=== PATIENT | male | born 1965 | race Caucasian/White ===

== ENCOUNTER 2021-04-12 19:35 | Inpatient (IN) | payer MEDICAID, SELFPAY ==
--- NOTE | 2021-04-12 19:47 | W.ED.MALEGU ---
Documented by User: Migel Paz MD 04/13/21 15:41 HPI - Male Genitourinary General: Chief complaint: ER Hold Stated complaint: FEVER Time Seen by Provider: 04/12/21 19:44 Source: family Limitations: language barrier History of Present Illness: HPI Narrative: Mr. Mittal is a 55-year-old gentleman with significant past medical history of MS who require suprapubic catheter who presents emergency department due to recurrent fevers. Symptom has been going on for a number of months after an exchange of his suprapubic catheter. It was subsequently rechanged today by urology however he continues to have fevers. No other specific focal signs of infection. No abdominal symptoms or tenderness. The fevers are variable however can recur and typically improve with Tylenol. Overall the intensity of symptoms has persisted. The course has been worsening somewhat overall. No other specific known exacerbating or alleviating factors. History is somewhat limited by baseline MS debility and language barrier despite use of humanities and languages professor line via telephone. Review of Systems General: Reports: 10 or more systems reviewed and unremarkable except in HPI and below Narrative: ROS limited by method of obtaining, history provided by . CONSTITUTIONAL: Recurrent fevers as noted in HPI, fatigue EYES - baseline visual disturbance EARS - denies ear issues. NOSE - denies congestion or rhinorrhea. THROAT - denies sore throat or difficulty swallowing. CARDIOVASCULAR - denies chest pain and palpitations RESPIRATORY - denies shortness of breath and cough GASTROINTESTINAL - denies abdominal pain, no nausea vomiting, no changes in bowel habits GENITOURINARY - suprapubic catheter as noted in HPI MUSCULOSKELETAL- denies deformity or pain SKIN - denies rashes or new changed skin lesions NEUROLOGIC - MS baseline debility HEMATOLOGIC/LYMPHATIC - denies easy bruising or lymphadenopathy. [facility] ED PFSH: Medical History (Updated 04/13/21 @ 13:11 by Erasto Glez MD) Chronic constipation Multiple sclerosis Neurogenic bladder Urinary retention Surgical History (Updated 04/13/21 @ 00:32 by Migel Paz MD) Chronic suprapubic catheter Status post cholecystectomy Family History Other Pancreatic cancer Social History Smoking and tobacco status: never smoked Alcohol intake: never Caregiver/support person: Yes Marital status: Physical Exam Narrative: EXAM NARRATIVE: GENERAL/CONSTITUTIONAL - ill-appearing, clammy skin. No acute distress. Eyes - disconjugate gaze, no conjunctival injection. ENMT - Atraumatic external nose and ears. Moist mucous membranes NECK - supple. trachea midline CARDIOVASCULAR - tachycardia. regular rate and rhythm. Peripheral pulses 2+ and equal RESPIRATORY -clear to auscultation bilaterally. No retractions or accessory muscle use. ABDOMEN/GI - Nontender/Nondistended. No tenderness to percussion or evidence of peritonitis. Suprapubic catheter ostomy site appears without evidence of cellulitis. MSK - Extremities without obvious deformity or tenderness to palpation SKIN - Warm, Dry NEURO - alert and appropriately oriented. Reportedly baseline debility PSYCH - Appropriate mood and affect Course ED course: - Patient was seen and evaluated by me at bedside - Patient placed on cardiac monitors, IV access obtained - Initial evaluation notable for somewhat ill appearance, no acute distress - Labs and imaging obtained and reviewed - Fluids and antibiotics given positive SIRS criteria with potential source of infection. - Labs notable for no leukocytosis. Metabolic panel with likely evidence of mild dehydration, patient has chronic MS which likely explains his low creatinine. Lactate normal. Urinalysis concerning for urinary tract infection. Patient Covid positive. - Imaging notable for normal chest x-ray. No significant acute inflammatory abnormality noted on CT abdomen pelvis. Given patient's baseline debility imaging was needed to rule out ascending infection. - Upon serial reexamination after treatment the patient was slightly improved though patient remained tachycardic - Based on patient history, evaluation, labs, and imaging as interpreted the most likely cause of the patient's condition is infectious. This case is significantly challenging as the patient has multiple sources of infection or possible infection for his symptoms. His procalcitonin is negative and he does not have leukocytosis though clinically he appears ill and is certainly at high risk for bacterial infection. - The case was discussed with Dr. Alvarez who will come and evaluate the patient - Patient care handed off to overnight ED physician Dr. Herr pending disposition after evaluation by hospitalist team. Vital Signs: Vital signs: Vital Signs Temperature 99.3 F 04/13/21 10:36 Pulse Rate 105 H 04/13/21 14:32 Respiratory Rate 20 H 04/13/21 11:15 Blood Pressure 96/67 04/13/21 14:32 Pulse Oximetry 97 04/13/21 14:32 MDM - Male Medical Records: Attestation: I reviewed the patient's medical records. Lab Data: Attestation: I reviewed the patient's lab results. Labs: Lab Results 04/12/21 04/12/21 04/12/21 Range/Units 20:20 20:20 20:20 WBC 7.2 (4.0-10.0) 10^3/ uL RBC 4.90 (4.1-5.3) 10^6/u L Hgb 13.8 (11.7-16.6) g/dL Hct 43.5 (42.0-52.0) % MCV 88.8 (80-94) fL MCH 28.2 (28.0-34.0) pg MCHC 31.7 (30.0-36.0) g/dL RDW 16.2 H (12.1-15.1) % Plt Count 303 (130-400) 10^3/c mm MPV 9.1 (7.4-10.4) fL Neut % (Auto) 59.7 % Lymph % (Auto) 30.4 % [place] % (Auto) 8.2 % Eos % (Auto) 0.0 % Baso % (Auto) 0.3 % Neut # (Auto) 4.27 (1.8-7.7) 10^3/u L Lymph # (Auto) 2.2 (0.8-4.8) 10^3/u L [place] # (Auto) 0.6 (0.2-0.9) 10^3/u L Eos # (Auto) 0.0 (0.0-0.8) 10^3/u L Baso # (Auto) 0.0 (0.0-0.1) 10^3/u L Nucleated RBC % (a uto) 0 % Nucleated RBCs # 0.0 /100WBC Sodium 131 L (136-145) mmol/L Potassium 4.5 (3.5-5.1) mmol/L Chloride 97 L (98-107) mmol/L Carbon Dioxide 25 (22-29) mmol/L Anion Gap 13.5 (5-19) BUN 11 (6-20) mg/dL Creatinine 0.3 L (0.7-1.2) mg/dL GFR Calculation 312.4 H (90-130) mL/min Glucose 119 H (65-115) mg/dL Calculated Osmolal ity 273 L (285-295) mOsm/k g Lactic Acid 0.9 (0.5-2.2) mmol/L Calcium 8.2 L (8.5-10.5) mg/dL Total Bilirubin 0.6 (0.15-1.2) mg/dL AST 21 (0-40) U/L ALT 17 (0-41) U/L Alkaline Phosphata se 88 (40-130) IU/L Total Protein 7.5 (6.6-8.7) g/dL Albumin 3.5 (3.5-5.2) g/dL Globulin 4.0 (1.3-4.6) g/dL Procalcitonin 0.24 (0-0.5) ng/mL Urine Color (Yellow) Urine Appearance (CLEAR) Urine pH (5-7) Ur Specific Gravit y (1.005-1.030) Urine Protein (Negative) Urine Glucose (UA) (Normal) Urine Ketones (Negative) Urine Blood (Negative) Urine Nitrate (Negative) Urine Bilirubin (Negative) Prot Sulfosalicyli c Acd (Negative) Urine Urobilinogen (Negative) mg/dL Ur Leukocyte Mirtha ase (Negative) Urine RBC (0-2) /hpf Urine WBC (0-5) /hpf Ur Squamous Epith Cells (0-5) /hpf Amorphous Sediment /hpf Urine Bacteria (NONE) /hpf Urine Mucus /hpf SARS-CoV-2 Ag (Rap id) (Negative) 04/12/21 04/12/21 Range/Units 21:55 22:00 WBC (4.0-10.0) 10^3/ uL RBC (4.1-5.3) 10^6/u L Hgb (11.7-16.6) g/dL Hct (42.0-52.0) % MCV (80-94) fL MCH (28.0-34.0) pg MCHC (30.0-36.0) g/dL RDW (12.1-15.1) % Plt Count (130-400) 10^3/c mm MPV (7.4-10.4) fL Neut % (Auto) % Lymph % (Auto) % [place] % (Auto) % Eos % (Auto) % Baso % (Auto) % Neut # (Auto) (1.8-7.7) 10^3/u L Lymph # (Auto) (0.8-4.8) 10^3/u L [place] # (Auto) (0.2-0.9) 10^3/u L Eos # (Auto) (0.0-0.8) 10^3/u L Baso # (Auto) (0.0-0.1) 10^3/u L Nucleated RBC % (a uto) % Nucleated RBCs # /100WBC Sodium (136-145) mmol/L Potassium (3.5-5.1) mmol/L Chloride (98-107) mmol/L Carbon Dioxide (22-29) mmol/L Anion Gap (5-19) BUN (6-20) mg/dL Creatinine (0.7-1.2) mg/dL GFR Calculation (90-130) mL/min Glucose (65-115) mg/dL Calculated Osmolal ity (285-295) mOsm/k g Lactic Acid (0.5-2.2) mmol/L Calcium (8.5-10.5) mg/dL Total Bilirubin (0.15-1.2) mg/dL AST (0-40) U/L ALT (0-41) U/L Alkaline Phosphata se (40-130) IU/L Total Protein (6.6-8.7) g/dL Albumin (3.5-5.2) g/dL Globulin (1.3-4.6) g/dL Procalcitonin (0-0.5) ng/mL Urine Color Yellow (Yellow) Urine Appearance Sl hazy (CLEAR) Urine pH 9 H (5-7) Ur Specific Gravit y 1.010 (1.005-1.030) Urine Protein 2+ H (Negative) Urine Glucose (UA) Norm (Normal) Urine Ketones 1+ H (Negative) Urine Blood 3+ H (Negative) Urine Nitrate Positive H (Negative) Urine Bilirubin Neg (Negative) Prot Sulfosalicyli c Acd Positive (Negative) Urine Urobilinogen Norm (Negative) mg/dL Ur Leukocyte Mirtha ase 2+ H (Negative) Urine RBC Too numerous to c nt H (0-2) /hpf Urine WBC Too numerous to c nt H (0-5) /hpf Ur Squamous Epith Cells 0-4 H (0-5) /hpf Amorphous Sediment 2+ /hpf Urine Bacteria 4+ H (NONE) /hpf Urine Mucus 4+ /hpf SARS-CoV-2 Ag (Rap id) Positive H (Negative) Imaging Data: CXR: Attestation: I personally reviewed and interpreted this imaging study as follows: My impression: No acute abnormality Critical Care Time Critical Care Time: Critical Care Time: Yes Total Critical Care Time: 35 Attestation: This case had a high probability of a clinically significant, sudden, or life threatening deterioration of this patient's condition which required my full and direct attention, intervention and personal management. Discharge Plan Discharge Admit Provider: Nicki Yu Clinical Impression: Acute UTI, Neurogenic bladder, Chronic suprapubic catheter, COVID-19 Condition: Stable Discharge Diet: Usual diet Discharge Activity: Resume usual activity Coding Level of Care Code ED Broke Handler for Chg Fwd Documented by User: Sarthak Herr MD 04/13/21 01:56 HPI - Male Genitourinary General: Chief complaint: ER Hold Stated complaint: FEVER Time Seen by Provider: 04/12/21 19:44 PFSH ED PFSH: Medical History (Updated 04/13/21 @ 13:11 by Erasto Glez MD) Chronic constipation Multiple sclerosis Neurogenic bladder Urinary retention Surgical History (Updated 04/13/21 @ 00:32 by Migel Paz MD) Chronic suprapubic catheter Status post cholecystectomy Family History Other Pancreatic cancer Social History Smoking and tobacco status: never smoked Alcohol intake: never Caregiver/support person: Yes Marital status: Course Vital Signs: Vital signs: Vital Signs Temperature 99.3 F 04/13/21 10:36 Pulse Rate 105 H 04/13/21 14:32 Respiratory Rate 20 H 04/13/21 11:15 Blood Pressure 96/67 04/13/21 14:32 Pulse Oximetry 97 04/13/21 14:32 MDM - Male MDM Narrative: Medical decision making narrative: Patient spiked another fever to 104. Patient was seen in the ER by hospitalist Dr. Byrd and he will admit. Patient has had IV antibiotics and IV fluids. Lab Data: Labs: Lab Results 04/12/21 04/12/21 04/12/21 Range/Units 20:20 20:20 20:20 WBC 7.2 (4.0-10.0) 10^3/ uL RBC 4.90 (4.1-5.3) 10^6/u L Hgb 13.8 (11.7-16.6) g/dL Hct 43.5 (42.0-52.0) % MCV 88.8 (80-94) fL MCH 28.2 (28.0-34.0) pg MCHC 31.7 (30.0-36.0) g/dL RDW 16.2 H (12.1-15.1) % Plt Count 303 (130-400) 10^3/c mm MPV 9.1 (7.4-10.4) fL Neut % (Auto) 59.7 % Lymph % (Auto) 30.4 % [place] % (Auto) 8.2 % Eos % (Auto) 0.0 % Baso % (Auto) 0.3 % Neut # (Auto) 4.27 (1.8-7.7) 10^3/u L Lymph # (Auto) 2.2 (0.8-4.8) 10^3/u L [place] # (Auto) 0.6 (0.2-0.9) 10^3/u L Eos # (Auto) 0.0 (0.0-0.8) 10^3/u L Baso # (Auto) 0.0 (0.0-0.1) 10^3/u L Nucleated RBC % (a uto) 0 % Nucleated RBCs # 0.0 /100WBC Sodium 131 L (136-145) mmol/L Potassium 4.5 (3.5-5.1) mmol/L Chloride 97 L (98-107) mmol/L Carbon Dioxide 25 (22-29) mmol/L Anion Gap 13.5 (5-19) BUN 11 (6-20) mg/dL Creatinine 0.3 L (0.7-1.2) mg/dL GFR Calculation 312.4 H (90-130) mL/min Glucose 119 H (65-115) mg/dL Calculated Osmolal ity 273 L (285-295) mOsm/k g Lactic Acid 0.9 (0.5-2.2) mmol/L Calcium 8.2 L (8.5-10.5) mg/dL Total Bilirubin 0.6 (0.15-1.2) mg/dL AST 21 (0-40) U/L ALT 17 (0-41) U/L Alkaline Phosphata se 88 (40-130) IU/L Total Protein 7.5 (6.6-8.7) g/dL Albumin 3.5 (3.5-5.2) g/dL Globulin 4.0 (1.3-4.6) g/dL Procalcitonin 0.24 (0-0.5) ng/mL Urine Color (Yellow) Urine Appearance (CLEAR) Urine pH (5-7) Ur Specific Gravit y (1.005-1.030) Urine Protein (Negative) Urine Glucose (UA) (Normal) Urine Ketones (Negative) Urine Blood (Negative) Urine Nitrate (Negative) Urine Bilirubin (Negative) Prot Sulfosalicyli c Acd (Negative) Urine Urobilinogen (Negative) mg/dL Ur Leukocyte Mirtha ase (Negative) Urine RBC (0-2) /hpf Urine WBC (0-5) /hpf Ur Squamous Epith Cells (0-5) /hpf Amorphous Sediment /hpf Urine Bacteria (NONE) /hpf Urine Mucus /hpf SARS-CoV-2 Ag (Rap id) (Negative) 04/12/21 04/12/21 Range/Units 21:55 22:00 WBC (4.0-10.0) 10^3/ uL RBC (4.1-5.3) 10^6/u L Hgb (11.7-16.6) g/dL Hct (42.0-52.0) % MCV (80-94) fL MCH (28.0-34.0) pg MCHC (30.0-36.0) g/dL RDW (12.1-15.1) % Plt Count (130-400) 10^3/c mm MPV (7.4-10.4) fL Neut % (Auto) % Lymph % (Auto) % [place] % (Auto) % Eos % (Auto) % Baso % (Auto) % Neut # (Auto) (1.8-7.7) 10^3/u L Lymph # (Auto) (0.8-4.8) 10^3/u L [place] # (Auto) (0.2-0.9) 10^3/u L Eos # (Auto) (0.0-0.8) 10^3/u L Baso # (Auto) (0.0-0.1) 10^3/u L Nucleated RBC % (a uto) % Nucleated RBCs # /100WBC Sodium (136-145) mmol/L Potassium (3.5-5.1) mmol/L Chloride (98-107) mmol/L Carbon Dioxide (22-29) mmol/L Anion Gap (5-19) BUN (6-20) mg/dL Creatinine (0.7-1.2) mg/dL GFR Calculation (90-130) mL/min Glucose (65-115) mg/dL Calculated Osmolal ity (285-295) mOsm/k g Lactic Acid (0.5-2.2) mmol/L Calcium (8.5-10.5) mg/dL Total Bilirubin (0.15-1.2) mg/dL AST (0-40) U/L ALT (0-41) U/L Alkaline Phosphata se (40-130) IU/L Total Protein (6.6-8.7) g/dL Albumin (3.5-5.2) g/dL Globulin (1.3-4.6) g/dL Procalcitonin (0-0.5) ng/mL Urine Color Yellow (Yellow) Urine Appearance Sl hazy (CLEAR) Urine pH 9 H (5-7) Ur Specific Gravit y 1.010 (1.005-1.030) Urine Protein 2+ H (Negative) Urine Glucose (UA) Norm (Normal) Urine Ketones 1+ H (Negative) Urine Blood 3+ H (Negative) Urine Nitrate Positive H (Negative) Urine Bilirubin Neg (Negative) Prot Sulfosalicyli c Acd Positive (Negative) Urine Urobilinogen Norm (Negative) mg/dL Ur Leukocyte Mirtha ase 2+ H (Negative) Urine RBC Too numerous to c nt H (0-2) /hpf Urine WBC Too numerous to c nt H (0-5) /hpf Ur Squamous Epith Cells 0-4 H (0-5) /hpf Amorphous Sediment 2+ /hpf Urine Bacteria 4+ H (NONE) /hpf Urine Mucus 4+ /hpf SARS-CoV-2 Ag (Rap id) Positive H (Negative) Discharge Plan Discharge Admit Provider: Nicki Yu Clinical Impression: Acute UTI, Neurogenic bladder, Chronic suprapubic catheter, COVID-19 Condition: Stable Discharge Diet: Usual diet Discharge Activity: Resume usual activity Coding Level of Care Code ED Broke Handler for Rona Machuca
[2021-04-12 19:51] VITALS: BP 122/87; PULSE 114; RESP 22; TEMP 37.3; O2SAT 96; BMI 25.1
--- NOTE | 2021-04-12 19:58 | XRR_ITS ---
PROCEDURE INFORMATION: Exam: XR Chest Exam date and time: 04/12/2021 7:58 PM Age: 55 years old Clinical indication: Cough; Additional info: Cough, sepsis TECHNIQUE: Imaging protocol: XR of the chest. Views: 1 view. COMPARISON: CR Chest 1 [place] [id number] 12/20/2015 5:58 PM FINDINGS: Lungs: Unremarkable. No consolidation. Pleural spaces: Unremarkable. No pleural effusion. No pneumothorax. Heart/Mediastinum: Unremarkable. No cardiomegaly. Bones/joints: Unremarkable. XR/XR chest 1V portable [id number] IMPRESSION: No focal consolidation.
[2021-04-12 20:42] LABS: Basophils % 0.3 %; Hematocrit 43.5 % (42.0-52.0); Hemoglobin 13.8 g/dL (11.7-16.6); Lymphocytes # 2.2 10^3/uL (0.8-4.8); Lymphocytes % 30.4 %; Mean Corpuscular HGB Conc 31.7 g/dL (30.0-36.0); Mean Corpuscular Hemoglobin 28.2 pg (28.0-34.0); Mean Corpuscular Volume 88.8 fL (80-94); Mean Platelet Volume 9.1 fL (7.4-10.4); Monocytes # 0.6 10^3/uL (0.2-0.9); Monocytes % 8.2 %; Neutrophils # 4.27 10^3/uL (1.8-7.7); Neutrophils % 59.7 %; Nucleated Red Blood Cells % 0 %; Platelet Count 303 10^3/cmm (130-400); Red Cell Distribution Width 16.2 % (12.1-15.1); White Blood Count 7.2 10^3/uL (4.0-10.0)
[2021-04-12 21:04] LABS: Lactic Sepsis W/Reflex 0.9 mmol/L (0.5-2.2)
[2021-04-12 21:06] LABS: Alanine Aminotransferase 17 U/L (0-41); Albumin Level 3.5 g/dL (3.5-5.2); Alkaline Phosphatase 88 IU/L (40-130); Anion Gap 13.5 (5-19); Aspartate Amino Transferase 21 U/L (0-40); Blood Urea Nitrogen 11 mg/dL (6-20); Calcium 8.2 mg/dL (8.5-10.5); Carbon Dioxide 25 mmol/L (22-29); Chloride 97 mmol/L (98-107); Glomerular Filtration Rate 312.4 mL/min (90-130); Glucose 119 mg/dL (65-115); Osmolality Calculated 273 mOsm/kg (285-295); Potassium 4.5 mmol/L (3.5-5.1); Sodium 131 mmol/L (136-145); Total Bilirubin 0.6 mg/dL (0.15-1.2); Total Protein 7.5 g/dL (6.6-8.7)
[2021-04-12 21:13] LABS: Procalcitonin 0.24 ng/mL (0-0.5)
[2021-04-12] MEDS: LACTATED RINGERS 2313.33 ML IV (21:30)
--- NOTE | 2021-04-12 22:37 | CTR_ITS ---
PROCEDURE INFORMATION: Exam: CT Abdomen And Pelvis With Contrast Exam date and time: 04/12/2021 10:37 PM Age: 55 years old Clinical indication: Other: Sepsis; Additional info: Fuo, sepsis, suprapubic cath TECHNIQUE: Imaging protocol: Computed tomography of the abdomen and pelvis with contrast. Radiation optimization: All CT scans at this facility use at least one of these dose optimization techniques: automated exposure control; mA and/or kV adjustment per patient size (includes targeted exams where dose is matched to clinical indication); or iterative reconstruction. Contrast material: OMNI 300; Contrast volume: 95 ml; Contrast route: INTRAVENOUS (IV); COMPARISON: CR Abdomen Series Acute [id number] 11/18/2015 8:36 AM RADIATION DOSE METRICS: Total DLP (mGy-cm): 1611.4 FINDINGS: Tubes, catheters and devices: Percutaneous suprapubic bladder catheter. Liver: Normal. No mass. Gallbladder and bile ducts: Normal. No calcified stones. No ductal dilation. Pancreas: Normal. No ductal dilation. Spleen: Normal. No splenomegaly. Adrenal glands: Normal. No mass. Kidneys and ureters: Bilateral renal pelvis stones. Stomach and bowel: Unremarkable. No obstruction. No mucosal thickening. Appendix: No evidence of appendicitis. Intraperitoneal space: Unremarkable. No free air. No significant fluid collection. Vasculature: Unremarkable. No abdominal aortic aneurysm. Lymph nodes: Unremarkable. No enlarged lymph nodes. Urinary bladder: Unremarkable as visualized. Reproductive: Unremarkable as visualized. Bones/joints: Unremarkable. No acute fracture. Soft tissues: Unremarkable. CT/CT abdomen pelvis w con* [id number] IMPRESSION: 1. Percutaneous suprapubic bladder catheter. 2. Bilateral renal pelvis stones. Radiation Dose CTDIVOL = (mGy): DLP = 1611.4 (mGy-cm)
[2021-04-12 22:42] LABS: SARS Covid-2 Antigen Positive (Negative)
[2021-04-12] MEDS: iohexol 300 mg/mL 100 mL Btl IV (22:51)
[2021-04-12 23:05] LABS: Bilirubin Urine Neg (Negative); Blood Urine 3+ (Negative); Glucose Urine UA Norm (Normal); Ketones Urine 1+ (Negative); Leukocyte Esterase Urine 2+ (Negative); Nitrate Urine Positive (Negative); Protein Urine 2+ (Negative); Sulfosalicylic Acid Urine Positive (Negative); Urine Appearance SL Hazy (CLEAR); Urine Color Yellow (Yellow); Urobilinogen Urine Norm (Negative); pH Urine 9 (5-7)
[2021-04-12 23:08] LABS: Add Urine Culture? Yes; Amorphous Sediment Urine 2+ /hpf; Bacteria Urine 4+ /hpf; Mucus Urine 4+ /hpf; RBC Urine TOO NUMEROUS TO CNT /hpf (0-2); Squamous Epithelial Cell Urine 0-4 /hpf (0-5); WBC Urine TOO NUMEROUS TO CNT /hpf (0-5)
[2021-04-13] VITALS (18 sets, daily range): BP systolic 87–127; BP diastolic 52–83; PULSE 99–141; RESP 18–32; TEMP 37.1–40; O2SAT 92–98
--- NOTE | 2021-04-13 01:08 | PM.HP ---
Providers/Chief Complaint Admitting Physician: Nicki Yu MD Primary Care Provider: Gaby Martines MD Chief Complaint: FEVER History of Present Illness 55-year-old male with past medical history significant forSevere debility due to multiple sclerosis, leading to neurogenic bladder and chronic suprapubic catheter who presented to the hospital with fevers.Upon arrival to emergency room patients laboratory workup showed a WBC of 7.2, hemoglobin of 13.8, hematocrit of 43.5 and a platelet count of 303.Sodium 131, potassium 4.5, chloride 97, bicarb 25, BUN 11 and creatinine of 0.3. Lactic acid is 0.9. procalcitonin of 0.24.Patient was found to have COVID-19 positive.Imaging studies included chest x-ray which did not show any focal consolidation.CT abdomen pelvis showed bilateral renal pelvis stones and percutaneous suprapubic bladder catheter.While in emergency room patient was noted to have a fever of 104.0. Addition was noted to have sinus tachycardia with heart rated 141 and tachypnea. Patient was started on vancomycin 2g IV x 1 and Zosyn 4.5 g x 1. He was also given multiple doses of IVF. Of note patient was recently seen by Dr. Reece during which time parker catheter was changed. Review of Systems General: Reports: ROS unobtainable due to medical condition Medications/Allergies Home Medications Medication Instructions Recorded Confirmed Last Taken Type bisacodyl 5 mg tablet 5 mg PO DAILY 09/14/19 04/12/21 Unknown History hydrocortisone acetate 1 % rectal See Rx Instructions .ROUTE 09/14/19 04/12/21 04/12/21 History cream .COMPLEX PRN omega-3 fatty acids 1,000 mg 1,000 mg PO DAILY cap 09/14/19 04/12/21 Unknown History capsule triamcinolone acetonide 0.025 % 1 applic TOPICAL BID 09/14/19 04/12/21 Unknown History topical cream Allergies Allergy/AdvReac Type Severity Reaction Status Date / Time latex Allergy UNKNOWN Verified 04/12/21 09:15 PFSH Acute PFSH: Medical History (Updated 04/13/21 @ 05:20 by Elicia Alvarez MD) Chronic constipation Multiple sclerosis Neurogenic bladder Urinary retention Surgical History (Updated 04/13/21 @ 00:32 by Migel Paz MD) Chronic suprapubic catheter Status post cholecystectomy Family History Other Pancreatic cancer Social History Smoking and tobacco status: never smoked Alcohol intake: never Caregiver/support person: Yes Marital status: Vitals/I&O/Wt Last Vital Signs Temp 104.0 F H 04/13/21 01:15 Pulse 141 H 04/13/21 01:15 Resp 32 H 04/13/21 01:15 BP 127/73 04/13/21 01:15 Pulse Ox 93 04/13/21 01:15 Weight last 48 hrs Weight 77.111 kg Physical Exam Narrative: EXAM NARRATIVE: Chronically ill-appearing HEENT -grossly unremarkable Chest-nonlabored respiration CVS/sinus tachycardia abdomen-suprapubic cath Extremities-no edema Data : 04/12/21 20:20 04/12/21 20:20 Micro: Microbiology 04/12/21 20:35 Blood Culture - Preliminary Blood SPECIMEN COLLECTED 04/12/21 20:20 Blood Culture - Preliminary Blood SPECIMEN COLLECTED A&P Assessment and plan (1) Sepsis due to urinary tract infection: Status: Acute Sepsis due to UTI with chronic suprapubic catheter with superimposed COVID19 UA 2+ leuk esterase, nitrates Continued Zosyn, Vancomycin pharmacy to dose Follow up on blood culture x 2 Follow up on urine culture Cautious IVF Droplet precautions Acute encephalopathy Infectious Continue iV abx NPO Speech eval Aspiration pneumonia Attestations Medical Necessity Statement*: Will require over 2 midnight stay in hospital for treatment evaluation of sepsis requiring IV antibiotics. Time Spent in Patient Care: Greater than 35 minutes Coding Level of Care Code Acute Process Improvement Analyst for g Fwd Diagnoses Sepsis due to urinary tract infection A41.9; N39.0
[2021-04-13] MEDS: acetaminophen 500 mg Tablet 1000 MG PO (02:10)
[2021-04-13] MEDS: piperacillin-tazobactam 4.5 GM in sodium chloride 0.9% (plus) 50 ML IV (03:10)
--- NOTE | 2021-04-13 05:31 | PC.PHAR ---
Vancomycin is dosed at 1500mg IVPB every 12 hours to produce a predicted trough level of 10.58(population based pharmacokinetic analysis). A trough level has been ordered from the lab to be obtained before the fourth dose to confirm and adjust if needed. The Zosyn is dosed at 3.375gm IVPB every 8 hours on the basis of the creatinine clearance of 130.
[2021-04-13] MEDS: heparin 5,000 unit/mL INJ 1 mL 5000 UNIT SUBCUT ×3 (07:53→22:33)
[2021-04-13] MEDS: pantoprazole 40 mg SDV IVP (07:53)
[2021-04-13] MEDS: acetaminophen 325 mg Tablet 650 MG PO (08:10)
--- NOTE | 2021-04-13 08:14 | PC.NURSE ---
suprapubic catherter in place,
--- NOTE | 2021-04-13 09:55 | PC.NURSE ---
PT'S UNSURE WHEN SUPRAPUBIC CATHETER WAS PLACED.
[2021-04-13] MEDS: piperacillin-tazobactam 3.375 GM in sodium chloride 0.9% (plus) 50 ML IV ×2 (10:26→18:04)
[2021-04-13] MEDS: lactated ringers 500 ML 999 ML IV ×2 (11:04→13:45)
--- NOTE | 2021-04-13 13:03 | PM.PN ---
Subjective Subjective: Interval history: Patient was examined this morning, he is in the emergency room, waiting a bed, he is nonverbal,, his mother is at bedside, [place] armored truck driver was used mother tells me that at baseline he requires help with all activities of daily living, including feeding, dressing, she tells me that he can barely move the finger, she can understand him, he can communicate with her at times, but when he is ill he stopped communicating like now, she tells me that recently he started developing fevers, he saw urology yesterday and his suprapubic catheter was changed, and he was told he had a bladder infection, no cough, no shortness of breath, no known exposure to COVID-19, has not received the Covid vaccine. Currently in the emergency room, patient is nonverbal, appears ill, heart rates in the 120s, sinus, respiratory rate 15-20, he had a T-max of 104, 2 L, blood pressure 97/59 Vitals/I&O/Wt Last Vital Signs Temp 99.3 F 04/13/21 10:36 Pulse 116 H 04/13/21 11:15 Resp 20 H 04/13/21 11:15 BP 93/59 04/13/21 11:15 Pulse Ox 97 04/13/21 11:15 Weight last 48 hrs Weight 77.111 kg Physical Exam Const: COMMON NORMALS: no acute distress and alert EXAM LIMITATIONS: altered mental status GENERAL APPEARANCE: ill appearing ORIENTATION/CONSCIOUSNESS: Yes awake and Yes confused; not oriented to person, not oriented to place and not oriented to time Resp: COMMON NORMALS: normal respiratory effort, No retractions, No use of accessory muscles and clear to auscultation bilaterally AUSCULTATION: clear to auscultation bilaterally Cardio: COMMON NORMALS: regular rhythm, S1 normal heart sound present and S2 normal heart sound present RATE: tachycardic RHYTHM: regular rhythm HEART SOUNDS: S1 normal heart sound present and S2 normal heart sound present GI: COMMON NORMALS: Normal to inspection, nondistended, normoactive bowel sounds present and Soft to palpation AUSCULTATION: Yes normoactive bowel sounds PALPATION: Yes Soft to palpation : COMMON NORMALS: Yes no CVA tenderness BLADDER/KIDNEY EXAM: Yes no CVA tenderness Back/Pelvis: COMMON NORMALS: no CVA tenderness Neuro: SENSORIUM/ORIENTATION: Yes alert, No oriented to person, No oriented to place and No oriented to time Urinary Catheter Management^: Suprapubic: Cath Placed During This Visit: yes Urinary Catheter Date of Insertion: 04/07/21 Sepsis: Is patient septic: Yes Focused sepsis exam performed: Yes Date exam was performed: 04/13/21 Time exam was performed: 09:00 Data : 04/12/21 20:20 04/12/21 20:20 Micro: Microbiology 04/12/21 20:35 Blood Culture - Preliminary Blood SPECIMEN COLLECTED 04/12/21 20:20 Blood Culture - Preliminary Blood SPECIMEN COLLECTED A&P Assessment and plan (1) Sepsis due to urinary tract infection: -Secondary to urinary tract infection, and COVID-19 infection -With hypotension despite sepsis bolus, tachycardia, tachypnea, fevers, requiring 2 L -Has a history of suprapubic catheter -Catheter was recently changed -Status post sepsis bolus, broad-spectrum antibiotic therapy, still looks pale, diaphoretic, blood pressure 90s over 50s, tachycardic, tachypneic, temperature 99.4 on 2 L -CT scan of abdomen pelvis does show bilateral nephrolithiasis, no obstructive uropathy, no significant hydronephrosis Plan: -Requires ICU admission due to septic shock -LR boluses to maintain MAP greater than 65, NICOM monitoring -If required Levophed, maintain MAP greater than 65 -Continue broad-spectrum antibiotic therapy vancomycin, Zosyn -Monitor respiratory status, monitor blood pressure, monitor urine output -Repeat blood work, CBC, CMP, D-dimer, lactic acid, pro-[place], CRP -Follow blood cultures, urine cultures, sputum cultures -For COVID-19 infection, is requiring 2 L, is tachypneic, pale, diaphoretic, however I think that the majority of his sepsis is from the urinary tract infection -Currently I feel that starting him on Decadron and remdesivir will increase the risk of his immunosuppression and increase the risk of severe urinary tract infection, so for now will hold off on remdesivir and Decadron for his COVID-19 infection. However if he has evidence of pneumonia radiographically or has worsening hypoxia or evidence of respiratory distress, will start Decadron remdesivir -Vitamin C, zinc, vitamin D, albuterol, budesonide -Heparin for DVT prophylaxis -Full code, I readdressed this with mother using a armored truck driver, she wants all measures done for her son Status: Acute (2) Acute UTI: Status: Acute (3) COVID-19: Status: Acute (4) Septic shock: Status: Acute (5) Chronic suprapubic catheter: Status: Acute (6) Hypoxia: Status: Acute Attestations Medical Necessity Statement*: Patient requires hospitalization and due to sepsis, septic shock, secondary to urinary tract infection, COVID-19 infection, ICU, requiring pressors, Coding Level of Care Code Acute Tool And Die Maker/Designer for [facility] Fwd Diagnoses Sepsis due to urinary tract infection A41.9; N39.0 Acute UTI N39.0 COVID-19 U07.1 Septic shock A41.9; R65.21 Chronic suprapubic catheter Z93.59 Hypoxia R09.02 Sepsis Event Note Evaluation Current stage of sepsis: severe sepsis Initial hypotension due to sepsis/infection: SBP < 90 mmHg Persistent hypotension due to sepsis/infection: SBP < 90 mmHg Possible source: pulmonary and genitourinary Focused Exam Vital Signs Temp Pulse Resp BP Pulse Ox 04/13/21 11:15 116 H 20 H 93/59 97 04/13/21 10:36 99.3 F 119 H 18 97/56 95 04/13/21 08:11 101 F H 135 H 20 H 100/63 92 04/13/21 01:15 104.0 F H 141 H 32 H 127/73 93 Cardiovascular exam: Present tachycardia Capillary refill: > 3 Seconds Peripheral pulse strength: 2+ Slightly Diminished Peripheral pulse location: Pedal Skin exam: flushed Date exam was performed: 04/13/21 Time exam was performed: 13:09 Problem List (1) Sepsis due to urinary tract infection: Status: Acute (2) Acute UTI: Status: Acute (3) COVID-19: Status: Acute (4) Septic shock: Status: Acute (5) Chronic suprapubic catheter: Status: Acute (6) Hypoxia: Status: Acute
[2021-04-13 13:43] LABS: ABG PCO2 36.6 mmHg (35-45); ABG PH Result 7.47 (7.35-7.45); Arterial Blood Gas Hematocrit 36.7 % (42-52); Base Excess ABG 3.1 mmol/L (-2.0-2.0); Blood Gas Allen Test Pos; Blood Gas Operator Identificat MONRO; Blood Gas Sample Site Radial, right; Blood Gas Sample Type Arterial; HCO3 ABG 26.7 mmol/L (22-26); Oxygen Device NC
[2021-04-13] MEDS: vancomycin 1,500 MG/300 ML PIGGYBACK 150 MG IV (14:11)
[2021-04-13] MEDS: ascorbic acid 500 mg Tablet PO (18:04)
[2021-04-13 19:23] LABS: Basophils % 0.2 %; Hematocrit 36.8 % (42.0-52.0); Hemoglobin 11.6 g/dL (11.7-16.6); Lymphocytes # 0.9 10^3/uL (0.8-4.8); Lymphocytes % 5.5 %; Mean Corpuscular HGB Conc 31.5 g/dL (30.0-36.0); Mean Corpuscular Hemoglobin 28.1 pg (28.0-34.0); Mean Corpuscular Volume 89.1 fL (80-94); Mean Platelet Volume 9.5 fL (7.4-10.4); Monocytes # 0.4 10^3/uL (0.2-0.9); Monocytes % 2.2 %; Neutrophils # 14.49 10^3/uL (1.8-7.7); Neutrophils % 91.3 %; Nucleated Red Blood Cells % 0 %; Platelet Count 148 10^3/cmm (130-400); Red Blood Count 4.13 10^6/uL (4.1-5.3); Red Cell Distribution Width 14.1 % (12.1-15.1); White Blood Count 15.9 10^3/uL (4.0-10.0)
[2021-04-13 19:36] LABS: D Dimer 2.24 ug/mIFEU (0-0.59)
[2021-04-13 19:39] LABS: Lactate (Lactic Acid level) 0.9 mmol/L (0.5-2.2)
[2021-04-13 19:57] LABS: Alanine Aminotransferase 17 U/L (0-41); Albumin Level 2.7 g/dL (3.5-5.2); Alkaline Phosphatase 73 IU/L (40-130); Anion Gap 15.8 (5-19); Aspartate Amino Transferase 28 U/L (0-40); Blood Urea Nitrogen 13 mg/dL (6-20); C Reactive Protein 191.7 mg/L (0.0-4.9); Calcium 7.2 mg/dL (8.5-10.5); Carbon Dioxide 23 mmol/L (22-29); Chloride 105 mmol/L (98-107); Creatinine Clr Calc Pharmacy 125.0147; Globulin 3.3 g/dL (1.3-4.6); Glomerular Filtration Rate 117.5 mL/min (90-130); Glucose 113 mg/dL (65-115); Osmolality Calculated 291 mOsm/kg (285-295); Potassium 3.8 mmol/L (3.5-5.1); Sodium 140 mmol/L (136-145); Total Bilirubin 0.8 mg/dL (0.15-1.2)
[2021-04-13] MEDS: budesonide 0.5 mg/2 mL Neb 0.25 MG INHALATION (21:12)
[2021-04-14] VITALS (7 sets, daily range): BP systolic 84–109; BP diastolic 47–62; PULSE 76–112; RESP 16–22; TEMP 37.1–38.4; O2SAT 91–97
[2021-04-14] MEDS: vancomycin 1,500 MG/300 ML PIGGYBACK 150 MG IV ×2 (01:10→11:45)
[2021-04-14] MEDS: piperacillin-tazobactam 3.375 GM in sodium chloride 0.9% (plus) 50 ML IV (04:28)
[2021-04-14] MEDS: heparin 5,000 unit/mL INJ 1 mL 5000 UNIT SUBCUT ×3 (06:11→21:37)
[2021-04-14] MEDS: pantoprazole 40 mg SDV IVP (06:12)
[2021-04-14] MEDS: budesonide 0.5 mg/2 mL Neb 0.25 MG INHALATION ×2 (11:14→22:12)
[2021-04-14] MEDS: ascorbic acid 500 mg Tablet PO ×2 (11:35→19:51)
[2021-04-14] MEDS: midodrine 5 mg TABLET 10 MG PO ×3 (11:35→21:36)
[2021-04-14] MEDS: acetaminophen 325 mg Tablet 650 MG PO (11:35)
[2021-04-14] MEDS: lactated ringers 1,000 ML 999 ML IV (11:36)
[2021-04-14] MEDS: cholecalciferol (vitamin D3) 1,000 unit Tablet 1000 UNIT PO (11:36)
[2021-04-14] MEDS: zinc gluconate 50 mg Tablet PO (11:36)
--- NOTE | 2021-04-14 11:38 | P.PN_ITS ---
Subjective Subjective: Interval history: This morning patient was examined, he is a bit more verbal, but does not follow commands, blood pressures are soft, receiving fluids, remains febrile, tachycardic, he is on room air, his is at bedside Using a [employer] psychological operations, I discussed my concerns with about his sepsis secondary to UTI, he is getting better, there is no evidence of pyelonephritis or obstructive uropathy, but he continues to have fever so we will continue broad-spectrum antibiotic therapy, continue to clinically monitor him. Currently as he is not requiring any oxygen, and he does not look like he is in respiratory distress I will hold off on treating the COVID-19 infection, and steroids and remdesivir can increase the risk of immunosuppression and increase the risk the risk of worsening sepsis. Patient is is in the room, I advised nursing staff before she was transferred up to her room that his was not allowed to be with him. She is not vaccinated against COVID-19, I advised that for now I will not allow her to be in the room, as she has increased risk of dewayne COVID-19 pneumonia, and morbidity mortality associated, and she is not vaccinated.. Patient tells me that she is only person that can understand him, and she is only person that can feed him, and she really wanted to be in the room with him. I advised her that he is likely to be here for the next few days, and that the duration of exposure to COVID-19 is quite high for her, and I am worried about her health. For now what I can do for her is allow her to come back to see him for an hour or so wearing appropriate PPE to see him. I advised her that she does have an risk of dewayne COVID-19, and morbidity mortality associated, although we will have her wear PPE, there is still risk associated. After discussing the risks and benefits, she voiced her son, all questions answered, agreed to leave, and come back to see him. Vitals/I&O/Wt Last Vital Signs Temp 101.2 F H 04/14/21 08:00 Pulse 109 H 04/14/21 08:00 Resp 16 04/14/21 08:00 BP 90/50 04/14/21 08:00 Pulse Ox 92 04/14/21 08:00 04/13/21 04/14/21 04/14/21 22:59 06:59 14:59 Intake Total 300 / 1350 350 / 1700 50 / 50 Balance 300 / 1350 350 / 1700 50 / 50 Weight last 48 hrs Weight 77.111 kg Physical Exam Const: EXAM LIMITATIONS: altered mental status GENERAL APPEARANCE: cooperative and ill appearing ORIENTATION/CONSCIOUSNESS: Yes awake; not oriented to person, not oriented to place and not oriented to time Neck/C-Spine: COMMON NORMALS: no JVD Resp: COMMON NORMALS: normal respiratory effort, No retractions, No use of accessory muscles and clear to auscultation bilaterally AUSCULTATION: clear to auscultation bilaterally Cardio: COMMON NORMALS: no JVD, regular rhythm, S1 normal heart sound present and S2 normal heart sound present RATE: tachycardic RHYTHM: regular rhythm HEART SOUNDS: S1 normal heart sound present and S2 normal heart sound present GI: COMMON NORMALS: Normal to inspection, nondistended, normoactive bowel sounds present, Soft to palpation and non-tender PALPATION: Yes Soft to palpation Extremity: COMMON NORMALS: no pedal edema Neuro: SENSORIUM/ORIENTATION: No oriented to person, No oriented to place and No oriented to time Urinary Catheter Management^: Suprapubic: Cath Placed During This Visit: yes Reason for Continuing Indwelling Catheter: Other Urinary Catheter Date of Insertion: 04/07/21 Data : 04/13/21 19:18 04/13/21 19:18 Micro: Microbiology 04/13/21 14:20 Urine Culture - Preliminary Urine Suprapubic 04/12/21 21:55 Urine Culture - Preliminary Urine,Clean Catch Gram Negative Rods Gram Negative Rods#2 04/12/21 20:20 Blood Culture - Preliminary Blood NEGATIVE TO DATE 04/12/21 20:35 Blood Culture - Preliminary Blood NEGATIVE TO DATE 04/13/21 14:20 Bacterial Antigens - Final Urine,Clean Catch A&P Assessment and plan (1) Sepsis due to urinary tract infection: -Secondary to urinary tract infection, and COVID-19 infection -With hypotension despite sepsis bolus, tachycardia, tachypnea, fevers, requiring 2 L -Has a history of suprapubic catheter -Catheter was recently changed -CT scan of abdomen pelvis does show bilateral nephrolithiasis, no obstructive uropathy, no significant hydronephrosis -Procalcitonin 44, CRP 191 -Febrile overnight, tachycardic, soft blood pressures Plan: -Currently in Covid unit -LR boluses to maintain MAP greater than 65, NICOM monitoring -Start midodrine 10 mg 3 times daily -If required Levophed, maintain MAP greater than 65 -Continue broad-spectrum antibiotic therapy vancomycin, Zosyn -Monitor respiratory status, monitor blood pressure, monitor urine output -Follow blood cultures, urine cultures, sputum cultures -For COVID-19 infection, is on room air, is not tachypneic, however I think that the majority of his sepsis is from the urinary tract infection -Currently I feel that starting him on Decadron and remdesivir will increase the risk of his immunosuppression and increase the risk of severe urinary tract infection, so for now will hold off on remdesivir and Decadron for his COVID-19 infection. However if he has evidence of pneumonia radiographically or has worsening hypoxia or evidence of respiratory distress, will start Decadron remdesivir -Vitamin C, zinc, vitamin D, albuterol, budesonide -Heparin for DVT prophylaxis -Full code, I readdressed this with mother using a psychological operations, she wants all measures done for her son Status: Acute (2) Acute UTI: Status: Acute (3) COVID-19: Status: Acute (4) Septic shock: Status: Acute (5) Chronic suprapubic catheter: Status: Acute (6) Hypoxia: Status: Acute Attestations Medical Necessity Statement*: Patient requires hospitalization due to sepsis secondary to UTI, COVID-19 him infection Coding Level of Care Code Acute Recordak Operator for [facility] Diagnoses Sepsis due to urinary tract infection A41.9; N39.0 Acute UTI N39.0 COVID-19 U07.1 Septic shock A41.9; R65.21 Chronic suprapubic catheter Z93.59 Hypoxia R09.02
[2021-04-14] MEDS: sodium chloride 0.9% 500 ML 999 ML IV (16:03)
[2021-04-14] MEDS: ipratropium-albuterol 3 mL Neb INHALATION (22:14)
[2021-04-14 22:15] LABS: Basophils % 0.2 %; Eosinophils % 0.1 %; Hematocrit 32.9 % (42.0-52.0); Hemoglobin 10.4 g/dL (11.7-16.6); Lymphocytes # 1.7 10^3/uL (0.8-4.8); Mean Corpuscular HGB Conc 31.6 g/dL (30.0-36.0); Mean Corpuscular Hemoglobin 28.2 pg (28.0-34.0); Mean Corpuscular Volume 89.2 fL (80-94); Mean Platelet Volume 10.7 fL (7.4-10.4); Monocytes # 0.4 10^3/uL (0.2-0.9); Monocytes % 4.3 %; Neutrophils # 6.76 10^3/uL (1.8-7.7); Nucleated Red Blood Cells % 0 %; Platelet Count 121 10^3/cmm (130-400); Red Blood Count 3.69 10^6/uL (4.1-5.3); Red Cell Distribution Width 14.3 % (12.1-15.1); White Blood Count 8.9 10^3/uL (4.0-10.0)
[2021-04-14 22:28] LABS: D Dimer 0.76 ug/mIFEU (0-0.59); Lactate (Lactic Acid level) 1.2 mmol/L (0.5-2.2)
[2021-04-14 22:50] LABS: NT Pro B Type Natriuretic Pept 1312 pg/mL (0-125); Vancomycin Trough 34.7 ug/mL (10-15)
[2021-04-14 22:51] LABS: Alanine Aminotransferase 13 U/L (0-41); Albumin Level 2.3 g/dL (3.5-5.2); Alkaline Phosphatase 55 IU/L (40-130); Anion Gap 12.6 (5-19); Aspartate Amino Transferase 23 U/L (0-40); Blood Urea Nitrogen 11 mg/dL (6-20); C Reactive Protein 179.4 mg/L (0.0-4.9); Carbon Dioxide 21 mmol/L (22-29); Chloride 104 mmol/L (98-107); Globulin 2.8 g/dL (1.3-4.6); Glomerular Filtration Rate 140.4 mL/min (90-130); Glucose 112 mg/dL (65-115); Magnesium 1.9 mg/dL (1.7-2.3); Osmolality Calculated 278 mOsm/kg (285-295); Phosphorus 1.7 mg/dL (2.5-4.5); Potassium 3.6 mmol/L (3.5-5.1); Sodium 134 mmol/L (136-145); Total Bilirubin 0.4 mg/dL (0.15-1.2); Total Protein 5.1 g/dL (6.6-8.7)
[2021-04-14 23:01] LABS: Ferritin 689 ng/mL (30-400)
--- NOTE | 2021-04-14 23:30 | PC.PHAR ---
Vancomycin trough before fourth dose of 1500mg IVPB every 12 hours is 34.7. Hold Vancomycin for 24 hours and reduce dosage to 1gm IVPB every 24 hours with another trough to be obtained before the fourth 1gm dose.
[2021-04-15] VITALS (8 sets, daily range): BP systolic 93–110; BP diastolic 51–68; PULSE 67–86; RESP 16–22; TEMP 36.8–38.3; O2SAT 89–95
[2021-04-15 03:07] LABS: Quest SARS-CoV-2 RNA DETECTED (NOT DETECTED)
[2021-04-15] MEDS: heparin 5,000 unit/mL INJ 1 mL 5000 UNIT SUBCUT ×3 (05:17→20:19)
[2021-04-15] MEDS: pantoprazole 40 mg SDV IVP (05:27)
[2021-04-15 06:31] LABS: Lactate (Lactic Acid level) 0.8 mmol/L (0.5-2.2)
[2021-04-15 06:39] LABS: Ferritin 649 ng/mL (30-400); NT Pro B Type Natriuretic Pept 2483 pg/mL (0-125)
[2021-04-15 06:45] LABS: C Reactive Protein 149.6 mg/L (0.0-4.9); Magnesium 1.8 mg/dL (1.7-2.3); Phosphorus 1.7 mg/dL (2.5-4.5)
[2021-04-15 07:22] LABS: D Dimer 0.82 ug/mIFEU (0-0.59)
[2021-04-15] MEDS: budesonide 0.5 mg/2 mL Neb 0.25 MG INHALATION ×2 (09:15→22:21)
[2021-04-15] MEDS: ipratropium-albuterol 3 mL Neb INHALATION ×2 (09:15→22:21)
--- NOTE | 2021-04-15 09:52 | PC.CHAP ---
Pastoral Care Encounter/Spiritual Assessment Type of Contact [] Declined committee member visit [] Patient/Family/Request visit [] Outpatient visit [] Follow-up visit [] Physician referral [] Code/Alert [x] Routine visit [] Staff referral [] Actively dying [] Patient sleeping [] Family support [] [] Out of room [] Palliative care [] [] Receiving care in room [] Pre-surgical visit [] Trauma [] Long length of stay [] ICU visit [x] Other: covid Relational/Emotional Strength [] Patient feels connected with others/family/visitors/staff [] Distress [] Loneliness/isolation [] Abandonment Spirituality of Patient [] Person of Jia [] Attends Mandaen of their Jia [] Believes in Prayer [] Reads Bible or Restoration materials [] There are Spiritual issues to be addressed Docket Clerk Interventions [x] Prayer [] Active listening [] Non-anxious presence [] Spiritual/emotional support [] Crisis/trauma care [] Spiritual counseling [] Bereavement support [] Provided bereavement packet [] Provided Bible/devotional materials [] Provided toy/stuffed animal, coloring book to patient or family member [] Provided Communion [] Anointing/Ronda [] Salvation [x] Completed spiritual assessment [] Other: Impact on Illness or Injury [] Angry [] Fearful [] Anxious [] Often cries [] Exhaustion [] Unable to work [] Unable to attend latter day [] Unable to walk/stand [] Unable to read [] Unable to drive [] Unable to eat/drink [] Unable to sleep [] Unable to be with family [] Patient intubated [] Other: Summary Time spent with patient
[2021-04-15] MEDS: ascorbic acid 500 mg Tablet PO ×2 (10:18→18:17)
[2021-04-15] MEDS: cholecalciferol (vitamin D3) 1,000 unit Tablet 1000 UNIT PO (10:18)
[2021-04-15] MEDS: midodrine 5 mg TABLET 10 MG PO ×3 (10:18→20:19)
[2021-04-15] MEDS: zinc gluconate 50 mg Tablet PO (10:18)
--- NOTE | 2021-04-15 11:04 | CTR_ITS ---
PROCEDURE INFORMATION: Exam: CTA Chest With Contrast Exam date and time: 04/15/2021 11:04 AM Age: 55 years old Clinical indication: Fever; Patient HX: Covid, unable to obtain history; Additional info: Covidpositive, hypoxia TECHNIQUE: Imaging protocol: Computed tomographic angiography of the chest with contrast. 3D rendering (Not supervised by radiologist): MIP and/or 3D reconstructed images were created by the technologist. Radiation optimization: All CT scans at this facility use at least one of these dose optimization techniques: automated exposure control; mA and/or kV adjustment per patient size (includes targeted exams where dose is matched to clinical indication); or iterative reconstruction. Contrast material: OMNI 350; Contrast volume: 89 ml; Contrast route: INTRAVENOUS (IV); COMPARISON: CR (CHEST, ) 04/12/2021 8:07 PM Written report CTA head/neck 12/21/2015. RADIATION DOSE METRICS: Total DLP (mGy-cm): 590.34 FINDINGS: Pulmonary arteries: No pulmonary artery embolism identified. Aorta: No aortic aneurysm. No aortic dissection. Thyroid: Left thyroid 7.4 x 5.7 x 5.5 cm mass (previously 5.1 x 5.1 x 3.1 cm per prior written report). Lungs: Dense consolidation left pulmonary apex and posterior segment left upper lobe. Left posterior pulmonary partial passive atelectasis. Pleural spaces: Small left pleural effusion. Minimal right pleural effusion. No pneumothorax. Heart: Normal. No pericardial effusion. Lymph nodes: No enlarged lymph nodes. Bones/joints: Diffuse osteopenia. Nonspecific 9.5 mm right T9 vertebral body sclerotic focus. Soft tissues: Unremarkable. CT/CT angio chest PE protcl [id number] IMPRESSION: 1. No pulmonary artery embolism identified. 2. Dense consolidation left pulmonary apex and posterior segment left upper lobe. Pneumonitis is difficult to exclude. Clinical correlation is recommended. 3. No features specifically suggestive of viral pneumonitis. 4. Nonspecific T9 vertebral body sclerotic focus. Comparison with prior studies recommended, if available. Otherwise followup may be helpful. 5. Small left pleural effusion. 6. Minimal right pleural effusion. 7. Left thyroid mass, interval enlargement for concerning for neoplasia. COMMENTS: Consistent with the [employer]'s Incidental Findings Committee white paper (J Am Leticia Radiol 2015): In patients aged 35 years and older with an incidental thyroid nodule equal to or greater than 1.[address], MRI or extrathyroidal US, further evaluation with dedicated thyroid US is recommended for patients with normal life expectancy and without comorbidities. For smaller nodules without suspicious features, no further evaluation or follow up is recommended. Radiation Dose CTDIVOL = (mGy): DLP = 590.34 (mGy-cm)
--- NOTE | 2021-04-15 13:00 | PM.PN ---
Subjective Subjective: Interval history: This morning patient was examined, his is at bedside, he is more vocal, but does not follow commands, using a Filipino groundwater monitoring technician was able to speak to his , patient is was allowed to stay with her , this was approved to the powerhouse laborer, I advised the that she does have an increased risk of dewayne COVID-19, and must accept the morbidity and mortality and the risk of dewayne COVID-19 while in the room, she was advised the risk benefits, she voiced understanding, all questions answered, however she wants to remain in the room with her Currently patient has gram-negative rods growing in his urine, remains febrile, currently on antibiotic therapy, Patient is on 3 L, I am a bit hesitant to start him on COVID-19 treatment, given the risk of immunosuppression given the severity of his UTI, will do a CT of the chest, to see if there is any radiographic evidence of COVID-19, Patient's blood pressures are soft, however lactic acids are within normal limits, thus given his decreased size, I think he runs low blood pressures chronically Vitals/I&O/Wt Last Vital Signs Temp 100.1 F H 04/15/21 12:00 Pulse 75 04/15/21 12:00 Resp 20 H 04/15/21 12:00 BP 106/60 04/15/21 12:00 Pulse Ox 92 04/15/21 12:00 04/14/21 04/15/21 04/15/21 22:59 06:59 14:59 Intake Total 720 / 2170 100 / 2270 220 / 220 Output Total 1100 / 1100 Balance -380 / 1070 100 / 1170 220 / 220 Physical Exam Const: COMMON NORMALS: no acute distress ORIENTATION/CONSCIOUSNESS: Yes awake; not oriented to person, not oriented to place and not oriented to time Resp: COMMON NORMALS: normal respiratory effort, No retractions, No use of accessory muscles and clear to auscultation bilaterally AUSCULTATION: clear to auscultation bilaterally Cardio: COMMON NORMALS: regular rate, regular rhythm, S1 normal heart sound present and S2 normal heart sound present RATE: regular rate RHYTHM: regular rhythm HEART SOUNDS: S1 normal heart sound present and S2 normal heart sound present GI: COMMON NORMALS: Normal to inspection, nondistended, normoactive bowel sounds present, Soft to palpation and non-tender AUSCULTATION: Yes normoactive bowel sounds PALPATION: Yes Soft to palpation : COMMON NORMALS: Yes no CVA tenderness BLADDER/KIDNEY EXAM: Yes no CVA tenderness Back/Pelvis: COMMON NORMALS: no CVA tenderness Extremity: COMMON NORMALS: no pedal edema Neuro: SENSORIUM/ORIENTATION: No oriented to person, No oriented to place and No oriented to time Urinary Catheter Management^: Suprapubic: Cath Placed During This Visit: yes Reason for Continuing Indwelling Catheter: Chronic Indwelling Urinary Catheter on Admission Urinary Catheter Date of Insertion: 04/07/21 Data : 04/14/21 22:00 04/14/21 22:00 Micro: Microbiology 04/13/21 14:20 Urine Culture - Final Urine Suprapubic 04/12/21 21:55 Urine Culture - Preliminary Urine,Clean Catch Gram Negative Rods Gram Negative Rods#2 A&P Assessment and plan (1) Sepsis due to urinary tract infection: -Secondary to urinary tract infection, and COVID-19 infection -Has a history of suprapubic catheter -Catheter was recently changed -CT scan of abdomen pelvis does show bilateral nephrolithiasis, no obstructive uropathy, no significant hydronephrosis -Procalcitonin 18.4, CRP 149 -BNP 243 -Febrile overnight, tachycardic has resolved, soft blood pressures, good urine output Plan: -Currently in Covid unit -His blood pressures tend to run soft, lactic acid is within normal limits -Currently on midodrine 10 mg 3 times daily -Continue Primaxin, vancomycin has been stopped, Vanco trough high at 34 -Urine culture showing 2 different species of gram-negative rods follow-up identification -Follow blood cultures, urine cultures, sputum cultures -For COVID-19 infection, is on 3 L, is not tachypneic, some of it I suspect is fluid overload, however I think that the majority of his sepsis is from the urinary tract infection -Currently I feel that starting him on Decadron and remdesivir will increase the risk of his immunosuppression and increase the risk of severe urinary tract infection, so for now will hold off on remdesivir and Decadron for his COVID-19 infection. However if he has evidence of pneumonia radiographically or has worsening hypoxia or evidence of respiratory distress, will start Decadron remdesivir -We will do a CT angiogram of the chest -1 dose of Lasix with albumin -Vitamin C, zinc, vitamin D, albuterol, budesonide -Heparin for DVT prophylaxis -Currently on a dysphagia diet -Full code, I readdressed this with mother using a groundwater monitoring technician, she wants all measures done for her son Status: Acute (2) Acute UTI: Status: Acute (3) COVID-19: Status: Acute (4) Septic shock: Status: Acute (5) Chronic suprapubic catheter: Status: Acute (6) Hypoxia: Status: Acute Attestations Medical Necessity Statement*: Patient requires hospitalization for sepsis secondary to UTI, COVID-19 infection Coding Level of Care Code Acute Iron Worker Apprentice for [facility] Fwd Diagnoses Sepsis due to urinary tract infection A41.9; N39.0 Acute UTI N39.0 COVID-19 U07.1 Septic shock A41.9; R65.21 Chronic suprapubic catheter Z93.59 Hypoxia R09.02
[2021-04-15] MEDS: FUROsemide 10 mg/mL SDV 4mL 40 MG IVP (14:34)
--- NOTE | 2021-04-15 17:44 | PC.RESP ---
RT Shift Note Frequent safety and respiratory rounds continue. Orders completed as indicated. Patient monitored pre and post treatments throughout shift. Patient tolerated treatments appropriately. Condition did not change. Patient and/or patient representative educated on respiratory treatment and medications. Patient and/or patient representative verbalized understanding. Will continue to monitor patient progress.
[2021-04-16] VITALS (8 sets, daily range): BP systolic 95–103; BP diastolic 48–61; PULSE 51–70; RESP 16–22; TEMP 36.3–37; O2SAT 90–96
[2021-04-16] MEDS: heparin 5,000 unit/mL INJ 1 mL 5000 UNIT SUBCUT ×3 (05:03→21:21)
[2021-04-16] MEDS: pantoprazole 40 mg SDV IVP (05:16)
[2021-04-16 07:15] LABS: Basophils % 0.2 %; Eosinophils % 0.2 %; Hematocrit 33.3 % (42.0-52.0); Hemoglobin 10.4 g/dL (11.7-16.6); Lymphocytes # 1.4 10^3/uL (0.8-4.8); Mean Corpuscular HGB Conc 31.2 g/dL (30.0-36.0); Mean Corpuscular Hemoglobin 28.2 pg (28.0-34.0); Mean Corpuscular Volume 90.2 fL (80-94); Mean Platelet Volume 11.6 fL (7.4-10.4); Monocytes # 0.5 10^3/uL (0.2-0.9); Monocytes % 9.5 %; Neutrophils # 3.51 10^3/uL (1.8-7.7); Neutrophils % 64.4 %; Nucleated Red Blood Cells % 0 %; Platelet Count 117 10^3/cmm (130-400); Red Blood Count 3.69 10^6/uL (4.1-5.3); Red Cell Distribution Width 14.5 % (12.1-15.1); White Blood Count 5.5 10^3/uL (4.0-10.0)
[2021-04-16 07:31] LABS: Lactate (Lactic Acid level) 0.8 mmol/L (0.5-2.2)
[2021-04-16 07:57] LABS: Alanine Aminotransferase 10 U/L (0-41); Alkaline Phosphatase 47 IU/L (40-130); Aspartate Amino Transferase 15 U/L (0-40); Blood Urea Nitrogen 13 mg/dL (6-20); C Reactive Protein 105.9 mg/L (0.0-4.9); Carbon Dioxide 24 mmol/L (22-29); Chloride 106 mmol/L (98-107); Globulin 2.5 g/dL (1.3-4.6); Glomerular Filtration Rate 173.3 mL/min (90-130); Glucose 125 mg/dL (65-115); Magnesium 2.1 mg/dL (1.7-2.3); NT Pro B Type Natriuretic Pept 5718 pg/mL (0-125); Osmolality Calculated 290 mOsm/kg (285-295); Phosphorus 2.5 mg/dL (2.5-4.5); Sodium 139 mmol/L (136-145); Total Bilirubin 0.6 mg/dL (0.15-1.2); Total Protein 5.5 g/dL (6.6-8.7)
[2021-04-16 07:58] LABS: NT Pro B Type Natriuretic Pept 5492 pg/mL (0-125); Procalcitonin 7.42 ng/mL (0-0.5)
[2021-04-16 08:09] LABS: Ferritin 624 ng/mL (30-400)
[2021-04-16 08:13] LABS: Slide Review Slide Review Perform
[2021-04-16] MEDS: zinc gluconate 50 mg Tablet PO (09:02)
[2021-04-16] MEDS: ascorbic acid 500 mg Tablet PO ×2 (09:02→18:07)
[2021-04-16] MEDS: cholecalciferol (vitamin D3) 1,000 unit Tablet 1000 UNIT PO (09:02)
[2021-04-16] MEDS: midodrine 5 mg TABLET 10 MG PO ×3 (09:02→21:20)
[2021-04-16] MEDS: ipratropium-albuterol 3 mL Neb INHALATION (09:45)
[2021-04-16] MEDS: budesonide 0.5 mg/2 mL Neb 0.25 MG INHALATION ×2 (09:45→22:27)
--- NOTE | 2021-04-16 16:35 | P.PN_ITS ---
Subjective Subjective: Interval history: Stable overnight. Medications: Reviewed: Yes Vitals/I&O/Wt Last Vital Signs Temp 98.1 F 04/16/21 16:00 Pulse 53 L 04/16/21 16:00 Resp 17 04/16/21 16:00 BP 99/57 04/16/21 16:00 Pulse Ox 94 04/16/21 16:00 04/16/21 04/16/21 04/16/21 06:59 14:59 22:59 Intake Total 200 / 1409.0909 460 / 460 Output Total 600 / 900 Balance -400 / 509.0909 460 / 460 Physical Exam Narrative: EXAM NARRATIVE: Chronically ill-appearing HEENT -grossly unremarkable Chest-nonlabored respiration CVS/sinus tachycardia abdomen-suprapubic cath Extremities-no edema Urinary Catheter Management^: Suprapubic: Cath Placed During This Visit: yes Reason for Continuing Indwelling Catheter: Other Urinary Catheter Date of Insertion: 04/07/21 Data : 04/16/21 06:10 04/16/21 06:10 Micro: Microbiology 04/12/21 20:20 Blood Culture - Preliminary Blood 04/12/21 21:55 Urine Culture - Final Urine,Clean Catch Escherichia coli Proteus mirabilis A&P Assessment and plan (1) Sepsis due to urinary tract infection: -Secondary to urinary tract infection, and COVID-19 infection -Has a history of suprapubic catheter -Catheter was recently changed -CT scan of abdomen pelvis does show bilateral nephrolithiasis, no obstructive uropathy, no significant hydronephrosis -Procalcitonin 18.4, CRP 149 -BNP 243 -Febrile overnight, tachycardic has resolved, soft blood pressures, good urine output -CTA chest -04/15/2021 No evidence of pulmonary embolism however noted to have dense consolidation of left pulmonary apex and posterior segment left upper lobe. Incidentally was also noted to have a left thyroid mass which appeared to have interval enlargement. Plan: -Currently in Covid unit -His blood pressures tend to run soft, lactic acid is within normal limits -Currently on midodrine 10 mg 3 times daily -Continue Primaxin, vancomycin has been stopped, Vanco trough high at 34 -Urine culture showing 2 different species of gram-negative rods follow-up identification -Follow blood cultures, urine cultures, sputum cultures -For COVID-19 infection, is on 3 L, is not tachypneic, some of it I suspect is fluid overload, however I think that the majority of his sepsis is from the urin licha tract infection Status: Acute (2) Acute UTI: Status: Acute (3) COVID-19: Status: Acute (4) Septic shock: Status: Acute (5) Chronic suprapubic catheter: Status: Acute (6) Hypoxia: Status: Acute Attestations Medical Necessity Statement*: will require further hospitalization for management of sepsis, UTI and COVID-19 pneumonia Time Spent in Patient Care: Greater than 35 minutes (>than 50% of time spen t in counselling and/or direct pt care on unit) . Coding Level of Care Code Acute Underwriting Service Representative for [facility] Fwd Diagnoses Sepsis due to urinary tract infection A41.9; N39.0 Acute UTI N39.0 COVID-19 U07.1 Septic shock A41.9; R65.21 Chronic suprapubic catheter Z93.59 Hypoxia R09.02
--- NOTE | 2021-04-16 18:34 | PC.NURSE ---
Shift Note still at bedside doing complete care for patient. Frequent safety and comfort rounds continue. Orders and/or nursing care completed as indicated. Patient monitored for response to intervention and treatment(s). Education provided includes calling if need anything. Patient and/or market survey representative thanked caregiver. Will continue to monitor.
[2021-04-17] VITALS (7 sets, daily range): BP systolic 94–118; BP diastolic 51–58; PULSE 51–82; RESP 18–24; TEMP 36.7–36.8; O2SAT 90–97
--- NOTE | 2021-04-17 04:39 | PC.NURSE ---
Shift Note Frequent safety and comfort rounds continue. Orders and/or nursing care completed as indicated. Patient monitored for response to intervention and treatments. Patient's stayed all night with patient and was very attentive to patient. Patient slept most of the night, pt was bradycardic during the night with pulse ranging from 55-60 bpm, BP were soft 90's/50's and 100s/50s, pt was afebrile, adequate urine output for the shift >500 mls. Urine was light colin in color. Patient's requested to give patient his medication, nurse prepared meds and observed administer them. Education provided on frequent position changes, current medications, and keeping HOB elevated to prevent aspiration. Nurse also educated Pt's about thickened liquids and nurse removed thin liquids from the bedside only to find them replaced later. Pt's said he doesnt like the thickened liquids. Haitian is not their first language, an political researcher may be helpful to better explain the risk of aspiration with thin liquids. Will continue to monitor.
[2021-04-17] MEDS: heparin 5,000 unit/mL INJ 1 mL 5000 UNIT SUBCUT (05:46)
[2021-04-17] MEDS: pantoprazole 40 mg SDV IVP (05:58)
[2021-04-17] MEDS: midodrine 5 mg TABLET 10 MG PO ×2 (08:39→15:26)
[2021-04-17] MEDS: cholecalciferol (vitamin D3) 1,000 unit Tablet 1000 UNIT PO (08:39)
[2021-04-17] MEDS: zinc gluconate 50 mg Tablet PO (08:39)
[2021-04-17] MEDS: ascorbic acid 500 mg Tablet PO (08:39)
[2021-04-17] MEDS: budesonide 0.5 mg/2 mL Neb 0.25 MG INHALATION (10:17)
[2021-04-17] MEDS: ipratropium-albuterol 3 mL Neb INHALATION (10:17)
--- NOTE | 2021-04-17 11:10 | PC.CHAP ---
Pastoral Care Encounter/Spiritual Assessment Type of Contact [] Declined furnace operator and tender visit [] Patient/Family/Request visit [] Outpatient visit [] Follow-up visit [] Physician referral [] Code/Alert [x] Routine visit [] Staff referral [] Actively dying [] Patient sleeping [x] Family support [] [] Out of room [] Palliative care [] [x] Receiving care in room [] Pre-surgical visit [] Trauma [] Long length of stay [] ICU visit [x] Other: 2A... present/[place] Relational/Emotional Strength [] Patient feels connected with others/family/visitors/staff [] Distress [] Loneliness/isolation [] Abandonment Spirituality of Patient [] Person of Jia [] Attends Amish of their Jia [] Believes in Prayer [] Reads Bible or Gnosticist materials [] There are Spiritual issues to be addressed Advisor To Command In Combat Interventions [x] Prayer [] Active listening [] Non-anxious presence [] Spiritual/emotional support [] Crisis/trauma care [] Spiritual counseling [] Bereavement support [] Provided bereavement packet [] Provided Bible/devotional materials [] Provided toy/stuffed animal, coloring book to patient or family member [] Provided Communion [] Anointing/Empire [] Salvation [x] Completed spiritual assessment [] Other: Impact on Illness or Injury [] Angry [] Fearful [] Anxious [] Often cries [] Exhaustion [] Unable to work [] Unable to attend jewish [] Unable to walk/stand [] Unable to read [] Unable to drive [] Unable to eat/drink [] Unable to sleep [] Unable to be with family [] Patient intubated [] Other: Summary Time spent with patient
--- NOTE | 2021-04-17 16:26 | PC.NURSE ---
Discharge Note Patient discharged to HOME via [facility] transport, accompanied by his and transport staff. Discharge instructions reviewed with patient and/or assistance representative. Mobile pharmacy medications and/or prescriptions provided. Belongings/home medications returned. Both IV's removed from patients wrists and insisted on getting him dressed.
--- NOTE | 2021-04-17 20:50 | P.DS_ITS ---
Discharge Providers Date of Admission: 04/13/21 06:03 Date of Discharge: April 17, 2021 Attending Provider at Admission: Nicki Yu MD Attending Provider at Discharge: Elicia Alvarez Primary Care Provider: Gaby Martines MD Diagnoses at Discharge Discharge Diagnosis (1) Sepsis due to urinary tract infection: Status: Acute (2) Acute UTI: Status: Acute (3) COVID-19: Status: Acute (4) Septic shock: Status: Resolved (5) Chronic suprapubic catheter: Status: Acute (6) Hypoxia: Status: Resolved Reason for Visit Reason for Visit: FEVER Hospital Course Hospital Course 55-year-old male with past medical history significant forSevere debility due to multiple sclerosis, leading to neurogenic bladder and chronic suprapubic catheter who presented to the hospital with fevers.Upon arrival to emergency room patients laboratory workup showed a WBC of 7.2, hemoglobin of 13.8, hematocrit of 43.5 and a platelet count of 303.Sodium 131, potassium 4.5, chloride 97, bicarb 25, BUN 11 and creatinine of 0.3. Lactic acid is 0.9. procalcitonin of 0.24.Patient was found to have COVID-19 positive.Imaging studies included chest x-ray which did not show any focal consolidation.CT abdomen pelvis showed bilateral renal pelvis stones and percutaneous suprapubic bladder catheter.While in emergency room patient was noted to have a fever of 104.0. Addition was noted to have sinus tachycardia with heart rated 141 and tachypnea. Patient was started on vancomycin 2g IV x 1 and Zosyn 4.5 g x 1. He was also given multiple doses of IVF. Of note patient was recently seen by Dr. Reece during which time parker catheter was changed. Upon admission to the hospital patient was continued on broad-spectrum antibiotics. Noted to have intermittent episodes of fever. As well as needed have soft blood pressures. Was started on midodrine 10 mg oral t.i.d.. Urine cultures had yielded multiple organisms. Patient was suspected to have a component of aspiration pneumonia. He was seen by speech therapy. Started on mechanical soft with thickened liquid diet. Family was counseled on dysphagia diet. Antibiotics were transitioned to oral Augmentin and patient was discharged in stable condition.Patient was high risk for readmission however. Advised to return if any recurrence of fever episodes. Physical Exam Narrative: EXAM NARRATIVE: Chronically ill-appearing HEENT -grossly unremarkable Chest-nonlabored respiration CVS/sinus tachycardia abdomen-suprapubic cath Extremities-no edema Urinary Catheter Management^: Suprapubic: Cath Placed During This Visit: yes Reason for Continuing Indwelling Catheter: Other Urinary Catheter Date of Insertion: 04/07/21 Discharge Data Data Completed and Pending: Completed Studies During Hospitalization Category Date Time Status CT abdomen pelvis w con* [id number] Urge nt Cat Scan 04/12/21 22:[address] angio chest PE protcl [id number] Rout ine Cat Scan 04/15/21 11:04 Completed XR chest 1V curtis ble [id number] Stat Exams 04/12/21 19:58 Completed Vitals: Last Vital Signs Temp 98.1 F 04/17/21 16:25 Pulse 82 04/17/21 16:25 Resp 18 04/17/21 16:25 BP 111/55 04/17/21 16:25 Pulse Ox 90 04/17/21 16:25 Discharge Plan Discharge Patient Disposition: Home Condition: Stable Prescriptions: New zinc gluconate 50 mg Tablet 50 mg PO DAILY Qty: 30 RF: 0 Augmentin 875-125 mg tablet 1 tab PO BID Qty: 7 RF: 0 midodrine 5 mg Tablet 10 mg PO TID Qty: 90 RF: 0 Continued omega-3 fatty acids 1,000 mg capsule 1,000 mg PO DAILY RF: 0 Laxative (bisacodyl) 5 mg tablet 5 mg PO DAILY RF: 0 hydrocortisone acetate 1 % cream See Rx Instructions .ROUTE .COMPLEX PRN (Reason: UNKNOWN) RF: 0 triamcinolone acetonide 0.025 % cream 1 applic TOPICAL BID RF: 0 Discharge Orders: Discharge Order (Routine); Ordered 04/17/21 Ordered By: Elicia Alvarez Referrals: Gaby Martines MD [Primary Care Provider] - (Call if need anything or a check up. ) Discharge Diet: As Directed Discharge Activity: Resume usual activity Patient Instructions: Cefdinir (By mouth), Dysphagia, Urinary Tract Infection in Men (ED), How to Care for Your Suprapubic Catheter (ED), Aspiration Pneumonia (DC), Opioid Safety Activity Restrictions/Additional Instructions: Thank you for visiting the emergency department. You were seen and evaluated for fever and tachycardia. The exact cause of your symptoms is somewhat complicated. You were positive for COVID-19. This is a virus that can cause significant illness. Please ensure isolation as best as possible and continue to follow-up with your primary care provider. Additionally you were noted to have a urinary tract infection. You will be given a prescription for antibiotics. Please follow-up with your primary care provider. Please return to the emergency department if you experience worsening of your current symptoms, confusion, increased weakness, or anything else that you are concerned about and feel needs emergency department evaluation. Discharge Attestations Time Spent in Discharge Care*: greater than 30 min Specific Discharge Activities: educating patient, educating and/or supporting family/caregiver, discussing with pcp/other providers, discussing with case francisca gerlamin/social workers/dc planners, documenting/other paperwork and evaluating patient/reviewing data Status at Discharge: Cognitive status at discharge: moderately impaired cognition , Behavioral status at discharge: cooperative , Functional status at discharge: bed bound Overall status at discharge: patient is progressing back to baseline Quality Metrics Clinical Quality Measures During this hospital stay, did patient experience: None Coding Level of Care Code Acute [facility] note Diagnoses Sepsis due to urinary tract infection A41.9; N39.0 Acute UTI N39.0 COVID-19 U07.1 Septic shock A41.9; R65.21 Chronic suprapubic catheter Z93.59 Hypoxia R09.02
== END 2021-04-17 17:11 | disposition home or self-care (01) | DRG 871 ==
LOC: ER 04-13 02:06 → ER IP 04-13 07:40 → MS 2A 04-13 19:34
PROVIDERS: Family Medicine; Admitting Provider Internal Medicine; Emergency Provider Emergency Medicine; PCP Family Medicine; Visit Provider Hospitalist
DX: A41.89 Other specified sepsis (principal); U07.1 COVID-19; R65.21 Severe sepsis with septic shock; N39.0 Urinary tract infection, site not specified; G93.40 Encephalopathy, unspecified; G35 Multiple sclerosis; R00.0 Tachycardia, unspecified; R09.02 Hypoxemia; Z90.49 Acquired absence of other specified parts of digestive tract; Z93.59 Other cystostomy status; Z80.0 Family history of malignant neoplasm of digestive organs
CPT/HCPCS: 36415; 36600; 51702; 71045; 71275; 74177; 80053; 80202; 81001; 82728; 82803; 83605; 83735; 83880; 84100; 84145; 85025; 85378; 86140; 86403; 87040; 87077; 87086; 87186; 87205; 87426; 87635; 92523; 92610; 94640; 94664; 96365; 96366; 96367; 96372; 99285; C9113; J0743; J1644; J1940; J2543; J3370; J7040; J7626; P9047; Q9967

== ENCOUNTER 2021-05-25 11:10 | Inpatient (IN) | payer MEDICAID, SELFPAY ==
[2021-05-25] VITALS (44 sets, daily range): BP systolic 72–150; BP diastolic 46–94; PULSE 103–149; RESP 18–28; TEMP 36.3–40.4; O2SAT 95–100; BMI 23.6; BMI 22.7
--- NOTE | 2021-05-25 11:13 | W.ED.MALEGU ---
Documented by User: Migel Paz MD 05/26/21 06:28 HPI - Male Genitourinary General: Chief complaint: Urogenital-Male Stated complaint: NO URINARY OUTPUT X24 HOURS; DISTENDED ABD Time Seen by Provider: 05/25/21 11:12 History of Present Illness: HPI Narrative: Mr Mittal is a 55-year-old gentleman with complex past medical history including MS with marked debility who presents emerged department due to concern over urinary retention. He has a suprapubic catheter which was last changed approximately 3 weeks ago. Starting last night he had decreased urine output and his was unable to flush the catheter as typical which she normally does twice daily. Since that time he has had basically no urine output and has increased abdominal discomfort and distention. No associated fevers reported. No other significant changes in health reported. The intensity, quality, and associated symptoms are not obtained due to patient's nonverbal status. History is limited by language barrier and patient's baseline debility. Review of Systems General: Reports: ROS unobtainable due to medical condition PFS ED PFSH: Medical History (Updated 05/25/21 @ 20:45 by Sarthak Herr MD) Chronic constipation Multiple sclerosis History of Neurogenic bladder Urinary retention Surgical History Chronic suprapubic catheter Status post cholecystectomy Family History Other Pancreatic cancer Social History Smoking and tobacco status: never smoked Alcohol intake: never Caregiver/support person: Yes Marital status: Physical Exam Narrative: EXAM NARRATIVE: GENERAL/CONSTITUTIONAL -chronically ill-appearing. No acute distress. Nontoxic Eyes - PERRL, no conjunctival injection ENMT - Atraumatic external nose and ears. Moist mucous membranes NECK - supple. trachea midline CARDIOVASCULAR - regular rate and rhythm. Peripheral pulses 2+ and equal RESPIRATORY -clear to auscultation bilaterally. No retractions or accessory muscle use. ABDOMEN/GI - moderately tender. Appears mildly distended. No tenderness to percussion or evidence of peritonitis MSK - Extremities without obvious deformity or tenderness to palpation. Stage III ulceration with dressing on the left gluteal region SKIN - Warm, Dry NEURO - alert and at baseline Course ED course: - Patient was seen and evaluated by me at bedside - Patient placed on cardiac monitors, IV access obtained - Initial evaluation notable for findings as above, challenging exam due to baseline debility however patient appears similar to prior encounter with this patient. He is nontoxic and not in acute distress. - Although the patient typically gets his catheter changed by Dr. Cedeno unfortunately no urologist is interventional cardiologist at this time. 3 cc of fluid was aspirated from the catheter balloon catheter was removed, this was atraumatic. A new catheter was subsequently inserted without any difficulty and balloon inflated. There was initially urine output associated with this however after approximately 25 mL it stopped for unclear reason. Initial clinical suspicion was that the patient had urinary retention given abdominal findings. Bedside ultrasound did reveal visualization of the loop of lower bladder. As such CT was ordered. - Imaging notable for catheter in satisfactory position with decompressed bladder. - Shortly after CT results patient developed hypertension, tachycardia and was ill-appearing. Considerations at that time was for possible allergic reaction and this treatment was ordered however it was not given as we checked a temperature prior to giving these and he was febrile. As such infection felt to be a significantly more likely etiology. - Fluids and antibiotics given. There was some improvement with heart rate and fever. - Based on patient history, evaluation, labs, and imaging as interpreted the most likely cause of the patient's condition is sepsis from either urinary or wound source - The results of ED evaluation were discussed with the patient including plan for admission due to requirement for level of care not available if discharged to prevent significant worsening/deterioration. - Hospitalist service contacted and agreed to admit the patient. - Patient care handed off to Dr. Herr pending admission to the hospital Vital Signs: Vital signs: Vital Signs Temperature 100.7 F H 05/26/21 04:05 Pulse Rate 112 H 05/26/21 05:30 Respiratory Rate 18 05/25/21 21:58 Blood Pressure 91/47 05/26/21 05:30 Pulse Oximetry 96 05/26/21 05:30 MDM - Male Medical Records: Attestation: I reviewed the patient's medical records. Lab Data: Attestation: I reviewed the patient's lab results. Labs: Lab Results 05/25/21 05/25/21 05/25/21 Range/Units 11:30 11:30 11:30 WBC 12.0 H (4.0-10.0) 10^3/ uL RBC 4.22 (4.1-5.3) 10^6/u L Hgb 12.0 (11.7-16.6) g/dL Hct 38.5 L (42.0-52.0) % MCV 91.2 (80-94) fl MCH 28.4 (28.0-34.0) pg MCHC 31.2 (30.0-36.0) g/dL RDW 15.2 H (12.1-15.1) % Plt Count 225 (130-400) 10^3/c mm MPV 9.2 (7.4-10.4) fL Neut % (Auto) 79.4 % Lymph % (Auto) 11.9 % Gove % (Auto) 7.9 % Eos % (Auto) 0.1 % Baso % (Auto) 0.3 % Neut # (Auto) 9.51 H (1.8-7.7) 10^3/u L Lymph # (Auto) 1.4 (0.8-4.8) 10^3/u L Gove # (Auto) 0.9 (0.2-0.9) 10^3/u L Eos # (Auto) 0.0 (0.0-0.8) 10^3/u L Baso # (Auto) 0.0 (0.0-0.1) 10^3/u L Nucleated RBC % (a uto) 0 % Nucleated RBCs # 0.0 /100WBC Sodium 136 (136-145) mmol/L Potassium 4.1 (3.5-5.1) mmol/L Chloride 103 (98-107) mmol/L Carbon Dioxide 24 (22-29) mmol/L Anion Gap 13.1 (5-19) BUN 13 (6-20) mg/dL Creatinine 0.5 L (0.7-1.2) mg/dL GFR Calculation 173.3 H (90-130) mL/min Glucose 127 H (65-115) mg/dL Calculated Osmolal ity 284 L (285-295) mOsm/k g Lactate (0.5-2.2) mmol/L Calcium 8.3 L (8.5-10.5) mg/dL Troponin T Baselin e (0-15) ng/L Troponin T 120 [place] (0-15) ng/L Delta Troponin T (0-10) ABS# TSH 0.91 (0.27-4.20) uIU/ mL Urine Color (Yellow) Urine Appearance (CLEAR) Urine pH (5-7) Ur Specific Gravit y (1.005-1.030) Urine Protein (Negative) Urine Glucose (UA) (Normal) Urine Ketones (Negative) Urine Blood (Negative) Urine Nitrate (Negative) Urine Bilirubin (Negative) Prot Sulfosalicyli c Acd (Negative) Urine Urobilinogen (Negative) mg/dL Ur Leukocyte Mirtha ase (Negative) Urine RBC (0-2) /hpf Urine WBC (0-5) /hpf Ur Squamous Epith Cells (0-5) /hpf Triple Phos [place] /hpf Amorphous Sediment Urine Bacteria (NONE) /hpf 05/25/21 05/25/21 05/25/21 Range/Units 15:17 16:40 17:30 WBC (4.0-10.0) 10^3/ uL RBC (4.1-5.3) 10^6/u L Hgb (11.7-16.6) g/dL Hct (42.0-52.0) % MCV (80-94) fl MCH (28.0-34.0) pg MCHC (30.0-36.0) g/dL RDW (12.1-15.1) % Plt Count (130-400) 10^3/c mm MPV (7.4-10.4) fL Neut % (Auto) % Lymph % (Auto) % Gove % (Auto) % Eos % (Auto) % Baso % (Auto) % Neut # (Auto) (1.8-7.7) 10^3/u L Lymph # (Auto) (0.8-4.8) 10^3/u L Gove # (Auto) (0.2-0.9) 10^3/u L Eos # (Auto) (0.0-0.8) 10^3/u L Baso # (Auto) (0.0-0.1) 10^3/u L Nucleated RBC % (a uto) % Nucleated RBCs # /100WBC Sodium (136-145) mmol/L Potassium (3.5-5.1) mmol/L Chloride (98-107) mmol/L Carbon Dioxide (22-29) mmol/L Anion Gap (5-19) BUN (6-20) mg/dL Creatinine (0.7-1.2) mg/dL GFR Calculation (90-130) mL/min Glucose (65-115) mg/dL Calculated Osmolal ity (285-295) mOsm/k g Lactate (0.5-2.2) mmol/L Calcium (8.5-10.5) mg/dL Troponin T Baselin e 16 H (0-15) ng/L Troponin T 120 [place] 38.14 H (0-15) ng/L Delta Troponin T 22.14 H* (0-10) ABS# TSH (0.27-4.20) uIU/ mL Urine Color Yellow (Yellow) Urine Appearance Hazy A (CLEAR) Urine pH 9 H (5-7) Ur Specific Gravit y 1.010 (1.005-1.030) Urine Protein Trace (Negative) Urine Glucose (UA) Norm (Normal) Urine Ketones 1+ H (Negative) Urine Blood 3+ H (Negative) Urine Nitrate Positive H (Negative) Urine Bilirubin Neg (Negative) Prot Sulfosalicyli c Acd Positive (Negative) Urine Urobilinogen Norm (Negative) mg/dL Ur Leukocyte Mirtha ase 2+ H (Negative) Urine RBC >100 H (0-2) /hpf Urine WBC >100 H (0-5) /hpf Ur Squamous Epith Cells None (0-5) /hpf Triple Phos [place] 0-4 H /hpf Amorphous Sediment Not Reportable Urine Bacteria 2+ H (NONE) /hpf 05/25/21 Range/Units 17:50 WBC (4.0-10.0) 10^3/ uL RBC (4.1-5.3) 10^6/u L Hgb (11.7-16.6) g/dL Hct (42.0-52.0) % MCV (80-94) fl MCH (28.0-34.0) pg MCHC (30.0-36.0) g/dL RDW (12.1-15.1) % Plt Count (130-400) 10^3/c mm MPV (7.4-10.4) fL Neut % (Auto) % Lymph % (Auto) % [place]ove % (Auto) % Eos % (Auto) % Baso % (Auto) % Neut # (Auto) (1.8-7.7) 10^3/u L Lymph # (Auto) (0.8-4.8) 10^3/u L Gove # (Auto) (0.2-0.9) 10^3/u L Eos # (Auto) (0.0-0.8) 10^3/u L Baso # (Auto) (0.0-0.1) 10^3/u L Nucleated RBC % (a uto) % Nucleated RBCs # /100WBC Sodium (136-145) mmol/L Potassium (3.5-5.1) mmol/L Chloride (98-107) mmol/L Carbon Dioxide (22-29) mmol/L Anion Gap (5-19) BUN (6-20) mg/dL Creatinine (0.7-1.2) mg/dL GFR Calculation (90-130) mL/min Glucose (65-115) mg/dL Calculated Osmolal ity (285-295) mOsm/k g Lactate 2.2 (0.5-2.2) mmol/L Calcium (8.5-10.5) mg/dL Troponin T Baselin e (0-15) ng/L Troponin T 120 [place] (0-15) ng/L Delta Troponin T (0-10) ABS# TSH (0.27-4.20) uIU/ mL Urine Color (Yellow) Urine Appearance (CLEAR) Urine pH (5-7) Ur Specific Gravit y (1.005-1.030) Urine Protein (Negative) Urine Glucose (UA) (Normal) Urine Ketones (Negative) Urine Blood (Negative) Urine Nitrate (Negative) Urine Bilirubin (Negative) Prot Sulfosalicyli c Acd (Negative) Urine Urobilinogen (Negative) mg/dL Ur Leukocyte Mirtha ase (Negative) Urine RBC (0-2) /hpf Urine WBC (0-5) /hpf Ur Squamous Epith Cells (0-5) /hpf Triple Phos [place] /hpf Amorphous Sediment Urine Bacteria (NONE) /hpf EKG Data: EKG 1: Attestation: I personally reviewed and interpreted this EKG as follows: EKG Data: 05/25/21 EKG interpretation time: 16:07 Interpretation: Twelve-lead EKG shows a regular sinus rhythm at a rate of 143. WA interval 145, QRS duration 82, QTc 410. Normal axis. Interpretation: Sinus tachycardia. Discharge Plan Discharge Patient Disposition: Admitted As Inpatient Admit Provider: Alejo Cheng Clinical Impression: Septic shock Condition: Stable Coding Level of Care Code ED Lining Cutter for Chg Fwd Documented by User: Sarthak Herr MD 05/25/21 21:31 HPI - Male Genitourinary General: Chief complaint: Urogenital-Male Stated complaint: NO URINARY OUTPUT X24 HOURS; DISTENDED ABD Time Seen by Provider: 05/25/21 11:12 PFSH ED PFSH: Medical History (Updated 05/25/21 @ 20:45 by Sarthak Herr MD) Chronic constipation Multiple sclerosis History of Neurogenic bladder Urinary retention Surgical History Chronic suprapubic catheter Status post cholecystectomy Family History Other Pancreatic cancer Social History Smoking and tobacco status: never smoked Alcohol intake: never Caregiver/support person: Yes Marital status: Procedures Central Line Placement Right IJ: Time Out Performed: Yes Patient Placed on Monitor/Pulse Ox: Yes MD Prep: mask, gown and gloves Central Line Prep: Chlorhexidine scrub Local Anesthetic: lidocaine 1% Amount of anesthesia used (mL): 3 Ultrasound Used for Placement: Yes Post Procedure: sutured in place, good blood return, all ports aspirated, flushed, capped and sterile dressing applied Post Procedure X-Ray: tip of catheter in good position and no pneumothorax seen Patient Tolerated Procedure: well Complications: catheter malposition Additional Comments: I did reposition the catheter and its in good placement now. Course Vital Signs: Vital signs: Vital Signs Temperature 100.7 F H 05/26/21 04:05 Pulse Rate 112 H 05/26/21 05:30 Respiratory Rate 18 05/25/21 21:58 Blood Pressure 91/47 05/26/21 05:30 Pulse Oximetry 96 05/26/21 05:30 MDM - Male MDM Narrative: Medical decision making narrative: Patient presents here with septic shock likely from urinary tract infection. Patient's blood pressure trended down I took patient over from Dr. Paz his blood pressures in the 80s. I did give him a liter bolus with no response I placed a central line start him on Levophed. We will admit him to the ICU. Lab Data: Labs: Lab Results 05/25/21 05/25/21 05/25/21 Range/Units 11:30 11:30 11:30 WBC 12.0 H (4.0-10.0) 10^3/ uL RBC 4.22 (4.1-5.3) 10^6/u L Hgb 12.0 (11.7-16.6) g/dL Hct 38.5 L (42.0-52.0) % MCV 91.2 (80-94) fl MCH 28.4 (28.0-34.0) pg MCHC 31.2 (30.0-36.0) g/dL RDW 15.2 H (12.1-15.1) % Plt Count 225 (130-400) 10^3/c mm MPV 9.2 (7.4-10.4) fL Neut % (Auto) 79.4 % Lymph % (Auto) 11.9 % Gove % (Auto) 7.9 % Eos % (Auto) 0.1 % Baso % (Auto) 0.3 % Neut # (Auto) 9.51 H (1.8-7.7) 10^3/u L Lymph # (Auto) 1.4 (0.8-4.8) 10^3/u L Gove # (Auto) 0.9 (0.2-0.9) 10^3/u L Eos # (Auto) 0.0 (0.0-0.8) 10^3/u L Baso # (Auto) 0.0 (0.0-0.1) 10^3/u L Nucleated RBC % (a uto) 0 % Nucleated RBCs # 0.0 /100WBC Sodium 136 (136-145) mmol/L Potassium 4.1 (3.5-5.1) mmol/L Chloride 103 (98-107) mmol/L Carbon Dioxide 24 (22-29) mmol/L Anion Gap 13.1 (5-19) BUN 13 (6-20) mg/dL Creatinine 0.5 L (0.7-1.2) mg/dL GFR Calculation 173.3 H (90-130) mL/min Glucose 127 H (65-115) mg/dL Calculated Osmolal ity 284 L (285-295) mOsm/k g Lactate (0.5-2.2) mmol/L Calcium 8.3 L (8.5-10.5) mg/dL Troponin T Baselin e (0-15) ng/L Troponin T 120 [place] (0-15) ng/L Delta Troponin T (0-10) ABS# TSH 0.91 (0.27-4.20) uIU/ mL Urine Color (Yellow) Urine Appearance (CLEAR) Urine pH (5-7) Ur Specific Gravit y (1.005-1.030) Urine Protein (Negative) Urine Glucose (UA) (Normal) Urine Ketones (Negative) Urine Blood (Negative) Urine Nitrate (Negative) Urine Bilirubin (Negative) Prot Sulfosalicyli c Acd (Negative) Urine Urobilinogen (Negative) mg/dL Ur Leukocyte Mirtha ase (Negative) Urine RBC (0-2) /hpf Urine WBC (0-5) /hpf Ur Squamous Epith Cells (0-5) /hpf Triple Phos [place] /hpf Amorphous Sediment Urine Bacteria (NONE) /hpf 05/25/21 05/25/21 05/25/21 Range/Units 15:17 16:40 17:30 WBC (4.0-10.0) 10^3/ uL RBC (4.1-5.3) 10^6/u L Hgb (11.7-16.6) g/dL Hct (42.0-52.0) % MCV (80-94) fl MCH (28.0-34.0) pg MCHC (30.0-36.0) g/dL RDW (12.1-15.1) % Plt Count (130-400) 10^3/c mm MPV (7.4-10.4) fL Neut % (Auto) % Lymph % (Auto) % [place] % (Auto) % Eos % (Auto) % Baso % (Auto) % Neut # (Auto) (1.8-7.7) 10^3/u L Lymph # (Auto) (0.8-4.8) 10^3/u L [place]ove # (Auto) (0.2-0.9) 10^3/u L Eos # (Auto) (0.0-0.8) 10^3/u L Baso # (Auto) (0.0-0.1) 10^3/u L Nucleated RBC % (a uto) % Nucleated RBCs # /100WBC Sodium (136-145) mmol/L Potassium (3.5-5.1) mmol/L Chloride (98-107) mmol/L Carbon Dioxide (22-29) mmol/L Anion Gap (5-19) BUN (6-20) mg/dL Creatinine (0.7-1.2) mg/dL GFR Calculation (90-130) mL/min Glucose (65-115) mg/dL Calculated Osmolal ity (285-295) mOsm/k g Lactate (0.5-2.2) mmol/L Calcium (8.5-10.5) mg/dL Troponin T Baselin e 16 H (0-15) ng/L Troponin T 120 [place] 38.14 H (0-15) ng/L Delta Troponin T 22.14 H* (0-10) ABS# TSH (0.27-4.20) uIU/ mL Urine Color Yellow (Yellow) Urine Appearance Hazy A (CLEAR) Urine pH 9 H (5-7) Ur Specific Gravit y 1.010 (1.005-1.030) Urine Protein Trace (Negative) Urine Glucose (UA) Norm (Normal) Urine Ketones 1+ H (Negative) Urine Blood 3+ H (Negative) Urine Nitrate Positive H (Negative) Urine Bilirubin Neg (Negative) Prot Sulfosalicyli c Acd Positive (Negative) Urine Urobilinogen Norm (Negative) mg/dL Ur Leukocyte Mirtha ase 2+ H (Negative) Urine RBC >100 H (0-2) /hpf Urine WBC >100 H (0-5) /hpf Ur Squamous Epith Cells None (0-5) /hpf Triple Phos [place] 0-4 H /hpf Amorphous Sediment Not Reportable Urine Bacteria 2+ H (NONE) /hpf 05/25/21 Range/Units 17:50 WBC (4.0-10.0) 10^3/ uL RBC (4.1-5.3) 10^6/u L Hgb (11.7-16.6) g/dL Hct (42.0-52.0) % MCV (80-94) fl MCH (28.0-34.0) pg MCHC (30.0-36.0) g/dL RDW (12.1-15.1) % Plt Count (130-400) 10^3/c mm MPV (7.4-10.4) fL Neut % (Auto) % Lymph % (Auto) % [place] % (Auto) % Eos % (Auto) % Baso % (Auto) % Neut # (Auto) (1.8-7.7) 10^3/u L Lymph # (Auto) (0.8-4.8) 10^3/u L [place] # (Auto) (0.2-0.9) 10^3/u L Eos # (Auto) (0.0-0.8) 10^3/u L Baso # (Auto) (0.0-0.1) 10^3/u L Nucleated RBC % (a uto) % Nucleated RBCs # /100WBC Sodium (136-145) mmol/L Potassium (3.5-5.1) mmol/L Chloride (98-107) mmol/L Carbon Dioxide (22-29) mmol/L Anion Gap (5-19) BUN (6-20) mg/dL Creatinine (0.7-1.2) mg/dL GFR Calculation (90-130) mL/min Glucose (65-115) mg/dL Calculated Osmolal ity (285-295) mOsm/k g Lactate 2.2 (0.5-2.2) mmol/L Calcium (8.5-10.5) mg/dL Troponin T Baselin e (0-15) ng/L Troponin T 120 [place] (0-15) ng/L Delta Troponin T (0-10) ABS# TSH (0.27-4.20) uIU/ mL Urine Color (Yellow) Urine Appearance (CLEAR) Urine pH (5-7) Ur Specific Gravit y (1.005-1.030) Urine Protein (Negative) Urine Glucose (UA) (Normal) Urine Ketones (Negative) Urine Blood (Negative) Urine Nitrate (Negative) Urine Bilirubin (Negative) Prot Sulfosalicyli c Acd (Negative) Urine Urobilinogen (Negative) mg/dL Ur Leukocyte Mirtha ase (Negative) Urine RBC (0-2) /hpf Urine WBC (0-5) /hpf Ur Squamous Epith Cells (0-5) /hpf Triple Phos [place] /hpf Amorphous Sediment Urine Bacteria (NONE) /hpf Critical Care Time Critical Care Time: Critical Care Time: Yes Total Critical Care Time: 35 Attestation: This case had a high probability of a clinically significant, sudden, or life threatening deterioration of this patient's condition which required my full and direct attention, intervention and personal management. Discharge Plan Discharge Patient Disposition: Admitted As Inpatient Admit Provider: Alejo Cheng Clinical Impression: Septic shock Condition: Stable Coding Level of Care Code ED Lining Cutter for Rona Machuca
[2021-05-25 11:47] LABS: Basophils % 0.3 %; Eosinophils % 0.1 %; Hematocrit 38.5 % (42.0-52.0); Lymphocytes # 1.4 10^3/uL (0.8-4.8); Lymphocytes % 11.9 %; Mean Corpuscular HGB Conc 31.2 g/dL (30.0-36.0); Mean Corpuscular Hemoglobin 28.4 pg (28.0-34.0); Mean Corpuscular Volume 91.2 fl (80-94); Mean Platelet Volume 9.2 fL (7.4-10.4); Monocytes # 0.9 10^3/uL (0.2-0.9); Monocytes % 7.9 %; Neutrophils # 9.51 10^3/uL (1.8-7.7); Neutrophils % 79.4 %; Nucleated Red Blood Cells % 0 %; Platelet Count 225 10^3/cmm (130-400); Positive C 1; Red Blood Count 4.22 10^6/uL (4.1-5.3); Red Cell Distribution Width 15.2 % (12.1-15.1)
[2021-05-25 12:05] LABS: Anion Gap 13.1 (5-19); Blood Urea Nitrogen 13 mg/dL (6-20); Calcium 8.3 mg/dL (8.5-10.5); Carbon Dioxide 24 mmol/L (22-29); Chloride 103 mmol/L (98-107); Glomerular Filtration Rate 173.3 mL/min (90-130); Glucose 127 mg/dL (65-115); Osmolality Calculated 284 mOsm/kg (285-295); Potassium 4.1 mmol/L (3.5-5.1); Sodium 136 mmol/L (136-145)
--- NOTE | 2021-05-25 13:29 | CTR_ITS ---
PROCEDURE INFORMATION: Exam: CT Abdomen And Pelvis With Contrast Exam date and time: 05/25/2021 1:29 PM Age: 55 years old Clinical indication: Abdominal tenderness and bloating; Prior surgery; Surgery date: 6+ months; Surgery type: Gb, suprapubic cath; Patient HX: Abd distention w no urine output; Additional info: Suprapubic cath malfuction, abdominal distension, no uop TECHNIQUE: Imaging protocol: Computed tomography of the abdomen and pelvis with contrast. Radiation optimization: All CT scans at this facility use at least one of these dose optimization techniques: automated exposure control; mA and/or kV adjustment per patient size (includes targeted exams where dose is matched to clinical indication); or iterative reconstruction. Contrast material: OMNI 300; Contrast volume: 95 ml; Contrast route: INTRAVENOUS (IV); COMPARISON: CT abdomen pelvis w con* [id number] 04/12/2021 10:48 PM RADIATION DOSE METRICS: Total DLP (mGy-cm): 424.35 FINDINGS: Liver: 1 cm low-attenuation lesion left hepatic lobe, likely a cyst or hemangioma, unchanged. Gallbladder and bile ducts: Cholecystectomy. No ductal dilation. Pancreas: Normal. No ductal dilation. Spleen: Normal. No splenomegaly. Adrenal glands: Normal. No mass. Kidneys and ureters: Bilateral renal pelvis stones again noted. No significant interval change of a 7 mm linear stone in the right renal pelvis. The other stone in the right renal pelvis appears less conspicuous than on prior study measuring up to 5 mm in size, previously 7 mm. The largest stone in the left renal pelvis measures 9 mm, appears less bulky than on previous examination. No significant interval change of the additional 7 mm stone in the left renal pelvis. There is mild urothelial thickening at the left renal pelvis. Mild asymmetric left perinephric stranding is noted. Stomach and bowel: Unremarkable. No obstruction. No mucosal thickening. Appendix: No evidence of appendicitis. Intraperitoneal space: Unremarkable. No free air. No significant fluid collection. Vasculature: Unremarkable. No abdominal aortic aneurysm. Lymph nodes: Unremarkable. No enlarged lymph nodes. Urinary bladder: A suprapubic catheter is in place within a decompressed bladder. Reproductive: Unremarkable as visualized. Bones/joints: Unremarkable. No acute fracture. Soft tissues: Unremarkable. CT/CT abdomen pelvis w con* [id number] IMPRESSION: 1. Suprapubic catheter noted within the bladder which is decompressed. 2. Some interval decrease in the size of the bilateral renal pelvic stone burden. Radiation Dose CTDIVOL = (mGy): DLP = 424.35 (mGy-cm)
--- NOTE | 2021-05-25 13:32 | PC.NURSE ---
Dr Paz changed out parker cath, flushed and still not urine return.
[2021-05-25] MEDS: iohexol 300 mg/mL 100 mL Btl IV (14:46)
--- NOTE | 2021-05-25 15:07 | ECG_ITS ---
[facility] Test Date: 2021-05-25 Pat Name: Delvin Mittal Department: Room: Gender: Male Director Motion Picture: : 1965 Requested By: Migel Paz Order Number: [id number] Nicolas MD: Juliann Miles M.D. Measurements Intervals [place] Rate: 143 P: 80 OR: 145 QRS: 66 QRSD: 82 T: 63 QT: 327 QTc: 506 Interpretive Statements SINUS TACHYCARDIA, POSSIBLE ATRIAL FLUTTER POSSIBLE INFERIOR MYOCARDIAL INFARCTION , PROBABLY OLD [30 ms Q WAVE IN II/aVF] ABNORMAL RHYTHM ECG No previous ECG available for comparison Electronically Signed On 05-26-2021 17:41:47 CDT by Juliann Miles M.D. [id number]
--- NOTE | 2021-05-25 15:13 | XRR_ITS ---
PROCEDURE INFORMATION: Exam: XR Chest Exam date and time: 05/25/2021 3:13 PM Age: 55 years old Clinical indication: Dyspnea; Additional info: Tachycardia TECHNIQUE: Imaging protocol: XR of the chest. Views: 1 view. COMPARISON: CR (CHEST, ) 04/12/2021 8:07 PM FINDINGS: Lungs: Unremarkable. No consolidation. Pleural spaces: Unremarkable. No pleural effusion. No pneumothorax. Heart/Mediastinum: Unremarkable. No cardiomegaly. Bones/joints: Unremarkable. XR/XR chest 1V portable [id number] IMPRESSION: Stable exam, no acute findings.
[2021-05-25] MEDS: morphine 4 mg/mL SDV 1 mL IVP (15:15)
[2021-05-25] MEDS: lactated ringers 1,000 ML 999 ML IV (15:17)
[2021-05-25 15:34] LABS: Thyroid Stimulating Hormone 0.91 uIU/mL (0.27-4.20)
[2021-05-25 15:56] LABS: Troponin(5th) Baseline 16 ng/L (0-15)
[2021-05-25] MEDS: piperacillin-tazobactam 4.5 GM in sodium chloride 0.9% (plus) 50 ML IV (16:26)
[2021-05-25 16:50] LABS: Add Urine Microscopic? YES; Bilirubin Urine Neg (Negative); Blood Urine 3+ (Negative); Glucose Urine UA Norm (Normal); Ketones Urine 1+ (Negative); Leukocyte Esterase Urine 2+ (Negative); Nitrate Urine Positive (Negative); Protein Urine Trace (Negative); Urine Appearance Hazy (CLEAR); Urine Color Yellow (Yellow); Urobilinogen Urine Norm (Negative); pH Urine 9 (5-7)
[2021-05-25] MEDS: acetaminophen 1,000 MG/100 ML PIGGYBACK 400 MG IV (16:52)
[2021-05-25 16:54] LABS: Sulfosalicylic Acid Urine Positive (Negative)
[2021-05-25 16:55] LABS: WBC Urine >100 /hpf (0-5)
[2021-05-25 16:56] LABS: Bacteria Urine 2+ /hpf; Triple Phosphate Crystal Urine 0-4 /hpf
[2021-05-25 16:57] LABS: Add Urine Culture? Yes; RBC Urine >100 /hpf (0-2)
[2021-05-25 17:58] LABS: Troponin 5 2HR 38.14 ng/L (0-15)
[2021-05-25 18:15] LABS: Troponin 5 2HR Delta 22.14 ABS# (0-10)
--- NOTE | 2021-05-25 18:37 | PC.NURSE ---
Cleaned and place new dressing on left hip
[2021-05-25 18:41] LABS: Lactate (Lactic Acid level) 2.2 mmol/L (0.5-2.2)
--- NOTE | 2021-05-25 18:51 | PM.HP ---
Providers/Chief Complaint Admitting Physician: Alejo Cheng MD Primary Care Provider: Gaby Martines MD Chief Complaint: NO URINARY OUTPUT X24 HOURS; DISTENDED ABD History of Present Illness Delvin Mittal is a 55 year old male Severe debility due to multiple sclerosis, leading to neurogenic bladder and chronic suprapubic catheter who presented to ER due to Concern for urinary retention. Patient started experiencing decreased urine output since last night. Patient was also having abdominal discomfort and distention, was not able to flush the catheter as she normally does twice daily, Upon arrival in the he was worked up for above mention complain. Suprapubic catheter was changed by the ER physician. Unfortunately patient started spiking temperatures in the ER. Noted maximum T-max was:104.7. Sepsis bundle was initiated. Imaging studies: CT abdomen pelvis w con: No acute pathology noted. XR chest : No infiltrates, no pleural effusion, no pneumothorax. EKG: Sinus tachycardia Pertinent labs: WBC: 12 T , H&H:12/38, platelet count: 225 . Serum sodium 136 and potassium 4.1, BUN / serum creatinine : 13/ 0.5 , serum lactate: 2.2 , TSH: 0.91 urinalysis dirty Troponin: Baseline : 16 2-hour troponin 38 , 2-hour delta:22.14 Review of Systems Narrative: Complete ROS cannot be obtained due to existing medical condition (nonverbal at baseline ) Medications/Allergies Home Medications Medication Instructions Recorded Confirmed Last Taken Type bisacodyl 5 mg tablet 5 mg PO DAILY 09/14/19 05/25/21 05/25/21 History hydrocortisone acetate 1 % rectal See Rx Instructions .ROUTE 09/14/19 05/25/21 04/12/21 History cream .COMPLEX PRN omega-3 fatty acids 1,000 mg 1,000 mg PO DAILY cap 09/14/19 05/25/21 05/24/21 History capsule triamcinolone acetonide 0.025 % 1 applic TOPICAL BID 09/14/19 05/25/21 Unknown History topical cream zinc gluconate 50 mg PO DAILY #30 tab 04/17/21 05/25/21 05/25/21 Rx Allergies Allergy/AdvReac Type Severity Reaction Status Date / Time latex Allergy UNKNOWN Verified 05/07/21 08:57 PFSH Acute PFSH: Medical History (Updated 05/25/21 @ 19:24 by Alejo Cheng MD) Chronic constipation Multiple sclerosis History of Neurogenic bladder Urinary retention Surgical History Chronic suprapubic catheter Status post cholecystectomy Family History Other Pancreatic cancer Social History Smoking and tobacco status: never smoked Alcohol intake: never Caregiver/support person: Yes Marital status: Vitals/I&O/Wt Last Vital Signs Temp 103.7 F H 05/25/21 18:35 Pulse 125 H 05/25/21 18:35 Resp 22 H 05/25/21 18:35 BP 105/73 05/25/21 18:35 Pulse Ox 96 05/25/21 18:35 05/25/21 05/25/21 05/25/21 06:59 14:59 22:59 Intake Total 2350 / 2350 Balance 2350 / 2350 Weight last 48 hrs Weight 72.575 kg Physical Exam Narrative: EXAM NARRATIVE: Patient is nonverbal at baseline HENMT: COMMON NORMALS: normocephalic and atraumatic HEAD & SCALP: normocephalic and atraumatic Resp: COMMON NORMALS: clear to auscultation bilaterally EFFORT & INSPECTION: Yes symmetric chest movement AUSCULTATION: clear to auscultation bilaterally Cardio: COMMON NORMALS: S1 normal heart sound present, S2 normal heart sound present, No gallops present (Cardio), No murmurs present (Cardio) and No rub (Cardio) RHYTHM: regular rhythm HEART SOUNDS: S1 normal heart sound present and S2 normal heart sound present PERIPHERAL PULSES: Peripheral pulses 2+ throughout GI: COMMON NORMALS: Normal to inspection, nondistended, normoactive bowel sounds present, Soft to palpation, non-tender, No hepatosplenomegaly present and no masses AUSCULTATION: Yes normoactive bowel sounds PALPATION: Yes Soft to palpation and Yes No hepatosplenomegaly present RECTAL EXAM: Yes deferred : BLADDER/KIDNEY EXAM: Yes catheter in place and Yes bladder normal to palpation OTHER: Suprapubic catheter site clean. Extremity: COMMON NORMALS: no clubbing, cyanosis or edema and no pedal edema Neuro: COMMON NORMALS: patient oriented x3 Data : 05/25/21 11:30 05/25/21 11:30 Micro: Microbiology 05/25/21 17:30 Blood Culture - Preliminary Blood SPECIMEN COLLECTED 05/25/21 17:24 Blood Culture - Preliminary Blood SPECIMEN COLLECTED A&P Assessment and plan (1) Sepsis: Patient meet sepsis criteria ( leukocytosis , tachycardia, fever) suspected source. Blood culture Urine culture Lactic acid Procalcitonin MRSA PCR Vancomycin Primaxin Status: Acute (2) Elevated troponin: Likely type II RI from sepsis. Monitor 6-hour troponin Telemetry Status: Acute (3) Neurogenic bladder: Has existing suprapubic catheter. Which was changed today in the ER. Status: Acute (4) Multiple sclerosis: Status: Acute Attestations Medical Necessity Statement*: Patient needs to be in hospital for management of sepsis.Anticipated length of stay greater than 2 midnights Coding Level of Care Code Acute Channel Development Director for Chg Fwd Diagnoses Sepsis A41.9 Elevated troponin R77.8 Neurogenic bladder N31.9 Multiple sclerosis G35
--- NOTE | 2021-05-25 19:26 | PC.PHAR ---
Vancomycin is dosed at 1gm IVPB every 8 hours to produce a predicted trough level of 14.29 (population based phrmacokinetic analysis). A trough level has been ordered from the lab to be obtained before the fourth dose to confirm and adjust if needed.
--- NOTE | 2021-05-25 19:36 | PC.NURSE ---
report called to Gill SMITH
[2021-05-25] MEDS: sodium chloride 0.9% 1,000 ML 999 ML IV (19:45)
--- NOTE | 2021-05-25 20:43 | XRR_ITS ---
PROCEDURE INFORMATION: Exam: XR Chest Exam date and time: 05/25/2021 8:43 PM Age: 55 years old Clinical indication: Other vascular access device placement or adjustment; Patient HX: Post central line placement TECHNIQUE: Imaging protocol: XR of the chest. Views: 1 view. COMPARISON: CR (CHEST, ) 05/25/2021 3:34 PM FINDINGS: Tubes, catheters and devices: Right central line appears to enter in terminate within the left innominate vein. Lungs: No consolidation. Pleural spaces: Unremarkable. No pleural effusion. No pneumothorax. Heart/Mediastinum: Unremarkable. No cardiomegaly. Bones/joints: Unremarkable. XR/XR chest 1V portable [id number] IMPRESSION: Right central line appears to enter and terminate within the left innominate vein. Would recommend retraction of at least 7 cm and confirmation of venous placement.
--- NOTE | 2021-05-25 20:53 | PC.NURSE ---
pt having persistent hypotension. dr parikh spoke with dr nicole decision made to admit pt to icu report called to sabrina at this time
--- NOTE | 2021-05-25 21:04 | ECG_ITS ---
[facility] Test Date: 2021-05-25 Pat Name: Delvin Mittal Department: Room: ICU03 Gender: Male Box Cutter: : 1965 Requested By: Migel Paz Order Number: [id number] Reading MD: Juliann Miles M.D. Measurements Intervals [place] Rate: 125 P: 73 WV: 157 QRS: 29 QRSD: 78 T: 21 QT: 317 QTc: 458 Interpretive Statements SINUS TACHYCARDIA WITH OCCASIONAL SUPRAVENTRICULAR PREMATURE COMPLEXES POSSIBLE ANTERIOR MYOCARDIAL INFARCTION , PROBABLY OLD [30 ms Q WAVE IN V3/V4, OR R < 0.2 mV IN V4] ABNORMAL RHYTHM ECG Compared to ECG 05/25/2021 16:05:14 No significant changes Electronically Signed On 05-26-2021 18:15:17 CDT by Juliann Miles M.D. [email or web address]
--- NOTE | 2021-05-25 21:22 | XRR_ITS ---
PROCEDURE INFORMATION: Exam: XR Chest Exam date and time: 05/25/2021 9:22 PM Age: 55 years old Clinical indication: Other vascular access device placement or adjustment; Central line, non-tunnelled; Patient HX: Central line placement TECHNIQUE: Imaging protocol: XR of the chest. Views: 1 view. COMPARISON: CR (CHEST, ) 05/25/2021 8:45 PM FINDINGS: Tubes, catheters and devices: Right central line now appears to project at the cavoatrial junction. Lungs: No consolidation. Pleural spaces: Unremarkable. No pleural effusion. No pneumothorax. Heart/Mediastinum: Unremarkable. No cardiomegaly. Bones/joints: Unremarkable. XR/XR chest 1V portable [id number] IMPRESSION: Right central line now appears in proper positioning at the cavoatrial junction.
[2021-05-25] MEDS: sodium chloride 0.9% 1,000 ML 100 ML IV (21:31)
[2021-05-25 21:48] LABS: Troponin 5 6HR 45.89 ng/L (0-15)
--- NOTE | 2021-05-25 21:50 | PC.NURSE ---
Transfer Note Patient transferred to ICU from ER via stretcher. Handoff received from SARAH Robles. Patient oriented to environment and equipment. Covering service notified. Orders reviewed and will continue to monitor. Family notified.
[2021-05-25 21:55] LABS: NT Pro B Type Natriuretic Pept 1536 pg/mL (0-125)
[2021-05-25 22:10] LABS: Troponin 5 6HR Delta 29.89 ng/L (0-12)
--- NOTE | 2021-05-25 22:30 | PC.NURSE ---
Family Stay with Patient Spoke with patient son and daughter on the phone regarding their mother staying with their father in the hospital. They informed nurse that it was crucial for their mother to stay in the hospital with their father for his well being. Daughter also reports that her mother is the only one who can interpret the patient and communicate his needs to the hospital staff, nobody else can understand him. This nurse called customs house broker regarding the patients being able to stay overnight in the ICU, customs house broker approved but said overnight associate doctor also needed to approve the decision. caustic cresylate shift superintendent approved of family member staying with the patient overnight.
[2021-05-26] VITALS (143 sets, daily range): BP systolic 76–127; BP diastolic 43–73; PULSE 93–128; TEMP 37.1–38.8; O2SAT 93–99
--- NOTE | 2021-05-26 01:04 | ECG_ITS ---
[facility] Test Date: 2021-05-26 Pat Name: Delvin Mittal Department: Room: ICU03 Gender: Male Orchard Sprayer: : 1965 Requested By: Migel Paz Order Number: [id number] Reading MD: Juliann Miles M.D. Measurements Intervals [place] Rate: 119 P: 48 MO: 159 QRS: 26 QRSD: 81 T: 24 QT: 317 QTc: 447 Interpretive Statements SINUS TACHYCARDIA POSSIBLE ANTERIOR MYOCARDIAL INFARCTION , PROBABLY OLD [30 ms Q WAVE IN V3/V4, OR R < 0.2 mV IN V4] PROBABLE INFERIOR MYOCARDIAL INFARCTION , PROBABLY OLD [35 ms Q WAVE IN II/aVF] Compared to ECG 05/25/2021 22:27:10 No significant changes Electronically Signed On 05-26-2021 18:15:26 CDT by Juliann Miles M.D. [id number]
[2021-05-26 04:09] LABS: Basophils % 0.2 %; Hematocrit 31.5 % (42.0-52.0); Hemoglobin 9.9 g/dL (11.7-16.6); Lymphocytes # 0.5 10^3/uL (0.8-4.8); Lymphocytes % 2.9 %; Mean Corpuscular HGB Conc 31.4 g/dL (30.0-36.0); Mean Corpuscular Hemoglobin 28.4 pg (28.0-34.0); Mean Corpuscular Volume 90.3 fl (80-94); Mean Platelet Volume 9.7 fL (7.4-10.4); Monocytes # 0.4 10^3/uL (0.2-0.9); Monocytes % 2.6 %; Neutrophils # 15.08 10^3/uL (1.8-7.7); Neutrophils % 92.4 %; Nucleated Red Blood Cells % 0 %; Platelet Count 176 10^3/cmm (130-400); Red Blood Count 3.49 10^6/uL (4.1-5.3); Red Cell Distribution Width 15.5 % (12.1-15.1); White Blood Count 16.3 10^3/uL (4.0-10.0)
[2021-05-26 04:58] LABS: Procalcitonin 60.35 ng/mL (0-0.5)
[2021-05-26 05:09] LABS: Alanine Aminotransferase 12 U/L (0-41); Albumin Level 2.3 g/dL (3.5-5.2); Alkaline Phosphatase 83 IU/L (40-130); Aspartate Amino Transferase 16 U/L (0-40); Blood Urea Nitrogen 10 mg/dL (6-20); Calcium 7.3 mg/dL (8.5-10.5); Carbon Dioxide 19 mmol/L (22-29); Chloride 104 mmol/L (98-107); Globulin 2.7 g/dL (1.3-4.6); Glomerular Filtration Rate 173.3 mL/min (90-130); Glucose 165 mg/dL (65-115); Osmolality Calculated 283 mOsm/kg (285-295); Sodium 135 mmol/L (136-145); Total Bilirubin 1.3 mg/dL (0.15-1.2)
--- NOTE | 2021-05-26 05:30 | PC.NURSE ---
Patient Refused Turn and Reposition Patient lying on left side throughout evening. Frequently tried to turn and reposition patient throughout the night, patient refused turn and reposition. Attempted to explain to patient that lying on left side where left hip wound is located will not allow the wound to heal and could cause skin breakdown to other areas. still denied turn and reposition. Heels protectors were applied to patient.
[2021-05-26 05:43] LABS: Slide Review Slide Review Perform
--- NOTE | 2021-05-26 07:20 | PC.NURSE ---
Shift Note Frequent safety and comfort rounds continue. Orders and/or nursing care completed as indicated. Patient monitored for response to intervention and treatment(s). Education provided includes turn and reposition. Patient cannot verbalize understanding of teaching, patient verbalizes understanding. Patient remains on room air. Left hip wound is redressed, it is dry and intact. See wound assessment for further detail. Patient has a right IJ central line Levophed is infusing at 12 mcg/min. Left hand IV is saline locked. Platt catheter drained 1000 mls of bright yellow urine overnight. Will continue to monitor.
[2021-05-26] MEDS: lidocaine 1% 5 ML in potassium chloride premix 100 ML 25 ML IV (08:57)
[2021-05-26] MEDS: bisacodyl 10 mg Supp 5 MG PR (08:58)
[2021-05-26] MEDS: vancomycin 1,000 MG in sodium chloride 0.9% 250 ML 250 MG IV ×2 (09:00→17:10)
--- NOTE | 2021-05-26 12:46 | PM.PN ---
Subjective Subjective: Interval history: Patient was seen and examined this morning, overnight patient went into septic shock, he was to be started on Levophed, has also been spiking temperature.Current plan is titarte levophed to maintain MAP > 65. Family has been updated. Medications: Reviewed: Yes Vitals/I&O/Wt Last Vital Signs Temp 98.7 F 05/26/21 12:00 Pulse 100 05/26/21 12:15 Resp 18 05/25/21 21:58 BP 82/52 05/26/21 12:15 Pulse Ox 98 05/26/21 12:15 05/25/21 05/26/21 05/26/21 22:59 06:59 14:59 Intake Total 4035.163 / 4035.163 317.17 / 4352.333 604.000 / 604.000 Output Total 1000 / 1000 Balance 4035.163 / 4035.163 -682.83 / 3352.333 604.000 / 604.000 Weight last 48 hrs Weight 69.938 kg Weight 72.575 kg Physical Exam Narrative: EXAM NARRATIVE: Patient is nonverbal at baseline Const: COMMON NORMALS: patient oriented x3 HENMT: COMMON NORMALS: normocephalic and atraumatic HEAD & SCALP: normocephalic and atraumatic Resp: COMMON NORMALS: clear to auscultation bilaterally EFFORT & INSPECTION: Yes symmetric chest movement AUSCULTATION: clear to auscultation bilaterally Cardio: COMMON NORMALS: S1 normal heart sound present, S2 normal heart sound present, No gallops present (Cardio), No murmurs present (Cardio) and No rub (Cardio) HEART SOUNDS: S1 normal heart sound present and S2 normal heart sound present GI: COMMON NORMALS: Normal to inspection, nondistended, normoactive bowel sounds present, Soft to palpation, non-tender, No hepatosplenomegaly present and no masses AUSCULTATION: Yes normoactive bowel sounds PALPATION: Yes Soft to palpation and Yes No hepatosplenomegaly present RECTAL EXAM: Yes deferred : BLADDER/KIDNEY EXAM: Yes catheter in place and Yes bladder normal to palpation OTHER: Suprapubic catheter site clean. Extremity: COMMON NORMALS: no clubbing, cyanosis or edema and no pedal edema Neuro: COMMON NORMALS: patient oriented x3 Skin: NARRATIVE SKIN EXAM: Stage 4 clean ulcer on lt lateral thigh. Data : 05/26/21 03:22 05/26/21 03:22 Micro: Microbiology 05/25/21 16:40 Urine Culture - Preliminary Urine,Clean Catch Gram Negative Rods 05/25/21 17:30 Blood Culture - Preliminary Blood SPECIMEN COLLECTED 05/25/21 17:24 Blood Culture - Preliminary Blood SPECIMEN COLLECTED A&P Assessment and plan (1) Septic shock: Patient meet sepsis criteria ( leukocytosis , tachycardia, fever) suspected source. Blood culture: Urine culture:GNR Lactic acid: 2.2 Procalcitonin: 60.35 MRSA PCR Vancomycin Primaxin On Levophed Status: Acute (2) Elevated troponin: Elevated Troponin with Significant delta : Likely type II WV from sepsis. Follow 2D Echo Telemetry Status: Acute (3) Neurogenic bladder: Has existing suprapubic catheter. Which was changed today in the ER. Status: Acute (4) Multiple sclerosis: Status: Acute Attestations Medical Necessity Statement*: Patient needs to be in hospital for the management of septic shock Coding Level of Care Code Acute Process Architect for [facility] Diagnoses Septic shock A41.9; R65.21 Elevated troponin R77.8 Neurogenic bladder N31.9 Multiple sclerosis G35
--- NOTE | 2021-05-26 13:59 | PC.NUTR ---
Nutrition Note: When medically appropriate and Pt's diet can be advanced from NPO, recommend consideration of Dysphagia Level 1 Pureed with pudding consistency.Through a nurse (Allison) who also speaks [place]an, Pt's reported blending everything to the consistency that she can put it on a spoon and can eat without swallowing/chewing problems.
--- NOTE | 2021-05-26 18:08 | PC.NURSE ---
Shift Note Frequent safety and comfort rounds continue. Orders and nursing care completed as indicated. Wound care completed this am with assistance of Dr. Cheng. Pt remains on Levophed drip at 4mcg/min, see Vital Signs. Pt advanced diet to Dysphasia level 1 with nectar thicken liquids. at bedside to assist with patient care and translation. Pt turned Q2 hours with help of . Patient noted to have had a bowel movement this am and 550ml out in urine output this shift. Pt had a temperature today, last temperature taken at 1700 was 100 degrees axillary, see vital signs. Patient monitored for response to intervention and treatments. Education provided to included: frequent position changes, blood pressure medications, and antibiotics given throughout day, verbalized understanding. Will continue to monitor.
[2021-05-26] MEDS: acetaminophen 325 mg Tablet 650 MG PO (20:37)
[2021-05-27] VITALS (58 sets, daily range): BP systolic 94–125; BP diastolic 51–81; PULSE 82–106; RESP 16–20; TEMP 36.6–38.1; O2SAT 95–98; BMI 22.2
[2021-05-27] MEDS: vancomycin 1,000 MG in sodium chloride 0.9% 250 ML 250 MG IV ×2 (03:23→09:59)
[2021-05-27 05:01] LABS: Basophils # 0.1 10^3/uL (0.0-0.1); Basophils % 0.3 %; Eosinophils # 0.1 10^3/uL (0.0-0.8); Eosinophils % 0.7 %; Hematocrit 30.3 % (42.0-52.0); Hemoglobin 9.1 g/dL (11.7-16.6); Lymphocytes # 1.6 10^3/uL (0.8-4.8); Lymphocytes % 10.1 %; Mean Corpuscular Hemoglobin 27.3 pg (28.0-34.0); Mean Platelet Volume 10.3 fL (7.4-10.4); Monocytes # 0.7 10^3/uL (0.2-0.9); Monocytes % 4.4 %; Neutrophils # 12.59 10^3/uL (1.8-7.7); Neutrophils % 79.9 %; Nucleated Red Blood Cells % 0 %; Platelet Count 124 10^3/cmm (130-400); Red Blood Count 3.33 10^6/uL (4.1-5.3); Red Cell Distribution Width 15.6 % (12.1-15.1); White Blood Count 15.8 10^3/uL (4.0-10.0)
[2021-05-27 05:50] LABS: NT Pro B Type Natriuretic Pept 2189 pg/mL (0-125); Procalcitonin 22.28 ng/mL (0-0.5); Slide Review Slide Review Perform
[2021-05-27 06:01] LABS: Alanine Aminotransferase 9 U/L (0-41); Albumin Level 2.1 g/dL (3.5-5.2); Alkaline Phosphatase 89 IU/L (40-130); Anion Gap 10.8 (5-19); Aspartate Amino Transferase 11 U/L (0-40); Blood Urea Nitrogen 8 mg/dL (6-20); C Reactive Protein 276.3 mg/L (0.0-4.9); Calcium 7.5 mg/dL (8.5-10.5); Carbon Dioxide 22 mmol/L (22-29); Chloride 109 mmol/L (98-107); Globulin 2.5 g/dL (1.3-4.6); Glomerular Filtration Rate 312.4 mL/min (90-130); Glucose 116 mg/dL (65-115); Magnesium 1.6 mg/dL (1.7-2.3); Osmolality Calculated 287 mOsm/kg (285-295); Phosphorus 1.4 mg/dL (2.5-4.5); Sodium 139 mmol/L (136-145); Total Bilirubin 0.5 mg/dL (0.15-1.2); Total Protein 4.6 g/dL (6.6-8.7)
[2021-05-27 06:04] LABS: Potassium 2.8 mmol/L (3.5-5.1)
--- NOTE | 2021-05-27 07:02 | PC.NURSE ---
Shift Note Frequent safety and comfort rounds continue. Orders and/or nursing care completed as indicated. Patient monitored for response to intervention and treatment(s). Education provided includes wound care. Patient phone representative verbalizes understanding of teaching. Left hand IV remains saline locked. Right IJ central line infusing Levophed at 2 mcg/min. Left hip pressure ulcer dressing intact and changed. No other wounds or skin issues noted at this time. Patient remains on room air. Platt catheter drained 400 mls of bright yellow urine overnight. Will continue to monitor.
[2021-05-27] MEDS: magnesium sulfate premix 2 GM/50 ML PIGGYBACK IV (07:11)
--- NOTE | 2021-05-27 08:39 | P.PN_ITS ---
Subjective Subjective: Interval history: Patient was seen this morning, I spoke to patient with a Romanian gun repair clerk, she is telling me that he is doing well, he is much more responsive, he can follow some commands, afebrile overnight, she understands that he has a bladder infection, she knows that he is doing well, afebrile overnight, still on 2 Levophed, on room air, normotensive Vitals/I&O/Wt Last Vital Signs Temp 98.0 F 05/27/21 08:15 Pulse 103 H 05/27/21 08:15 Resp 18 05/25/21 21:58 BP 116/70 05/27/21 08:15 Pulse Ox 95 05/27/21 08:15 05/26/21 05/27/21 05/27/21 22:59 06:59 14:59 Intake Total 712.159 / 1524.461 540.246 / 2064.707 270 / 270 Output Total 550 / 550 400 / 950 Balance 162.159 / 974.461 140.246 / 1114.707 270 / 270 Weight last 48 hrs Weight 68.266 kg Weight 69.938 kg Weight 72.575 kg Physical Exam Const: COMMON NORMALS: no acute distress ORIENTATION/CONSCIOUSNESS: Yes awake Resp: COMMON NORMALS: normal respiratory effort, No retractions, No use of accessory muscles and clear to auscultation bilaterally AUSCULTATION: clear to auscultation bilaterally Cardio: COMMON NORMALS: regular rate, regular rhythm, S1 normal heart sound present and S2 normal heart sound present RATE: regular rate RHYTHM: regular rhythm HEART SOUNDS: S1 normal heart sound present and S2 normal heart sound present GI: COMMON NORMALS: Normal to inspection, nondistended, normoactive bowel sounds present, Soft to palpation and non-tender PALPATION: Yes Soft to palpation Extremity: NARRATIVE EXTREMITY EXAM: 1+ pitting edema Flexion contractures of upper extremities Prefers to lean to the right Neuro: OTHER: Alert, can follow some commands, can say a few words Data : 05/27/21 04:27 05/27/21 04:27 Micro: Microbiology 05/25/21 17:30 Blood Culture - Preliminary Blood 05/27/21 04:27 Blood Culture - Preliminary Blood SPECIMEN COLLECTED 05/27/21 04:27 Blood Culture - Preliminary Blood SPECIMEN COLLECTED 05/25/21 17:24 Blood Culture - Preliminary Blood Gram Negative Rods 05/25/21 16:40 Urine Culture - Preliminary Urine,Clean Catch Gram Negative Rods A&P Assessment and plan (1) Septic shock: Secondary to UTI, left pyelonephritis, gram-negative bacteremia Has a suprapubic catheter in place, replaced by the ER WBC 15.8, lactic 2.2, pro-Chester 22.8, CRP 276 CT of the abdomen and pelvis shows: ilateral renal pelvis stones again noted. No significant interval change of a 7 mm linear stone in the right renal pelvis. The other stone in the right renal pelvis appears less conspicuous than on prior study measuring up to 5 mm in size, previously 7 mm. The largest stone in the left renal pelvis measures 9 mm, appears less bulky than on previous examination. No significant interval change of the additional 7 mm stone in the left renal pelvis. There is mild urothelial thickening at the left renal pelvis. Mild asymmetric left perinephric stranding is noted. Will discuss above findings with Dr. Cedeno Follow identification of blood cultures, urine cultures Currently on vancomycin and Primaxin Start midodrine 10 3 times daily Wean off Levophed Plan on moving out of ICU Status: Acute (2) Elevated troponin: Elevated Troponin with Significant delta : Likely type II [place] from sepsis. Continue aspirin, statin Cardiac echocardiogram pending Telemetry Status: Acute (3) Neurogenic bladder: Has existing suprapubic catheter. Was exchanged by ER Status: Acute (4) Multiple sclerosis: Status: Acute (5) UTI (urinary tract infection): Status: Acute (6) Gram-negative bacteremia: Status: Acute (7) Deep tissue injury: -Patient has deep tissue injury, left hip, measuring 1 x 2 cm, round, deep by 1 cm -I cannot see any necrotic tissue, has good granulation tissue -Currently receiving wet-to-dry dressing -Continue wet-to-dry dressing, wound care, continue to monitor -Continue to redistribute pressure -No evidence of tunneling -nutrition consult Status: Acute (8) Pyelonephritis of left kidney: Status: Acute (9) Acute on chronic anemia: -Hemoglobin down to 9.1, acute on chronic anemia -Likely component related to sepsis -However we will do iron studies, B12, folate Hemoccult stool -Protonix 40 twice daily Status: Acute Additional A&P Information Hypokalemia, hypomagnesemia, hypophosphatemia, will replace today Attestations Medical Necessity Statement*: Patient requires hospitalization for sepsis secondary to UTI, pyelonephritis, gram-negative bacteremia, sepsis, Coding Level of Care Code Acute Strap Stitcher for Chg Fwd Diagnoses Septic shock A41.9; R65.21 Elevated troponin R77.8 Neurogenic bladder N31.9 Multiple sclerosis G35 UTI (urinary tract infection) N39.0 Gram-negative bacteremia R78.81 Deep tissue injury T14.8XXA Pyelonephritis of left kidney N12 Acute on chronic anemia D64.9
--- NOTE | 2021-05-27 09:24 | PC.CHAP ---
Pastoral Care Encounter/Spiritual Assessment Type of Contact [] Declined manager news visit [] Patient/Family/Request visit [] Outpatient visit [] Follow-up visit [] Physician referral [] Code/Alert [x] Routine visit [] Staff referral [] Actively dying [x] Patient sleeping [] Family support [] [] Out of room [] Palliative care [] [] Receiving care in room [] Pre-surgical visit [] Trauma [] Long length of stay [x] ICU visit [] Other: Relational/Emotional Strength [] Patient feels connected with others/family/visitors/staff [] Distress [] Loneliness/isolation [] Abandonment Spirituality of Patient [] Person of Jia [] Attends Holiness of their Jia [] Believes in Prayer [] Reads Bible or Baptist materials [] There are Spiritual issues to be addressed Web Methods Developer Interventions [x] Prayer [] Active listening [] Non-anxious presence [] Spiritual/emotional support [] Crisis/trauma care [] Spiritual counseling [] Bereavement support [] Provided bereavement packet [] Provided Bible/devotional materials [] Provided toy/stuffed animal, coloring book to patient or family member [] Provided Communion [] Anointing/[place] [] Salvation [x] Completed spiritual assessment [] Other: Impact on Illness or Injury [] Angry [] Fearful [] Anxious [] Often cries [] Exhaustion [] Unable to work [] Unable to attend druze [] Unable to walk/stand [] Unable to read [] Unable to drive [] Unable to eat/drink [] Unable to sleep [] Unable to be with family [] Patient intubated [] Other: Summary Time spent with patient
[2021-05-27] MEDS: aspirin 81 mg EC Tablet PO (09:51)
[2021-05-27] MEDS: midodrine 5 mg TABLET 10 MG PO ×3 (09:51→21:55)
[2021-05-27] MEDS: pantoprazole DR 40 mg Tablet PO ×2 (09:51→18:04)
[2021-05-27] MEDS: bisacodyl 10 mg Supp 5 MG PR (09:59)
[2021-05-27 10:09] LABS: Ferritin 485 ng/mL (30-400); Iron 9 ug/dL (59-158); Percent Saturation 10.9 % (20-50); Total Iron Binding Capacity 82 mcg/dl; Unsaturated Iron Binding 73 ug/dL (112-347); Vitamin B12 233 pg/mL (232-1245)
[2021-05-27 10:20] LABS: Folate Level 7.1 ng/mL (4.5-32.2)
--- NOTE | 2021-05-27 11:43 | USCV_ITS ---
Delvin Mittal Age: 55 Gender: M : 1965 Exam Date: 05/27/2021 07:44 Ordering Phys: Alejo Cheng MD Technologist: [place] [facility] [place] SOB BP: 121 / 73 HR: 99 Rhythm: Sinus Technical Quality: Adequate MEASUREMENTS (Male / Female) Normal Values 2D ECHO LV Diastolic Diameter PLAX 4.4 cm 4.2 - 5.9 / 3.9 - 5.3 cm LV Systolic Diameter PLAX 2.1 cm IVS Diastolic Thickness 0.9 cm 0.6 - 1.0 / 0.6 - 0.9 cm IVS Systolic Thickness 1.4 cm LVPW Diastolic Thickness 1.1 cm 0.6 - 1.0 / 0.6 - 0.9 cm LVPW Systolic Thickness 1.2 cm LVOT Diameter 2.0 cm LV Ejection Fraction 2D Teich 83.1 % LV Ejection Fraction MOD 2C 60.6 % LV Ejection Fraction 2C AL 61.3 % LA Diameter 3.3 cm Aorta at Sinotubular Diameter 2.4 cm M-MODE LV Diastolic Diameter MM 4.6 cm 4.2 - 5.9 / 3.9 - 5.3 cm LV Systolic Diameter MM 2.9 cm LV Ejection Fraction MM Teich 68.7 % IVS Diastolic Thickness MM 0.9 cm 0.6 - 1.0 / 0.6 - 0.9 cm IVS Systolic Thickness MM 1.9 cm LVPW Diastolic Thickness MM 1.2 cm 0.6 - 1.0 / 0.6 - 0.9 cm LVPW Systolic Thickness MM 1.6 cm RV Diastolic Diameter MM 1.2 cm Aortic Annulus Diameter 2.7 cm LA Ao Ratio MM 1.4 MV E Point Septal Separation 0.8 cm DOPPLER AV Peak Velocity 139.0 cm/s LVOT Peak Velocity 124.0 cm/s AV Area Cont Eq vti 2.6 cm squared AV Area Cont Eq pk 2.9 cm squared MV Area PHT 5.0 cm squared Mitral E to A Ratio 1.3 MV E' Velocity 60.0 cm/s Mitral E to MV E' Ratio 10.2 Mitral E to LV E' Lateral Ratio 9.9 Mitral E to LV E' Septal Ratio 10.5 TR Peak Velocity 215.7 cm/s TR Peak Gradient 18.6 mmHg TV Peak E Velocity 93.0 cm/s Right Atrial Pressure 3.0 mmHg Pulmonary Artery Systolic Pressu 21.6 mmHg FINDINGS Left Ventricle Normal left ventricular cavity size. Normal left ventricular systolic function. No regional wall motion abnormalities. Left ventricular ejection fraction is estimated at 60 %. Normal diastolic function. Right Ventricle The right ventricle is normal in size and function. Right Atrium The right atrium is normal in size. Left Atrium The left atrium is normal in size. Mitral Valve Structurally normal mitral valve without significant stenosis or prolapse. There is no mitral regurgitation. Aortic Valve Structurally normal aortic valve without significant sclerosis or stenosis. There is no aortic regurgitation. Tricuspid Valve Structurally normal tricuspid valve without significant stenosis or regurgitation. Pulmonary artery systolic pressure is normal. Pulmonic Valve Structurally normal pulmonic valve without significant stenosis. There is no pulmonic regurgitation. Pericardium Normal pericardium without effusion. Aorta Normal ascending aorta dimension. CONCLUSIONS 1-Normal left ventricular cavity size. Normal left ventricular systolic function. No regional wall motion abnormalities. Left ventricular ejection fraction is estimated at 60 %. Normal diastolic function. 2-There is no pericardial effusion. 3-Pulmonary artery systolic pressure is within normal limits. 4-No significant valve abnormalities. 5-Right atrial pressure is around 5 mm of mercury. 6-There are no prior echocardiogram studies to compare. Nicki Bergeron MD (Electronically Signed) Final Date: 27 May 2021 19:17 S
--- NOTE | 2021-05-27 13:58 | PC.NURSE ---
Report called to SARAH Victor on [facility]. Pt transferred to [facility] room 255-2 by bed with at side. Belongings placed at bedside. Kayleigh noted to be at bedside at time of transfer.
--- NOTE | 2021-05-27 21:51 | PC.NURSE ---
IV IV to left hand/wrist leaking with flush and some pain also with flush. IV discontinued. Has IJ CVL in place right neck for use.
[2021-05-27] MEDS: atorvastatin 40 mg Tablet PO (21:55)
[2021-05-28] VITALS (7 sets, daily range): BP systolic 99–121; BP diastolic 62–77; PULSE 88–98; RESP 18–20; TEMP 36.9–37.7; O2SAT 95–97
[2021-05-28] MEDS: vancomycin 1,000 MG in sodium chloride 0.9% 250 ML 250 MG IV ×2 (04:15→17:06)
[2021-05-28 05:46] LABS: Basophils % 0.3 %; Eosinophils # 0.1 10^3/uL (0.0-0.8); Hematocrit 29.7 % (42.0-52.0); Hemoglobin 9.1 g/dL (11.7-16.6); Lymphocytes # 2.1 10^3/uL (0.8-4.8); Lymphocytes % 16.1 %; Mean Corpuscular HGB Conc 30.6 g/dL (30.0-36.0); Mean Corpuscular Hemoglobin 27.4 pg (28.0-34.0); Mean Corpuscular Volume 89.5 fl (80-94); Mean Platelet Volume 10.5 fL (7.4-10.4); Monocytes # 0.6 10^3/uL (0.2-0.9); Monocytes % 4.4 %; Neutrophils # 9.74 10^3/uL (1.8-7.7); Neutrophils % 76.8 %; Nucleated Red Blood Cells % 0 %; Platelet Count 108 10^3/cmm (130-400); Red Blood Count 3.32 10^6/uL (4.1-5.3); Red Cell Distribution Width 15.6 % (12.1-15.1); White Blood Count 12.7 10^3/uL (4.0-10.0)
[2021-05-28 06:17] LABS: NT Pro B Type Natriuretic Pept 3413 pg/mL (0-125); Procalcitonin 7.89 ng/mL (0-0.5)
[2021-05-28 06:28] LABS: Alanine Aminotransferase 6 U/L (0-41); Albumin Level 2.2 g/dL (3.5-5.2); Alkaline Phosphatase 86 IU/L (40-130); Anion Gap 11.1 (5-19); Aspartate Amino Transferase 9 U/L (0-40); Blood Urea Nitrogen 5 mg/dL (6-20); C Reactive Protein 120.5 mg/L (0.0-4.9); Calcium 7.1 mg/dL (8.5-10.5); Carbon Dioxide 22 mmol/L (22-29); Chloride 109 mmol/L (98-107); Globulin 2.4 g/dL (1.3-4.6); Glomerular Filtration Rate 498.9 mL/min (90-130); Glucose 103 mg/dL (65-115); Magnesium 1.8 mg/dL (1.7-2.3); Osmolality Calculated 286 mOsm/kg (285-295); Phosphorus 2.1 mg/dL (2.5-4.5); Potassium 3.1 mmol/L (3.5-5.1); Sodium 139 mmol/L (136-145); Total Bilirubin 0.5 mg/dL (0.15-1.2); Total Protein 4.6 g/dL (6.6-8.7)
[2021-05-28] MEDS: aspirin 81 mg EC Tablet PO (08:37)
[2021-05-28] MEDS: midodrine 5 mg TABLET 10 MG PO ×3 (08:37→21:40)
[2021-05-28] MEDS: pantoprazole DR 40 mg Tablet PO ×2 (08:38→17:15)
--- NOTE | 2021-05-28 11:23 | CT_ITS ---
WS: [id number] NONCONTRAST CT LEFT HIP TECHNIQUE: Noncontrast CT left hip with coronal and sagittal reformatted images. CLINICAL INFORMATION: left hip thigh dti COMPARISON: None. DLP: 2627.[address] scans at [facility] use at least one of these dose optimization techniques: automated e xposure control; mA and/or kV adjustment per patient size (includes targeted exams where dose is matc hed to clinical indication); or iterative reconstruction. FINDINGS: Moderate degenerative arthritis left hip with joint space narrowing. Normal femoral neck. Normal acet abulum. Normal pubic rami. No acute fractures. Suprapubic catheter. Left dorsal hip soft tissue edema with decubitus ulcer. Decubitus ulcer measures 4.0 x 2.1 CM. Induration and inflammatory stranding in the underlying soft tissues. No evidence of d rainable abscess or fluid collection. No evidence of osteomyelitis. Ulcer extends approximately 2.[address]/CT hip LT wo con* [id number] IMPRESSION: 1. Left posterior hip decubitus ulcer measures approximately 2 cm deep and 4.0 cm transverse. 2. No evidence of drainable abscess or fluid collection. Induration and edema in the underlying soft tissues compatible with cellulitis. 3. No evidence of osteomyelitis. 4. Decubitus ulcer extends approximately 1.5 cm from the underlying posterior lateral femur
--- NOTE | 2021-05-28 11:23 | CT_ITS ---
WS: [id number] NONCONTRAST CT OF THE LEFT FEMUR TECHNIQUE: Noncontrast CT of the left femur with coronal and sagittal reformatted images. CLINICAL INFORMATION: left thigh/hip dti, with tunneling COMPARISON: None. DLP: 1133.[address] scans at [facility] use at least one of these dose optimization techniques: automated e xposure control; mA and/or kV adjustment per patient size (includes targeted exams where dose is matc hed to clinical indication); or iterative reconstruction. FINDINGS: Again seen is the left posterior hip decubitus ulcer as previously described. No drainable abscess or fluid collection. Associated cellulitis. No osteomyelitis. No evidence of drainable abscess or fluid collection in the mid or distal thigh. No evidence of osteomyelitis. No acute fractures. Slight inci dental chronic bowing deformity mid femur. Suprapubic catheter. CT/CT femur LT wo con* [id number] IMPRESSION: 1. No evidence of drainable abscess or fluid collection in the mid to distal t high. 2. Unchanged left posterior hip decubitus ulcer as previously described. No dr eddy abscess or fluid collection. Associated cellulitis. 3. No evidence of osteomyelitis.
[2021-05-28] MEDS: docusate sodium 100 mg Capsule PO (14:40)
--- NOTE | 2021-05-28 16:05 | P.PN_ITS ---
Subjective Subjective: Interval history: Patient was seen this morning, continues to have low-grade fevers overnight, sinus tachycardia, is on room air, I was able to communicate with patient and his using a Micronesian swatch cutter later, patient was able to say he is feeling much better, he had a bowel movement overnight, no vomiting episodes Vitals/I&O/Wt Last Vital Signs Temp 99.2 F 05/28/21 11:40 Pulse 98 05/28/21 11:40 Resp 18 05/28/21 11:40 BP 110/71 05/28/21 11:40 Pulse Ox 96 05/28/21 11:40 05/28/21 05/28/21 05/28/21 06:59 14:59 22:59 Intake Total 100 / 1054.7489 859.718 / 859.454 295.7762 / 1068.8089 Balance 100 / 1054.7489 859.718 / 859.760 654.6822 / 1068.8089 Weight last 48 hrs Weight 71.758 kg Weight 68.266 kg Physical Exam Const: COMMON NORMALS: no acute distress ORIENTATION/CONSCIOUSNESS: Yes awake and Yes oriented to person Resp: COMMON NORMALS: normal respiratory effort, No retractions, No use of accessory muscles and clear to auscultation bilaterally AUSCULTATION: clear to auscultation bilaterally Cardio: COMMON NORMALS: regular rate, regular rhythm, S1 normal heart sound present and S2 normal heart sound present RATE: regular rate RHYTHM: regular rhythm HEART SOUNDS: S1 normal heart sound present and S2 normal heart sound present GI: COMMON NORMALS: Normal to inspection, nondistended, normoactive bowel sounds present, Soft to palpation and non-tender PALPATION: Yes Soft to palpation Extremity: NARRATIVE EXTREMITY EXAM: 1+ pitting edema Flexion contractures of upper extremities Prefers to lean to the right Neuro: SENSORIUM/ORIENTATION: Yes oriented to person OTHER: Alert, can follow some commands, can say a few words Skin: OTHER: Left thigh, 1 x 2 x 1 cm deep DTI, with some serosanguineous discharge some granulation tissue Data : 05/28/21 05:08 05/28/21 05:08 Micro: Microbiology 05/25/21 17:30 Blood Culture - Final Blood Serratia marcescens 05/25/21 17:24 Blood Culture - Final Blood Serratia marcescens 05/27/21 04:27 Blood Culture - Preliminary Blood NEGATIVE TO DATE 05/27/21 04:27 Blood Culture - Preliminary Blood NEGATIVE TO DATE 05/25/21 16:40 Urine Culture - Final Urine,Clean Catch Xenia sharma 05/27/21 11:10 Occult Blood (FIT) - Final Stool Routine Collection A&P Assessment and plan (1) Septic shock: Secondary to UTI, left pyelonephritis, gram-negative bacteremia Has a suprapubic catheter in place, replaced by the ER CT of the abdomen and pelvis shows: ilateral renal pelvis stones again noted. No significant interval change of a 7 mm linear stone in the right renal pelvis. The other stone in the right renal pelvis appears less conspicuous than on prior study measuring up to 5 mm in size, previously 7 mm. The largest stone in the left renal pelvis measures 9 mm, appears less bulky than on previous examination. No significant interval change of the additional 7 mm stone in the left renal pelvis. There is mild urothelial thickening at the left renal pelvis. Mild asymmetric left perinephric stranding is noted. Discussed with urology service, if patient continues to have persistent fever, persistent sepsis, then will consider stent placement Follow identification of blood cultures, urine culture shows Serratia Currently on vancomycin and Primaxin On midodrine 10 3 times daily Plan for today, consult surgery for DTI, will do CT to determine how deep, continue antibiotic therapy, continue vancomycin for cellulitis, monitor mentation Status: Acute (2) Elevated troponin: Elevated Troponin with Significant delta : Likely type II [place] from sepsis. Continue aspirin, statin Cardiac echocardiogram 1-Normal left ventricular cavity size. Normal left ventricular systolic function. No regional wall motion abnormalities. Left ventricular ejection fraction is estimated at 60 %. Normal diastolic function. 2-There is no pericardial effusion. 3-Pulmonary artery systolic pressure is within normal limits. 4-No significant valve abnormalities. 5-Right atrial pressure is around 5 mm of mercury. 6-There are no prior echocardiogram studies to compare. Telemetry Status: Acute (3) Neurogenic bladder: Has existing suprapubic catheter. Was exchanged by ER Status: Acute (4) Multiple sclerosis: Status: Acute (5) UTI (urinary tract infection): Status: Acute (6) Gram-negative bacteremia: Status: Acute (7) Deep tissue injury: -Patient has deep tissue injury, left hip, measuring 1 x 2 cm, round, deep by 1 cm -Has some granulation tissue, I can see some slight serosanguineous discharge -Currently receiving wet-to-dry dressing -Continue wet-to-dry dressing, wound care, continue to monitor -Continue to redistribute pressure -Some evidence of tunneling today, will do CT scan -Consult surgery service -Continue vancomycin for surrounding cellulitis concerns -nutrition consult Status: Acute (8) Pyelonephritis of left kidney: Status: Acute (9) Acute on chronic anemia: -Hemoglobin down to 9.1, acute on chronic anemia -Likely component related to sepsis -However we will do iron studies, B12, folate Hemoccult stool -Protonix 40 twice daily Status: Acute Additional A&P Information Hypokalemia, hypomagnesemia, hypophosphatemia, will replace today Attestations Medical Necessity Statement*: Patient requires hospitalization for gram- negative bacteremia, UTI, pyelonephritis, UTI, anemia Coding Level of Care Code Acute Tool Maintenance Technician for [facility] Fwd Diagnoses Septic shock A41.9; R65.21 Elevated troponin R77.8 Neurogenic bladder N31.9 Multiple sclerosis G35 UTI (urinary tract infection) N39.0 Gram-negative bacteremia R78.81 Deep tissue injury T14.8XXA Pyelonephritis of left kidney N12 Acute on chronic anemia D64.9
--- NOTE | 2021-05-28 17:16 | PM.CONSULT ---
Providers/Reason For Consult Consulting Physician/Specialty*: General Surgery Tomas Antonio MD Reason for Consult*: Left hip open wound evaluation. Attending Physician: Erasto Glez MD Primary Care Provider: Gaby Martines MD History of Present Illness History of Present Illness Delvin Mittal is a 55 year old male currently being treated for sepsis secondary to a urinary tract infection. He has a family member here but she speaks limited Swiss and appears to only speak Cook Islander for the most part. He is nonverbal so I cannot get a good history as to how long this wound has been present and what its history has been. Review of Systems General: Reports: ROS unobtainable due to medical condition Meds/Allergies Home Medications and Allergies Home Medications Medication Instructions Recorded Confirmed Last Taken Type bisacodyl 5 mg tablet 5 mg PO DAILY 09/14/19 05/25/21 05/25/21 History hydrocortisone acetate 1 % rectal See Rx Instructions .ROUTE 09/14/19 05/25/21 04/12/21 History cream .COMPLEX PRN omega-3 fatty acids 1,000 mg 1,000 mg PO DAILY cap 09/14/19 05/25/21 05/24/21 History capsule triamcinolone acetonide 0.025 % 1 applic TOPICAL BID 09/14/19 05/25/21 Unknown History topical cream zinc gluconate 50 mg PO DAILY #30 tab 04/17/21 05/25/21 05/25/21 Rx Allergies Allergy/AdvReac Type Severity Reaction Status Date / Time latex Allergy UNKNOWN Verified 05/07/21 08:57 Current Medications Current Medications Generic Name Dose Route Start Last Admin Trade Name Freq PRN Reason Stop Dose Admin Acetaminophen 650 mg 05/25/21 19:12 05/26/21 20:37 Acetaminophen 325 Mg Tablet PO 650 mg Q6H PRN Administration MILD PAIN Aspirin 81 mg 05/27/21 09:00 05/28/21 08:37 Aspirin 81 Mg Ec Tablet PO 81 mg DAILY TEE Administration Atorvastatin Calcium 40 mg 05/27/21 21:00 05/27/21 21:55 Atorvastatin 40 Mg Tablet PO 40 mg BEDTIME TEE Administration Bisacodyl 5 mg 05/26/21 09:00 05/28/21 08:38 Bisacodyl 10 Mg Supp NJ Not Given DAILY TEE Docusate Sodium 100 mg 05/25/21 19:09 05/28/21 14:40 Docusate Sodium 100 Mg Capsule PO 100 mg DAILY PRN Administration CONSTIPATION Imipenem/Cilastatin Sodium 500 100 mls @ 200 mls/hr 05/25/21 19:15 05/28/21 15:24 mg/ Sodium Chloride IV Infused Q6H TEE Infusion Protocol Vancomycin HCl 1,000 mg/ 250 mls @ 250 mls/hr 05/28/21 05:00 05/28/21 17:06 Sodium Chloride IV 250 mls/hr Q12H TEE Administration Protocol As Directed Midodrine 10 mg 05/27/21 09:00 05/28/21 14:40 Midodrine 5 Mg Tablet PO 10 mg TID TEE Administration Pantoprazole Sodium 40 mg 05/27/21 09:00 05/28/21 17:[address] 40 Mg Tablet PO 40 mg BID TEE Administration PFSH Acute PFSH: Medical History (Updated 05/28/21 @ 17:18 by Tomas Antonio MD) Chronic constipation Multiple sclerosis History of Neurogenic bladder Urinary retention Surgical History Chronic suprapubic catheter Status post cholecystectomy Family History Other Pancreatic cancer Social History Smoking and tobacco status: never smoked Alcohol intake: never Caregiver/support person: Yes Marital status: Vitals/I&O/Wt Last Vital Signs Temp 98.5 F 05/28/21 16:00 Pulse 91 05/28/21 16:00 Resp 18 05/28/21 16:00 BP 116/77 05/28/21 16:00 Pulse Ox 97 05/28/21 16:00 05/28/21 05/28/21 05/28/21 06:59 14:59 22:59 Intake Total 100 / 1054.7489 859.718 / 1068.8089 209.0909 / 1068.8089 Balance 100 / 1054.7489 859.718 / 1068.8089 209.0909 / 1068.8089 Weight last 48 hrs Weight 158 lb 3.2 oz Weight 150 lb 8 oz Physical Exam Narrative: EXAM NARRATIVE: The patient's left hip region was examined. He has an open wound measuring perhaps 3 cm at the skin surface with some extension into the subcutaneous fat. There is a tunnel that travels medially and slightly inferiorly that is somewhat narrow. This was probed with a sterile swab and appears to track about 3 cm from the wound edge. The entire wound was repacked with wet-to-dry gauze. Data Micro: Micro: Microbiology 05/25/21 17:30 Blood Culture - Fi nal Blood Serratia marckylah cens 05/25/21 17:24 Blood Culture - Fi nal Blood Serratia marckylah cens 05/27/21 04:27 Blood Culture - Pr eliminary Blood NEGATIVE TO EILEEN E 05/27/21 04:27 Blood Culture - Pr eliminary Blood NEGATIVE TO EILEEN E 05/25/21 16:40 Urine Culture - Fi nal Urine,Clean Catch Xenia petit cens 05/27/21 11:10 Occult Blood (FIT) - Final Stool Routine Col lection Imaging^: Other CT: Radiologist's impression: CT left hip 05/28/2021 IMPRESSION: 1. Left posterior hip decubitus ulcer measures approximately 2 cm deep and 4.0 cm transverse. 2. No evidence of drainable abscess or fluid collection. Induration and edema in the underlying soft tissues compatible with cellulitis. 3. No evidence of osteomyelitis. 4. Decubitus ulcer extends approximately 1.5 cm from the underlying posterior lateral femur A&P Assessment and plan (1) Decubitus ulcer of left hip, stage 3: This appears to be a stage III wound with a short area of tunneling but the entire wound looks quite clean. It is currently being dressed with wet-to-dry dressings and gauze packing in the short tunnel, which I think can be continued. There is no obvious need for debridement at this time. Status: Acute Consult Attestations Medical Necessity Statement: See admitting service's notation. Coding Level of Care Code Acute Claims Service Representative for [facility] Diagnoses Decubitus ulcer of left hip, stage 3 L89.223
[2021-05-28] MEDS: atorvastatin 40 mg Tablet PO (21:40)
[2021-05-29] MEDS: lanolin oint 7 gm 1 APPLIC TOPICAL (03:09)
[2021-05-29 03:56] VITALS: BP 108/70; PULSE 89; RESP 16; TEMP 37.4; O2SAT 96
[2021-05-29 04:16] LABS: Basophils % 0.5 %; Eosinophils # 0.2 10^3/uL (0.0-0.8); Eosinophils % 1.8 %; Hematocrit 29.8 % (42.0-52.0); Hemoglobin 9.3 g/dL (11.7-16.6); Lymphocytes # 2.1 10^3/uL (0.8-4.8); Lymphocytes % 24.6 %; Mean Corpuscular HGB Conc 31.2 g/dL (30.0-36.0); Mean Corpuscular Hemoglobin 27.8 pg (28.0-34.0); Mean Platelet Volume 10.3 fL (7.4-10.4); Monocytes # 0.6 10^3/uL (0.2-0.9); Monocytes % 7.3 %; Neutrophils # 5.38 10^3/uL (1.8-7.7); Neutrophils % 63.7 %; Nucleated Red Blood Cells % 0 %; Platelet Count 121 10^3/cmm (130-400); Red Blood Count 3.35 10^6/uL (4.1-5.3); Red Cell Distribution Width 15.6 % (12.1-15.1); White Blood Count 8.5 10^3/uL (4.0-10.0)
[2021-05-29 04:39] LABS: Alanine Aminotransferase < 5 U/L (0-41); Albumin Level 2.2 g/dL (3.5-5.2); Alkaline Phosphatase 72 IU/L (40-130); Anion Gap 9.8 (5-19); Aspartate Amino Transferase 7 U/L (0-40); Blood Urea Nitrogen 5 mg/dL (6-20); C Reactive Protein 52.5 mg/L (0.0-4.9); Calcium 7.1 mg/dL (8.5-10.5); Carbon Dioxide 24 mmol/L (22-29); Chloride 109 mmol/L (98-107); Globulin 2.5 g/dL (1.3-4.6); Glomerular Filtration Rate 312.4 mL/min (90-130); Glucose 165 mg/dL (65-115); Magnesium 1.6 mg/dL (1.7-2.3); Osmolality Calculated 291 mOsm/kg (285-295); Phosphorus 2.7 mg/dL (2.5-4.5); Sodium 140 mmol/L (136-145); Total Bilirubin 0.4 mg/dL (0.15-1.2); Total Protein 4.7 g/dL (6.6-8.7)
[2021-05-29 04:42] LABS: Vancomycin Trough 10.5 ug/mL (10-15)
[2021-05-29] MEDS: vancomycin 1,000 MG in sodium chloride 0.9% 250 ML 250 MG IV ×2 (04:49→16:49)
[2021-05-29 04:51] LABS: NT Pro B Type Natriuretic Pept 2087 pg/mL (0-125); Procalcitonin 3.44 ng/mL (0-0.5)
[2021-05-29 04:55] LABS: Potassium 2.8 mmol/L (3.5-5.1)
[2021-05-29 07:47] VITALS: BP 120/78; PULSE 96; RESP 15; TEMP 37.4; O2SAT 96
[2021-05-29] MEDS: lidocaine 1% 5 ML in potassium chloride premix 100 ML 25 ML IV ×2 (09:16→14:05)
[2021-05-29] MEDS: enoxaparin 40 mg/0.4 mL Syringe SUBCUT (09:16)
[2021-05-29] MEDS: magnesium sulfate premix 2 GM/50 ML PIGGYBACK IV (09:16)
[2021-05-29] MEDS: midodrine 5 mg TABLET 10 MG PO ×3 (09:17→21:22)
[2021-05-29] MEDS: aspirin 81 mg EC Tablet PO (09:17)
[2021-05-29] MEDS: bisacodyl 10 mg Supp 5 MG PR (09:17)
[2021-05-29] MEDS: pantoprazole DR 40 mg Tablet PO ×2 (09:17→17:36)
[2021-05-29 11:30] VITALS: BP 125/79; PULSE 86; RESP 16; TEMP 36.7; O2SAT 97
--- NOTE | 2021-05-29 15:15 | P.PN_ITS ---
Subjective Subjective: Interval history: Patient was seen this morning, was febrile up to 99.9 overnight, normotensive, patient was seen in the presence of his , using [place]andan monorail charger operator, patient will say that he is doing fine, smiles at me, tells me that he is doing better, she gives him 1 protein shake a day, I discussed patient's Serratia marcescens bacteremia with UTI and pyelonephritis and sepsis, continues to have low-grade fevers, but remains normotensive, so thus will defer any stent placement, unless he starts to develop worsening fevers or hemodynamic instability then we can certainly discuss with Dr. Cedeno. He also has a lateral decubitus ulcer, no evidence of tunneling, seen by general surgery service, with surrounding cellulitis, he is on antibiotics, but he will require aggressive wound care to ensure that it does not tunnel or spread, patient's tells me that he has extensive family that will help take care of him Vitals/I&O/Wt Last Vital Signs Temp 98.0 F 05/29/21 11:30 Pulse 86 05/29/21 11:30 Resp 16 05/29/21 11:30 BP 125/79 05/29/21 11:30 Pulse Ox 97 05/29/21 11:30 05/29/21 05/29/21 05/29/21 06:59 14:59 22:59 Intake Total 100 / 1818.8089 985 / 985 100 / 1085 Output Total 600 / 1400 Balance -500 / 418.8089 985 / 985 100 / 1085 Weight last 48 hrs Weight 71.758 kg Physical Exam Const: COMMON NORMALS: no acute distress ORIENTATION/CONSCIOUSNESS: Yes awake and Yes oriented to person Resp: COMMON NORMALS: normal respiratory effort, No retractions, No use of accessory muscles and clear to auscultation bilaterally AUSCULTATION: clear to auscultation bilaterally Cardio: COMMON NORMALS: regular rate, regular rhythm, S1 normal heart sound present and S2 normal heart sound present RATE: regular rate RHYTHM: regular rhythm HEART SOUNDS: S1 normal heart sound present and S2 normal heart sound present GI: COMMON NORMALS: Normal to inspection, nondistended, normoactive bowel sounds present, Soft to palpation and non-tender PALPATION: Yes Soft to palpation Extremity: COMMON NORMALS: no pedal edema NARRATIVE EXTREMITY EXAM: 1+ pitting edema Prefers to lean to the right Neuro: SENSORIUM/ORIENTATION: Yes oriented to person OTHER: Alert, can follow some commands, can say a few words Skin: OTHER: Left thigh, 1 x 2 x 1 cm deep DTI, no evidence of necrotic tissue Data : 05/29/21 04:03 05/29/21 04:03 Micro: Microbiology 05/25/21 17:30 Blood Culture - Final Blood Serratia marcescens 05/25/21 17:24 Blood Culture - Final Blood Serratia marcescens A&P Assessment and plan (1) Septic shock: Secondary to UTI, left pyelonephritis, gram-negative bacteremia Has a suprapubic catheter in place, replaced by the ER CT of the abdomen and pelvis shows: ilateral renal pelvis stones again noted. No significant interval change of a 7 mm linear stone in the right renal pelvis. The other stone in the right renal pelvis appears less conspicuous than on prior study measuring up to 5 mm in size, previously 7 mm. The largest stone in the left renal pelvis measures 9 mm, appears less bulky than on previous examination. No significant interval change of the additional 7 mm stone in the left renal pelvis. There is mild urothelial thickening at the left renal pelvis. Mild asymmetric left perinephric stranding is noted. Discussed with urology service, if patient continues to have persistent fever, persistent sepsis, then will consider stent placement Follow identification of blood cultures, urine culture shows Serratia, repeat blood cultures negative Pro-Chester 3.44, CRP 52.5 Currently on vancomycin and Primaxin, will continue for now, consider de- escalating to Cipro in the next 24 to 48 hours On midodrine 10 3 times daily Plan for today, continue antibiotic therapy, continue to encourage oral intake, monitor deep tissue injury, plan to discharge the next 24 to 48 hours Status: Acute (2) Elevated troponin: Elevated Troponin with Significant delta : Likely type II [place] from sepsis. Continue aspirin, statin Cardiac echocardiogram 1-Normal left ventricular cavity size. Normal left ventricular systolic function. No regional wall motion abnormalities. Left ventricular ejection fraction is estimated at 60 %. Normal diastolic function. 2-There is no pericardial effusion. 3-Pulmonary artery systolic pressure is within normal limits. 4-No significant valve abnormalities. 5-Right atrial pressure is around 5 mm of mercury. 6-There are no prior echocardiogram studies to compare. Telemetry Status: Acute (3) Neurogenic bladder: Has existing suprapubic catheter. Was exchanged by ER Status: Acute (4) Multiple sclerosis: Status: Acute (5) UTI (urinary tract infection): Status: Acute (6) Gram-negative bacteremia: Status: Acute (7) Deep tissue injury: -Patient has deep tissue injury, left hip, measuring 1 x 2 cm, round, deep by 1 cm -Has some granulation tissue, I can see some slight serosanguineous discharge -Currently receiving wet-to-dry dressing -Continue wet-to-dry dressing, wound care, continue to monitor -Continue to redistribute pressure -CT scan shows: Left posterior hip decubitus ulcer measures approximately 2 cm deep and 4.0 cm transverse, Decubitus ulcer extends approximately 1.5 cm from the underlying posterior lateral femur -Consult surgery service -Continue vancomycin for surrounding cellulitis concerns -nutrition consult Status: Acute (8) Pyelonephritis of left kidney: Status: Acute (9) Acute on chronic anemia: -Hemoglobin down to 9.1, acute on chronic anemia -Likely component related to sepsis -However we will do iron studies, B12, folate Hemoccult stool -Protonix 40 twice daily Status: Acute Additional A&P Information Hypokalemia, hypomagnesemia, hypophosphatemia, will replace today Encourage oral intake of protein shakes Attestations Medical Necessity Statement*: Patient requires hospitalization for sepsis secondary to pyelonephritis, Serratia marcescens bacteremia, DTI Coding Level of Care Code Acute Computational Biologist for g Fwd Diagnoses Septic shock A41.9; R65.21 Elevated troponin R77.8 Neurogenic bladder N31.9 Multiple sclerosis G35 UTI (urinary tract infection) N39.0 Gram-negative bacteremia R78.81 Deep tissue injury T14.8XXA Pyelonephritis of left kidney N12 Acute on chronic anemia D64.9
[2021-05-29 15:35] VITALS: BP 119/80; PULSE 87; RESP 15; TEMP 37; O2SAT 98
[2021-05-29 20:00] VITALS: BP 117/74; PULSE 96; RESP 16; TEMP 36.8; O2SAT 98
[2021-05-29] MEDS: atorvastatin 40 mg Tablet PO (21:22)
[2021-05-30] VITALS: BP 127/79; PULSE 87; RESP 16; TEMP 37.8; O2SAT 97
[2021-05-30] MEDS: acetaminophen 325 mg Tablet 650 MG PO (00:25)
[2021-05-30 04:00] VITALS: BP 124/80; PULSE 84; RESP 16; TEMP 37.2; O2SAT 97
[2021-05-30] MEDS: vancomycin 1,000 MG in sodium chloride 0.9% 250 ML 250 MG IV (05:05)
[2021-05-30 05:12] LABS: Basophils % 0.4 %; Eosinophils # 0.2 10^3/uL (0.0-0.8); Eosinophils % 2.5 %; Hematocrit 31.6 % (42.0-52.0); Hemoglobin 9.7 g/dL (11.7-16.6); Lymphocytes # 3.1 10^3/uL (0.8-4.8); Lymphocytes % 38.1 %; Mean Corpuscular HGB Conc 30.7 g/dL (30.0-36.0); Mean Corpuscular Hemoglobin 27.5 pg (28.0-34.0); Mean Corpuscular Volume 89.5 fl (80-94); Monocytes # 0.7 10^3/uL (0.2-0.9); Monocytes % 9.1 %; Neutrophils # 3.54 10^3/uL (1.8-7.7); Neutrophils % 43.6 %; Nucleated Red Blood Cells % 0 %; Platelet Count 169 10^3/cmm (130-400); Red Blood Count 3.53 10^6/uL (4.1-5.3); Red Cell Distribution Width 15.3 % (12.1-15.1); White Blood Count 8.1 10^3/uL (4.0-10.0)
[2021-05-30 05:28] LABS: Alanine Aminotransferase < 5 U/L (0-41); Albumin Level 2.4 g/dL (3.5-5.2); Alkaline Phosphatase 79 IU/L (40-130); Anion Gap 9.9 (5-19); Aspartate Amino Transferase 8 U/L (0-40); Blood Urea Nitrogen 6 mg/dL (6-20); Calcium 7.6 mg/dL (8.5-10.5); Carbon Dioxide 24 mmol/L (22-29); Chloride 110 mmol/L (98-107); Globulin 2.7 g/dL (1.3-4.6); Glomerular Filtration Rate 312.4 mL/min (90-130); Glucose 94 mg/dL (65-115); Magnesium 1.8 mg/dL (1.7-2.3); Osmolality Calculated 287 mOsm/kg (285-295); Phosphorus 2.4 mg/dL (2.5-4.5); Potassium 3.9 mmol/L (3.5-5.1); Sodium 140 mmol/L (136-145); Total Bilirubin 0.4 mg/dL (0.15-1.2); Total Protein 5.1 g/dL (6.6-8.7)
[2021-05-30 06:15] LABS: Slide Review Slide Review Perform
[2021-05-30 08:00] VITALS: BP 131/95; PULSE 97; RESP 16; TEMP 36.8; O2SAT 97
[2021-05-30] MEDS: midodrine 5 mg TABLET 10 MG PO (08:56)
[2021-05-30] MEDS: aspirin 81 mg EC Tablet PO (08:56)
[2021-05-30] MEDS: pantoprazole DR 40 mg Tablet PO ×2 (08:56→17:23)
[2021-05-30] MEDS: enoxaparin 40 mg/0.4 mL Syringe SUBCUT (08:56)
[2021-05-30 12:00] VITALS: BP 121/78; PULSE 89; RESP 16; TEMP 36.9; O2SAT 93
--- NOTE | 2021-05-30 16:51 | PM.PN ---
Subjective Subjective: Interval history: Patient was seen this morning, is at bedside, using a Jamaican precision crop manager, he tells me he is doing good, he did have low-grade fever overnight 100.1, he has no complaints Vitals/I&O/Wt Last Vital Signs Temp 98.4 F 05/30/21 12:00 Pulse 89 05/30/21 12:00 Resp 16 05/30/21 12:00 BP 121/78 05/30/21 12:00 Pulse Ox 93 05/30/21 12:00 05/30/21 05/30/21 05/30/21 06:59 14:59 22:59 Intake Total 350 / 1890 580 / 580 Output Total 1550 / 2850 500 / 500 Balance -1200 / -960 80 / 80 Weight last 48 hrs Weight 68.606 kg Physical Exam Const: COMMON NORMALS: no acute distress GENERAL APPEARANCE: cooperative ORIENTATION/CONSCIOUSNESS: Yes awake and Yes oriented to person Resp: COMMON NORMALS: normal respiratory effort, No retractions, No use of accessory muscles and clear to auscultation bilaterally AUSCULTATION: clear to auscultation bilaterally Cardio: COMMON NORMALS: regular rate, regular rhythm, S1 normal heart sound present and S2 normal heart sound present RATE: regular rate RHYTHM: regular rhythm HEART SOUNDS: S1 normal heart sound present and S2 normal heart sound present GI: COMMON NORMALS: Normal to inspection, nondistended, normoactive bowel sounds present, Soft to palpation and non-tender PALPATION: Yes Soft to palpation Extremity: COMMON NORMALS: no pedal edema Neuro: SENSORIUM/ORIENTATION: Yes oriented to person Skin: OTHER: Left thigh, 1 x 2 x 1 cm deep DTI, no evidence of necrotic tissue Data : 05/30/21 04:42 05/30/21 04:42 Micro: Microbiology 05/30/21 15:15 Blood Culture - Preliminary Blood SPECIMEN COLLECTED 05/30/21 15:00 Blood Culture - Preliminary Blood SPECIMEN COLLECTED 05/28/21 15:45 MRSA Culture - Final Nose A&P Assessment and plan (1) Septic shock: Secondary to UTI, left pyelonephritis, gram-negative bacteremia Has a suprapubic catheter in place, replaced by the ER CT of the abdomen and pelvis shows: ilateral renal pelvis stones again noted. No significant interval change of a 7 mm linear stone in the right renal pelvis. The other stone in the right renal pelvis appears less conspicuous than on prior study measuring up to 5 mm in size, previously 7 mm. The largest stone in the left renal pelvis measures 9 mm, appears less bulky than on previous examination. No significant interval change of the additional 7 mm stone in the left renal pelvis. There is mild urothelial thickening at the left renal pelvis. Mild asymmetric left perinephric stranding is noted. Discussed with urology service, if patient continues to have persistent fever, persistent sepsis, then will consider stent placement Follow identification of blood cultures, urine culture shows Serratia, repeat blood cultures negative De-escalate to Cipro 500 twice daily, doxycycline 100 twice daily Hold midodrine He does have 1 low-grade fever, central line in place, will remove central line, culture trip, blood culture from central line, monitor for fevers If he continues to have fevers and central line is not the source, he might require ureteral stent placement Plan for today, de-escalate antibiotic therapy, remove central line, culture the tip, blood from central line, monitor for fevers Status: Acute (2) Elevated troponin: Elevated Troponin with Significant delta : Likely type II [place] from sepsis. Continue aspirin, statin Cardiac echocardiogram 1-Normal left ventricular cavity size. Normal left ventricular systolic function. No regional wall motion abnormalities. Left ventricular ejection fraction is estimated at 60 %. Normal diastolic function. 2-There is no pericardial effusion. 3-Pulmonary artery systolic pressure is within normal limits. 4-No significant valve abnormalities. 5-Right atrial pressure is around 5 mm of mercury. 6-There are no prior echocardiogram studies to compare. Telemetry Status: Acute (3) Neurogenic bladder: Has existing suprapubic catheter. Was exchanged by ER Status: Acute (4) Multiple sclerosis: Status: Acute (5) UTI (urinary tract infection): Status: Acute (6) Gram-negative bacteremia: Status: Acute (7) Deep tissue injury: -Patient has deep tissue injury, left hip, measuring 1 x 2 cm, round, deep by 1 cm -Has some granulation tissue, I can see some slight serosanguineous discharge -Currently receiving wet-to-dry dressing -Continue wet-to-dry dressing, wound care, continue to monitor -Continue to redistribute pressure -CT scan shows: Left posterior hip decubitus ulcer measures approximately 2 cm deep and 4.0 cm transverse, Decubitus ulcer extends approximately 1.5 cm from the underlying posterior lateral femur -Consult surgery service -De-escalate to doxycycline -nutrition consult Status: Acute (8) Pyelonephritis of left kidney: Status: Acute (9) Acute on chronic anemia: -Hemoglobin down to 9.7, acute on chronic anemia -Likely component related to sepsis -However we will do iron studies, B12, folate Hemoccult stool -Protonix 40 twice daily Status: Acute Additional A&P Information Hypokalemia, hypomagnesemia, hypophosphatemia, monitor Encourage oral intake of protein shakes Attestations Medical Necessity Statement*: Patient requires hospitalization for pyelonephritis, UTI, sepsis, DTI, persistent fevers Coding Level of Care Code Acute Traffic Routing Engineer for g Fwd Diagnoses Septic shock A41.9; R65.21 Elevated troponin R77.8 Neurogenic bladder N31.9 Multiple sclerosis G35 UTI (urinary tract infection) N39.0 Gram-negative bacteremia R78.81 Deep tissue injury T14.8XXA Pyelonephritis of left kidney N12 Acute on chronic anemia D64.9
[2021-05-30] MEDS: doxycycline 100 mg Tablet PO (17:23)
--- NOTE | 2021-05-30 18:51 | P.CONIM_ITS ---
Providers/Reason For Consult Consulting Physician/Specialty*: Urology/Cedeno Reason for Consult*: Bilateral UPJ stones with refractory UTI Attending Physician: Earsto Glez MD Primary Care Provider: Gaby Martines MD History of Present Illness History of Present Illness Delvin Mittal is a 55 year old male well-known to me with a history of multiple sclerosis and severe debilitation from that disease. He has a chronic indwelling suprapubic tube which we changed on a regular basis in the clinic. Was recently diagnosed with having bilateral UPJ stones and a UTI. He is improved dramatically clinically from septic shock related to the UTI but he still having some febrile episodes. Ultimately I was requested to consider bilateral ureteral stents because of the stones and the refractory nature of his symptoms. We will plan on that on 05/31/2021. Review of Systems Card: Denies: chest pain Resp: Denies: productive cough : Reports: other (Chronic suprapubic tube) Musc: Reports: decrease in muscle mass Skin/Breast: Reports: other (Decubitus) Neuro: Reports: other (Multiple sclerosis related quadriplegia) Psych: Reports: depression Trevor/Lymph: Denies: easy bruising or easy bleeding Meds/Allergies Home Medications and Allergies Home Medications Medication Instructions Recorded Confirmed Last Taken Type bisacodyl 5 mg tablet 5 mg PO DAILY 09/14/19 05/25/21 05/25/21 History hydrocortisone acetate 1 % rectal See Rx Instructions .ROUTE 09/14/19 05/25/21 04/12/21 History cream .COMPLEX PRN omega-3 fatty acids 1,000 mg 1,000 mg PO DAILY cap 09/14/19 05/25/21 05/24/21 History capsule triamcinolone acetonide 0.025 % 1 applic TOPICAL BID 09/14/19 05/25/21 Unknown History topical cream zinc gluconate 50 mg PO DAILY #30 tab 04/17/21 05/25/21 05/25/21 Rx Allergies Allergy/AdvReac Type Severity Reaction Status Date / Time latex Allergy UNKNOWN Verified 05/07/21 08:57 Current Medications Current Medications Generic Name Dose Route Start Last Admin Trade Name Freq PRN Reason Stop Dose Admin Acetaminophen 650 mg 05/25/21 19:12 05/30/21 00:25 Acetaminophen 325 Mg Tablet PO 650 mg Q6H PRN Administration MILD PAIN Aspirin 81 mg 05/27/21 09:00 05/30/21 08:56 Aspirin 81 Mg Ec Tablet PO 81 mg DAILY TEE Administration Atorvastatin Calcium 40 mg 05/27/21 21:00 05/29/21 21:22 Atorvastatin 40 Mg Tablet PO 40 mg BEDTIME TEE Administration Bisacodyl 5 mg 05/26/21 09:00 05/30/21 08:56 Bisacodyl 10 Mg Supp MN Not Given DAILY TEE Docusate Sodium 100 mg 05/25/21 19:09 05/28/21 14:40 Docusate Sodium 100 Mg Capsule PO 100 mg DAILY PRN Administration CONSTIPATION Doxycycline Monohydrate 100 mg 05/30/21 18:00 05/30/21 17:23 Doxycycline 100 Mg Tablet PO 100 mg BID TEE Administration Protocol Enoxaparin Sodium 40 mg 05/29/21 08:45 05/30/21 08:56 Enoxaparin 40 Mg/0.4 Ml Syringe SUBCUT 40 mg Q24H TEE Administration Lanolin 1 applic 05/29/21 02:27 05/29/21 03:09 Lanolin Oint 7 Gm TOPICAL 1 applic PRN PRN Administration DRYNESS Pantoprazole Sodium 40 mg 05/27/21 09:00 05/30/21 17:[address] 40 Mg Tablet PO 40 mg BID TEE Administration PFSH Acute PFSH: Medical History Bilateral renal stones Chronic constipation Multiple sclerosis History of Neurogenic bladder Urinary retention Surgical History Chronic suprapubic catheter Status post cholecystectomy Family History Other Pancreatic cancer Social History Smoking and tobacco status: never smoked Alcohol intake: never Caregiver/support person: Yes Marital status: Vitals/I&O/Wt Last Vital Signs Temp 98.4 F 05/30/21 12:00 Pulse 89 05/30/21 12:00 Resp 16 05/30/21 12:00 BP 121/78 05/30/21 12:00 Pulse Ox 93 05/30/21 12:00 05/30/21 05/30/21 05/30/21 06:59 14:59 22:59 Intake Total 350 / 1890 580 / 580 240 / 820 Output Total 1550 / 2850 500 / 500 300 / 800 Balance -1200 / -960 80 / 80 -60 / 20 Weight last 48 hrs Weight 151 lb 4 oz Physical Exam Narrative: EXAM NARRATIVE: Does not speak Palestinian. Essentially noncommunicative due to very weak speech from multiple sclerosis deterioration. HENMT: COMMON NORMALS: normocephalic and atraumatic HEAD & SCALP: normocephalic and atraumatic Resp: COMMON NORMALS: No retractions EFFORT & INSPECTION: No tachypneic and No respiratory distress Cardio: COMMON NORMALS: regular rate and regular rhythm RATE: regular rate RHYTHM: regular rhythm GI: OTHER: Suprapubic tube and lower midline abdomen Neuro: OTHER: Quadriplegia Psych: COMMON NORMALS: cooperative MOOD & AFFECT: Yes depressed mood Data Micro: Micro: Microbiology 05/30/21 15:15 Blood Culture - Pr eliminary Blood SPECIMEN [facility] 05/30/21 15:00 Blood Culture - Pr eliminary Blood SPECIMEN [facility] 05/28/21 15:45 MRSA Culture - Fin al Nose A&P Assessment and plan (1) Pyelonephritis of left kidney: Status: Acute (2) Bilateral renal stones: Because of the refractory nature of his infection I recommended consideration for bilateral ureteral stents. Once the infection is cleared then we can consider endoscopic treatment of the stones for ESWL. It would likely take more than 1 treatment based on the bulk of the stones as well as the like lihood cleaning out his bladder if stone fragments remain post treatment. He does have chronic suprapubic tube that would not be adequate for draining any stones out of his bladder. Status: Acute (3) Neurogenic bladder: Status: Acute (4) Urinary retention: Status: Acute (5) Chronic suprapubic catheter: Status: Acute Consult Attestations Medical Necessity Statement: See attending Coding Level of Care Code Acute Pumper Gauger Apprentice for Rona Machuca Diagnoses Pyelonephritis of left kidney N12 Bilateral renal stones N20.0 Neurogenic bladder N31.9 Urinary retention R33.9 Chronic suprapubic catheter Z93.59
[2021-05-30 20:00] VITALS: BP 129/85; PULSE 102; RESP 16; TEMP 37.2; O2SAT 98
[2021-05-30] MEDS: atorvastatin 40 mg Tablet PO (21:03)
[2021-05-30 22:00] VITALS: PULSE 94
[2021-05-31] VITALS (14 sets, daily range): BP systolic 118–143; BP diastolic 70–92; PULSE 90–106; RESP 14–18; TEMP 36.2–37.1; O2SAT 96–100
--- NOTE | 2021-05-31 | SCC_ITS ---
Procedure Done: 1. Cystoscopy bilateral ureteral stent placement 25.7 seconds of fluoroscopic guidance, for a cumulative dose of 3.91 mGy, was provided to Dr. Cedeno by the radiology department. C-arm images of the abdomen were saved for the patient's permanent record. [facility]
[2021-05-31 05:57] LABS: Basophils # 0.1 10^3/uL (0.0-0.1); Basophils % 0.8 %; Eosinophils # 0.2 10^3/uL (0.0-0.8); Eosinophils % 3.1 %; Hematocrit 33.8 % (42.0-52.0); Hemoglobin 10.5 g/dL (11.7-16.6); Lymphocytes # 3.5 10^3/uL (0.8-4.8); Lymphocytes % 44.7 %; Mean Corpuscular HGB Conc 31.1 g/dL (30.0-36.0); Mean Corpuscular Hemoglobin 27.8 pg (28.0-34.0); Mean Corpuscular Volume 89.4 fl (80-94); Mean Platelet Volume 9.9 fL (7.4-10.4); Monocytes # 0.8 10^3/uL (0.2-0.9); Monocytes % 9.7 %; Neutrophils # 2.55 10^3/uL (1.8-7.7); Neutrophils % 32.9 %; Nucleated Red Blood Cells % 0 %; Platelet Count 224 10^3/cmm (130-400); Red Blood Count 3.78 10^6/uL (4.1-5.3); Red Cell Distribution Width 15.2 % (12.1-15.1); White Blood Count 7.7 10^3/uL (4.0-10.0)
[2021-05-31 06:05] LABS: Slide Review Slide Review Perform
[2021-05-31 06:10] LABS: Alanine Aminotransferase < 5 U/L (0-41); Albumin Level 2.6 g/dL (3.5-5.2); Alkaline Phosphatase 85 IU/L (40-130); Blood Urea Nitrogen 7 mg/dL (6-20); C Reactive Protein 18.5 mg/L (0.0-4.9); Calcium 7.7 mg/dL (8.5-10.5); Carbon Dioxide 23 mmol/L (22-29); Chloride 107 mmol/L (98-107); Globulin 3.1 g/dL (1.3-4.6); Glomerular Filtration Rate 498.9 mL/min (90-130); Glucose 100 mg/dL (65-115); Magnesium 1.7 mg/dL (1.7-2.3); Osmolality Calculated 288 mOsm/kg (285-295); Sodium 140 mmol/L (136-145); Total Bilirubin 0.5 mg/dL (0.15-1.2); Total Protein 5.7 g/dL (6.6-8.7)
[2021-05-31 06:12] LABS: Anion Gap 13.6 (5-19); Aspartate Amino Transferase 9 U/L (0-40); Potassium 3.6 mmol/L (3.5-5.1)
[2021-05-31] MEDS: doxycycline 100 mg Tablet PO ×2 (08:34→17:51)
[2021-05-31] MEDS: aspirin 81 mg EC Tablet PO (08:34)
[2021-05-31] MEDS: pantoprazole DR 40 mg Tablet PO ×2 (08:34→17:51)
--- NOTE | 2021-05-31 10:19 | P.PN_ITS ---
Subjective Subjective: Interval history: Patient was seen this morning, is at bedside, Haitian parts representative was used, patient states that he continues to have fevers, he has not had a bowel movement, he has been n.p.o. over midnight, explained that we have removed his central line, we have cultured his state, repeated blood culture so far negative, continues to feel unwell, have low-grade fevers, so the plan is to have Dr. Cedeno place bilateral ureteral stents to treat the source of infection which is infected kidney stones bilaterally, patient's voiced understanding, all questions answered Vitals/I&O/Wt Last Vital Signs Temp 98.8 F 05/31/21 07:36 Pulse 97 05/31/21 07:36 Resp 16 05/31/21 07:36 BP 121/80 05/31/21 07:36 Pulse Ox 97 05/31/21 07:36 05/30/21 05/31/21 05/31/21 22:59 06:59 14:59 Intake Total 340 / 920 160 / 1080 100 / 100 Output Total 300 / 800 Balance 40 / 120 160 / 280 100 / 100 Weight last 48 hrs Weight 67.84 kg Weight 68.606 kg Physical Exam Const: COMMON NORMALS: no acute distress ORIENTATION/CONSCIOUSNESS: Yes awake and Yes oriented to person Chest: COMMONS NORMALS: normal inspection of the chest Resp: COMMON NORMALS: normal respiratory effort, No retractions, No use of accessory muscles and clear to auscultation bilaterally AUSCULTATION: clear to auscultation bilaterally Cardio: COMMON NORMALS: regular rate, regular rhythm, S1 normal heart sound present and S2 normal heart sound present RATE: regular rate RHYTHM: regular rhythm HEART SOUNDS: S1 normal heart sound present and S2 normal heart sound present GI: COMMON NORMALS: Normal to inspection, nondistended, normoactive bowel sounds present, Soft to palpation and non-tender PALPATION: Yes Soft to palpation Extremity: COMMON NORMALS: no pedal edema Neuro: SENSORIUM/ORIENTATION: Yes oriented to person Skin: OTHER: Left thigh, 1 x 2 x 1 cm deep DTI, no evidence of necrotic tissue Data : 05/31/21 05:47 05/31/21 05:05 Micro: Microbiology 05/30/21 15:15 Blood Culture - Preliminary Blood SPECIMEN COLLECTED 05/30/21 15:00 Blood Culture - Preliminary Blood SPECIMEN COLLECTED A&P Assessment and plan (1) Septic shock: Secondary to UTI, left pyelonephritis, gram-negative bacteremia Has a suprapubic catheter in place, replaced by the ER CT of the abdomen and pelvis shows: ilateral renal pelvis stones again noted. No significant interval change of a 7 mm linear stone in the right renal pelvis. The other stone in the right renal pelvis appears less conspicuous than on prior study measuring up to 5 mm in size, previously 7 mm. The largest stone in the left renal pelvis measures 9 mm, appears less bulky than on previous examination. No significant interval change of the additional 7 mm stone in the left renal pelvis. There is mild urothelial thickening at the left renal pelvis. Mild asymmetric left perinephric stranding is noted. Discussed with urology service, if patient continues to have persistent fever, persistent sepsis, then will consider stent placement Follow identification of blood cultures, urine culture shows Serratia, repeat blood cultures negative Currently on doxycycline 100 twice a day, and Primaxin Hold midodrine Central line has been removed, tip has been cultured, repeat blood cultures, Dr. Cedeno on consult, plan on possible bilateral stent placement for infected nephrolithiasis Plan for today, follow cultures, stent placement, hopefully can be discharged t he next 24 hours if cultures remain unremarkable remains afebrile Status: Acute (2) Elevated troponin: Elevated Troponin with Significant delta : Likely type II [place] from sepsis. Continue aspirin, statin Cardiac echocardiogram 1-Normal left ventricular cavity size. Normal left ventricular systolic function. No regional wall motion abnormalities. Left ventricular ejection fraction is estimated at 60 %. Normal diastolic function. 2-There is no pericardial effusion. 3-Pulmonary artery systolic pressure is within normal limits. 4-No significant valve abnormalities. 5-Right atrial pressure is around 5 mm of mercury. 6-There are no prior echocardiogram studies to compare. Telemetry Status: Acute (3) Neurogenic bladder: Has existing suprapubic catheter. Was exchanged by ER Status: Acute (4) Multiple sclerosis: Status: Acute (5) UTI (urinary tract infection): Status: Acute (6) Gram-negative bacteremia: Status: Acute (7) Deep tissue injury: -Patient has deep tissue injury, left hip, measuring 1 x 2 cm, round, deep by 1 cm -Has some granulation tissue, no discharge today -Currently receiving wet-to-dry dressing -Continue wet-to-dry dressing, wound care, continue to monitor -Continue to redistribute pressure -CT scan shows: Left posterior hip decubitus ulcer measures approximately 2 cm deep and 4.0 cm transverse, Decubitus ulcer extends approximately 1.5 cm from the underlying posterior lateral femur -Consult surgery service -De-escalate to doxycycline -nutrition consult Status: Acute (8) Pyelonephritis of left kidney: Status: Acute (9) Acute on chronic anemia: -Hemoglobin down to 10.5 acute on chronic anemia -Likely component related to sepsis -However we will do iron studies, B12, folate Hemoccult stool -Protonix 40 twice daily Status: Acute Additional A&P Information Hypokalemia, hypomagnesemia, hypophosphatemia, monitor Encourage oral intake of protein shakes Attestations Medical Necessity Statement*: Patient requires hospitalization for sepsis secondary to bilateral nephrolithiasis, concerns for infected kidney stones, pyelonephritis Coding Level of Care Code Acute Street And Building Decorator for Chg Fwd Diagnoses Septic shock A41.9; R65.21 Elevated troponin R77.8 Neurogenic bladder N31.9 Multiple sclerosis G35 UTI (urinary tract infection) N39.0 Gram-negative bacteremia R78.81 Deep tissue injury T14.8XXA Pyelonephritis of left kidney N12 Acute on chronic anemia D64.9
--- NOTE | 2021-05-31 13:34 | PC.CHAP ---
Pastoral Care Encounter/Spiritual Assessment Type of Contact [] Declined supervisor landscape visit [] Patient/Family/Request visit [] Outpatient visit [xx] Follow-up visit [] Physician referral [] Code/Alert [] Routine visit [] Staff referral [] Actively dying [] Patient sleeping [] Family support [] [] Out of room [] Palliative care [] [xx] Receiving care in room [] Pre-surgical visit [] Trauma [xx] Long length of stay [] ICU visit [] Other: Relational/Emotional Strength [] Patient feels connected with others/family/visitors/staff [] Distress [] Loneliness/isolation [] Abandonment Spirituality of Patient [] Person of Jia [] Attends Caodaism of their Jia [] Believes in Prayer [] Reads Bible or Mosque materials [] There are Spiritual issues to be addressed Social Media Marketing Analyst Interventions [] Prayer [] Active listening [] Non-anxious presence [] Spiritual/emotional support [] Crisis/trauma care [] Spiritual counseling [] Bereavement support [] Provided bereavement packet [] Provided Bible/devotional materials [] Provided toy/stuffed animal, coloring book to patient or family member [] Provided Communion [] Anointing/[place] [] Salvation [] Completed spiritual assessment [] Other: Impact on Illness or Injury [] Angry [] Fearful [] Anxious [] Often cries [] Exhaustion [] Unable to work [] Unable to attend orthodox [] Unable to walk/stand [] Unable to read [] Unable to drive [] Unable to eat/drink [] Unable to sleep [] Unable to be with family [] Patient intubated [] Other: Summary Patient was receiving medical care in room. Try another follow up later. Time spent with patient 1 minute
--- NOTE | 2021-05-31 14:04 | ANES.PREANE2 ---
Pre-Anesthetic Assessment Pre-Anesthetic Assessment: Height/Weight: Height 1.75 m Weight 67.84 kg Temp Pulse Resp BP Pulse Ox 97.8 F 95 18 143/89 98 05/31/21 13:12 05/31/21 13:12 05/31/21 13:12 05/31/21 13:12 05/31/21 13:12 Proposed Procedure: Operation Date: 05/31/21 14:15 Proposed Procedures p Cystoscopy with bilateral stents(Not Applicable) - Bo Cedeno MD s Ureteral Stent Placement(Bilateral) - Bo Cedeno MD Was Beta Bam taken within 24 hours: N/A Was Clonidine taken within 24 hours: N/A Social: Social History: No alcohol and No tobacco Exam: Additional Exam Findings (including area of procedure): Used British fashion artist for this evaluation; hard to hear 2/2 to service was sketchy; pt has MS and unable to communicate except for few words in senegalese Pulmonary: Comments: Hx COVID CV/HEM: CV/HEM: Anemia : Comments: Kidney stones and sepsis 2/2 to stones Musc/skel: Comments: Severe MS; bedridden, has not ambulated in years Neuropsych: Comments: Has MS unable to communicate except few senegalese words Anesthetic Plan: ASA status: 4 Anesthesia: Choice Risk of > 500 ml blood loss (7ml/kg in children): No Meds/Allergies Current Medications: Current Medications Generic Name Dose Route Start Last Admin Trade Name Freq PRN Reason Stop Dose Admin Acetaminophen 650 mg 05/25/21 19:12 05/30/21 00:25 Acetaminophen 32 5 Mg Tablet PO 650 mg Q6H PRN Administration MILD PAIN Aspirin 81 mg 05/27/21 09:00 05/31/21 08:34 Aspirin 81 Mg Ec Tablet PO 81 mg DAILY TEE Administration Atorvastatin Calci um 40 mg 05/27/21 21:00 05/30/21 21:03 Atorvastatin 40 Mg Tablet PO 40 mg BEDTIME TEE Administration Bisacodyl 5 mg 05/26/21 09:00 05/31/21 08:34 Bisacodyl 10 Mg Supp FL Not Given DAILY TEE Docusate Sodium 100 mg 05/25/21 19:09 05/28/21 14:40 Docusate Sodium 100 Mg Capsule PO 100 mg DAILY PRN Administration CONSTIPATION Doxycycline Monohy drate 100 mg 05/30/21 18:00 05/31/21 08:34 Doxycycline 100 Mg Tablet PO 100 mg BID TEE Administration Protocol Enoxaparin Sodium 40 mg 05/29/21 08:45 05/30/21 08:56 Enoxaparin 40 Mg /0.4 Ml Syringe SUBCUT 40 mg Q24H TEE Administration Imipenem/Cilastati n Sodium 500 100 mls @ 200 mls /hr 05/30/21 19:30 05/31/21 09:38 mg/ Sodium Chlor marek IV Infused Q6H TEE Infusion Protocol Lanolin 1 applic 05/29/21 02:27 05/29/21 03:09 Lanolin Oint 7 G m TOPICAL 1 applic PRN PRN Administration DRYNESS Pantoprazole Sodiu m 40 mg 05/27/21 09:00 05/31/21 08:[address] 40 Mg Tablet PO 40 mg BID TEE Administration PFSH Anesthesia PFSH: Medical History (Updated 05/30/21 @ 18:54 by Bo Cedeno MD) Bilateral renal stones Chronic constipation Multiple sclerosis History of Neurogenic bladder Urinary retention Surgical History Chronic suprapubic catheter Status post cholecystectomy Family History Other Pancreatic cancer Social History Smoking and tobacco status: never smoked Alcohol intake: never Caregiver/support person: Yes Marital status: Data Anesthesia CBC & Chem 7: 05/31/21 05:47 05/31/21 05:05 Other Labs: Laboratory Results - last 48 hr 05/30/21 05/30/21 05/31/21 04:42 04:42 05:05 WBC 8.1 Corrected WBC RBC 3.53 L Hgb 9.7 L Hct 31.6 L MCV 89.5 MCH 27.5 L MCHC 30.7 RDW 15.3 H Plt Count 169 D MPV 10.0 Gran % Neut % (Auto) 43.6 Lymph % (Auto) 38.1 [place] % (Auto) 9.1 Eos % (Auto) 2.5 Baso % (Auto) 0.4 Neut # (Auto) 3.54 Lymph # (Auto) 3.1 [place] # (Auto) 0.7 Eos # (Auto) 0.2 Baso # (Auto) 0.0 Absolute Gran (auto) Nucleated RBC % (auto) 0 Nucleated RBCs # 0.0 Sodium 140 140 Potassium 3.9 3.6 Chloride 110 H 107 Carbon Dioxide 24 23 Anion Gap 9.9 13.6 BUN 6 7 Creatinine 0.3 L 0.2 L GFR Calculation 312.4 H 498.9 H Glucose 94 100 Calculated Osmolality 287 288 Calcium 7.6 L 7.7 L Phosphorus 2.4 L 3.0 Magnesium 1.8 1.7 Total Bilirubin 0.4 0.5 AST 8 9 ALT < 5 < 5 Alkaline Phosphatase 79 85 C-Reactive Protein 18.5 H Total Protein 5.1 L 5.7 L Albumin 2.4 L 2.6 L Globulin 2.7 3.1 Procalcitonin 0.80 H 05/31/21 05/31/21 05:05 05:47 WBC Cancelled 7.7 Corrected WBC Cancelled RBC Cancelled 3.78 L Hgb Cancelled 10.5 L Hct Cancelled 33.8 L MCV Cancelled 89.4 MCH Cancelled 27.8 L MCHC Cancelled 31.1 RDW Cancelled 15.2 H Plt Count Cancelled 224 D MPV Cancelled 9.9 Gran % Cancelled Neut % (Auto) Cancelled 32.9 Lymph % (Auto) Cancelled 44.7 [place] % (Auto) Cancelled 9.7 Eos % (Auto) Cancelled 3.1 Baso % (Auto) Cancelled 0.8 Neut # (Auto) Cancelled 2.55 Lymph # (Auto) Cancelled 3.5 [place] # (Auto) Cancelled 0.8 Eos # (Auto) Cancelled 0.2 Baso # (Auto) Cancelled 0.1 Absolute Gran (auto) Cancelled Nucleated RBC % (auto) Cancelled 0 Nucleated RBCs # Cancelled 0.0 Sodium Potassium Chloride Carbon Dioxide Anion Gap BUN Creatinine GFR Calculation Glucose Calculated Osmolality Calcium Phosphorus Magnesium Total Bilirubin AST ALT Alkaline Phosphatase C-Reactive Protein Total Protein Albumin Globulin Procalcitonin Micro: Microbiology 05/30/21 15:15 Blood Culture - Preliminary Blood SPECIMEN COLLECTED 05/30/21 15:00 Blood Culture - Preliminary Blood SPECIMEN COLLECTED Cardiac Studies: Echocardiogram 05/27/21
--- NOTE | 2021-05-31 14:49 | SC_ITS ---
WS: [id number] C-arm fluoroscopy for ureteral stent placement Clinical Data: intra-op Comparison: None. Findings: Dr. Cedeno inserted bilateral ureteral stents. SC/C-arm FL for Urology Impression: Bilateral ureteral stents.
--- NOTE | 2021-05-31 15:44 | P.OP_ITS ---
Operative Report Date of procedure: May 31, 2021 Pre-op Diagnosis: UTI/sepsis, bilateral UPJ stones Post-op diagnosis: same Procedure Done: 1. Cystoscopy bilateral ureteral stent placement Implants: 26 cm 4.5 Zimbabwean bilateral ureteral stents Surgeon: Pao Estimated blood loss: Less than 5 cc Urine output: Not measured Complications: None Findings: Multiple levels of urethral stricture that were bypassable with a 16 Zimbabwean but not a 21 Zimbabwean cystoscope. A 4.5 Zimbabwean stent would go through the 17 Zimbabwean cystoscope and that was the size used based on that capacity. Condition: stable Disposition: PACU Brief History: Delvin is a very pleasant 55-year-old white male with severe multiple sclerosis and effective quadriplegia. He has a neurogenic bladder and has been maintained for quite some time with a suprapubic tube. Recently had a diagnosis of sepsis from UTI. Was found to have bilateral renal calculi both UPJ without clear Evidence of obstruction. He was placed on antibiotic therapy and improved but continued to have low-grade fevers and the concern was that there was not adequate drainage of his upper urinary tracts and for that reason I was asked to consider evaluation with stents. Procedure: After urgent evaluation examination and obtaining of informed consent he was taken to the operating suite on 05/31/2021 where MAC anesthesia was administered without difficulty. He was prepped and draped in usual sterile fashion in dorsolithotomy position being careful attention avoiding pressure points. He was unable to be in the usual position due to contractures but there was enough exposure to his genitalia up in stirrups that would allow safe positioning as well as access to the urethra. A 21 Zimbabwean cystoscope with 30 degree lens was introduced into the urethra meatus. Medially was obvious that there were multiple levels of stricture most of them but bypassable but in the deep bulbar urethra there was concern about possible creation of a false passage with trying and therefore the scope was switched out to a 17 Zimbabwean scope which was easily passed into the bladder. With the suprapubic tube occluded the bladder was filled. Both orifices were identified. No other gross abnormality seen. The suprapubic tube was in good position. Because of the size of the scope required to get into the urethra and bladder 4.5 Zimbabwean stents were selected. Flexible tip guidewire was advanced up the right ureter first into the area of the renal pelvis and the stent was passed without difficulty bypassing the renal pelvic stone. Position was confirmed to be appropriate via fluoroscopy and cystoscopy. The stent was shown to be draining. Same procedure was then performed on the left. Again position was confirmed and function was also confirmed. Because of the urethral stricture making it difficult to have complete access to the bladder it was decided to leave the catheter in for passive dilation of the urethral stricture in anticipation of further treatment via ureteroscopy soon after he recovers from the infection. Ureteroscopy will be to actually deal with each stone. Catheter was easily advanced and the balloon inflated with 10 cc. He tolerated the procedure well without complications and was awakened in the operating room and returned to the recovery room in stable condition. PLANS: 1. Return to the floor. Continue IV antibiotics. Consider intervention when stable for stones. May try next week as soon as feasible. 2. We will maintain urethral Platt catheter until surgery attempted.
[2021-05-31] MEDS: atorvastatin 40 mg Tablet PO (21:05)
[2021-06-01] VITALS: BP 124/80; PULSE 107; RESP 15; TEMP 36.6; O2SAT 97
[2021-06-01 03:31] VITALS: BP 125/80; PULSE 105; RESP 18; TEMP 37; O2SAT 97
[2021-06-01 05:20] LABS: Basophils % 0.3 %; Eosinophils # 0.2 10^3/uL (0.0-0.8); Eosinophils % 2.2 %; Hematocrit 33.9 % (42.0-52.0); Hemoglobin 10.7 g/dL (11.7-16.6); Lymphocytes # 3.2 10^3/uL (0.8-4.8); Lymphocytes % 32.8 %; Mean Corpuscular HGB Conc 31.6 g/dL (30.0-36.0); Mean Corpuscular Hemoglobin 27.7 pg (28.0-34.0); Mean Corpuscular Volume 87.8 fl (80-94); Mean Platelet Volume 9.7 fL (7.4-10.4); Neutrophils # 4.63 10^3/uL (1.8-7.7); Neutrophils % 48.1 %; Nucleated Red Blood Cells % 0 %; Platelet Count 323 10^3/cmm (130-400); Red Blood Count 3.86 10^6/uL (4.1-5.3); Red Cell Distribution Width 15.4 % (12.1-15.1); White Blood Count 9.6 10^3/uL (4.0-10.0)
[2021-06-01 05:54] LABS: Slide Review Slide Review Perform
[2021-06-01 05:55] LABS: Procalcitonin 0.46 ng/mL (0-0.5)
[2021-06-01 05:58] LABS: Alanine Aminotransferase < 5 U/L (0-41); Albumin Level 2.8 g/dL (3.5-5.2); Alkaline Phosphatase 95 IU/L (40-130); Anion Gap 12.7 (5-19); Aspartate Amino Transferase 9 U/L (0-40); Blood Urea Nitrogen 7 mg/dL (6-20); C Reactive Protein 19.6 mg/L (0.0-4.9); Carbon Dioxide 24 mmol/L (22-29); Chloride 105 mmol/L (98-107); Globulin 3.3 g/dL (1.3-4.6); Glomerular Filtration Rate 312.4 mL/min (90-130); Glucose 110 mg/dL (65-115); Magnesium 1.8 mg/dL (1.7-2.3); Osmolality Calculated 285 mOsm/kg (285-295); Phosphorus 2.7 mg/dL (2.5-4.5); Potassium 3.7 mmol/L (3.5-5.1); Sodium 138 mmol/L (136-145); Total Bilirubin 0.6 mg/dL (0.15-1.2); Total Protein 6.1 g/dL (6.6-8.7)
[2021-06-01 06:27] VITALS: BMI 24.5
[2021-06-01 07:22] VITALS: BP 132/82; PULSE 95; RESP 16; TEMP 37; O2SAT 97
[2021-06-01] MEDS: aspirin 81 mg EC Tablet PO (08:32)
[2021-06-01] MEDS: pantoprazole DR 40 mg Tablet PO (08:32)
[2021-06-01] MEDS: doxycycline 100 mg Tablet PO (08:32)
[2021-06-01] MEDS: bisacodyl 10 mg Supp 5 MG PR (08:32)
--- NOTE | 2021-06-01 11:35 | P.DS_ITS ---
Discharge Providers Date of Admission: 05/25/21 17:56 Date of Discharge: June 01, 2021 Attending Provider at Admission: Alejo Cheng MD Attending Provider at Discharge: Erasto Glez MD Primary Care Provider: Gaby Martines MD Diagnoses at Discharge Discharge Diagnosis (1) Pyelonephritis of left kidney: Status: Acute (2) Bilateral renal stones: Status: Acute (3) Neurogenic bladder: Status: Acute (4) Urinary retention: Status: Acute (5) Chronic suprapubic catheter: Status: Acute Reason for Visit Reason for Visit: NO URINARY OUTPUT X24 HOURS; DISTENDED ABD Hospital Course Hospital Course This is a 55-year-old male with a past medical history of severe debility from multiple sclerosis, neurogenic bladder, chronic suprapubic catheter, history of recurrent UTIs, recent history of Covid infection, recent history of UTI with sepsis, due to concerns for urinary retention, decreased urine output, abdominal discomfort Patient was admitted to [facility] for septic shock secondary to UTI, left pyelonephritis, Serratia marcescens bacteremia, with bilateral nephroli thiasis. Patient was managed with broad-spectrum antibiotic therapy, pressor therapy, he clinically improved, moved to the general medical floors. Overall patient clinically improved, however patient continued to have low-grade fevers, repeat blood cultures were unremarkable, central line was removed tip culture is negative so far given the presence of bilateral nephrolithiasis, there was concern for infected bilateral UPJ stones, the case was discussed with urology, patient underwent cystoscopy with bilateral ureteral stent placement, tolerated procedure well. Remained afebrile 48 hours before discharge, cultures do not show any growth so far, patient will be discharged with 7 remaining days of ciprofloxacin, with close follow-up with Dr. Cedeno as outpatient for removal of ureteral stents, he was also discharged with a Platt catheter in place, which will be removed as outpatient by Dr. Cedeno. Patient also was found to have a deep tissue injury of the left hip, no evidence of tunneling, no debridement required, had good granulation tissue, received wound care wet-to-dry dressings as inpatient, his is very involved in his care, remained at bedside throughout his hospitalization, she was taught how to do the dressing changes and helped with dressing changes throughout his hospitalization. Patient will be discharged with instructions to wet to dry dressing changes daily, monitoring the wound for signs of infection and cellulitis, to keep offload the left hip, and follow-up with wound care next week. I have discharged him on doxycycline for 7 remaining days. Also instructed on adequate nutrition, adequate protein, monitor for fevers. Physical Exam Const: COMMON NORMALS: no acute distress Resp: COMMON NORMALS: normal respiratory effort, No retractions, No use of accessory muscles and clear to auscultation bilaterally AUSCULTATION: clear to auscultation bilaterally Cardio: COMMON NORMALS: regular rate, regular rhythm, S1 normal heart sound present and S2 normal heart sound present RATE: regular rate RHYTHM: regular rhythm HEART SOUNDS: S1 normal heart sound present and S2 normal heart sound present GI: COMMON NORMALS: Normal to inspection, nondistended, normoactive bowel s ounds present and Soft to palpation PALPATION: Yes Soft to palpation Extremity: COMMON NORMALS: no pedal edema Skin: OTHER: Left thigh, 1 x 2 x 1 cm deep DTI, no evidence of necrotic tissue Urinary Catheter Management^: Platt: Cath Placed During This Visit: yes Reason for Continuing Indwelling Catheter: Acute Urinary Retention or Obstr uction Urinary Catheter Date of Insertion: 05/31/21 Urinary Catheter Time of Insertion: 15:44 Discharge Data Data Completed and Pending: Completed Studies During Hospitalization Category Date Time Status CT abdomen pelvis w con* [id number] Urge nt Cat Scan 05/25/21 13:[address] femur LT wo co n* [id number] Routine Cat Scan 05/28/21 11:[address] hip LT wo con* [id number] Routine Cat Scan 05/28/21 11:23 Completed XR chest 1V curtis ble [id number] Routine Exams 05/25/21 20:43 Completed XR chest 1V curtis ble [id number] Routine Exams 05/25/21 21:22 Completed XR chest 1V curtis ble [id number] Urgent Exams 05/25/21 15:13 Completed CV. echo complete * [id number] Routine Ultrasound 05/27/21 11:43 Completed Pending at discharge Category Date Time Status Blood Culture Sta t Lab 05/30/21 15:15 Results C Reactive Protei n AM LABS Lab 06/02/21 04:00 Ordered Complete Blood Co unt w/Auto AM LABS Lab 06/02/21 04:00 Ordered Complete Blood Co unt w/Auto AM LABS Lab 06/03/21 04:00 Ordered Comprehensive Met abolic Panel AM LA BS Lab 06/02/21 04:00 Ordered Comprehensive Met abolic Panel AM LA BS Lab 06/03/21 04:00 Ordered Procalcitonin AM LABS Lab 06/02/21 04:00 Ordered Labs from last 24 hours 06/01/21 06/01/21 04:50 04:50 WBC 9.6 RBC 3.86 L Hgb 10.7 L Hct 33.9 L MCV 87.8 MCH 27.7 L MCHC 31.6 RDW 15.4 H Plt Count 323 D MPV 9.7 Neut % (Auto) 48.1 Lymph % (Auto) 32.8 [place] % (Auto) 10.0 Eos % (Auto) 2.2 Baso % (Auto) 0.3 Neut # (Auto) 4.63 Lymph # (Auto) 3.2 [place] # (Auto) 1.0 H Eos # (Auto) 0.2 Baso # (Auto) 0.0 Nucleated RBC % (a uto) 0 Nucleated RBCs # 0.0 Sodium 138 Potassium 3.7 Chloride 105 Carbon Dioxide 24 Anion Gap 12.7 BUN 7 Creatinine 0.3 L GFR Calculation 312.4 H Glucose 110 Calculated Osmolal ity 285 Calcium 8.0 L Phosphorus 2.7 Magnesium 1.8 Total Bilirubin 0.6 AST 9 ALT < 5 Alkaline Phosphata se 95 C-Reactive Protein 19.6 H Total Protein 6.1 L Albumin 2.8 L Globulin 3.3 Procalcitonin 0.46 Vitals: Last Vital Signs Temp 98.6 F 06/01/21 07:22 Pulse 95 06/01/21 07:22 Resp 16 06/01/21 07:22 BP 132/82 06/01/21 07:22 Pulse Ox 97 06/01/21 07:22 Discharge Plan Discharge Patient Disposition: Home Condition: Stable Prescriptions: New ciprofloxacin HCl 500 mg tablet 500 mg PO BID 7 Days Qty: 14 RF: 0 doxycycline monohydrate 100 mg Tablet 100 mg PO BID 7 Days Qty: 14 RF: 0 Continued omega-3 fatty acids 1,000 mg capsule 1,000 mg PO DAILY RF: 0 Laxative (bisacodyl) 5 mg tablet 5 mg PO DAILY RF: 0 hydrocortisone acetate 1 % cream See Rx Instructions .ROUTE .COMPLEX PRN (Reason: UNKNOWN) RF: 0 triamcinolone acetonide 0.025 % cream 1 applic TOPICAL BID RF: 0 zinc gluconate 50 mg Tablet 50 mg PO DAILY Qty: 30 RF: 0 Discharge Orders: Discharge Order (Routine); Ordered 06/01/21 Ordered By: Bo Cedeno Referrals: Gaby Martines MD [Primary Care Provider] - 06/10/21 10:00 am Bo Cedeno MD [Physician] - 06/06/21 (post op check planning for bilateral ureteroscopy/laser) [facility], [Staff Physician] - 06/05/21 1:30 pm ([phone]) Patient Instructions: Opioid Safety Activity Restrictions/Additional Instructions: Urology follow-up: 1. Return to clinic on 06/06/2021 for planning of next surgical procedure, bilateral ureteroscopic laser lithotripsy. Anticipate early the following week. 2. Both the suprapubic and the urethral catheter need to remain in place. After the next procedure urethral catheter will be removed. -Please take antibiotics for the next 7 days -Please monitor for fevers, if so come back to the emergency room -For his bedsore on the left thigh, please continue repositioning, daily wet-to-dry dressing, gauze packing in the short tunnel, monitor for signs of infection if so go to the emergency room -Will refer to wound care Discharge Attestations Time Spent in Discharge Care*: less than 30 min Status at Discharge: Cognitive status at discharge: moderately impaired cognition , Behavioral status at discharge: cooperative , Quality Metrics Clinical Quality Measures During this hospital stay, did patient experience: None Coding Level of Care Code Acute Chg FW DC note Diagnoses Pyelonephritis of left kidney N12 Bilateral renal stones N20.0 Neurogenic bladder N31.9 Urinary retention R33.9 Chronic suprapubic catheter Z93.59
[2021-06-01 11:36] VITALS: BP 111/71; PULSE 101; RESP 16; TEMP 36.8; O2SAT 99
[2021-06-01 15:04] VITALS: BP 111/71; PULSE 101; RESP 16; TEMP 36.8; O2SAT 99
--- NOTE | 2021-06-05 09:28 | PC.SOCIAL ---
discharge follow up call made, multiple attempts, unable to reach patient, message left.
== END 2021-06-01 15:05 | disposition home or self-care (01) | DRG 853 ==
LOC: ER 17:55 → MEDSURG 18:09 → ICU 20:33 → MEDSURG 05-27 13:42
PROVIDERS: Urology; Admitting Provider Internal Medicine; Emergency Provider Emergency Medicine; PCP Family Medicine; Visit Provider Family Medicine
PROC: 0TJB8ZZ Inspection of Bladder, Via Natural or Artificial Opening Endoscopic (ICD-10-PCS; CPT 52000; principal; 2021-05-31 14:15)
PROC: 0T788DZ Dilation of Bilateral Ureters with Intraluminal Device, Via Natural or Artificial Opening Endoscopic (ICD-10-PCS; CPT 50605; 2021-05-31 14:15)
DX: A41.53 Sepsis due to Serratia (principal); L89.224 Pressure ulcer of left hip, stage 4; R65.21 Severe sepsis with septic shock; I21.A1 Myocardial infarction type 2; N39.0 Urinary tract infection, site not specified; N12 Tubulo-interstitial nephritis, not specified as acute or chronic; N20.2 Calculus of kidney with calculus of ureter; D64.9 Anemia, unspecified; B96.89 Other specified bacterial agents as the cause of diseases classified elsewhere; G35 Multiple sclerosis; N31.9 Neuromuscular dysfunction of bladder, unspecified; R33.9 Retention of urine, unspecified; R77.8 Other specified abnormalities of plasma proteins; E87.6 Hypokalemia; E83.42 Hypomagnesemia; E83.39 Other disorders of phosphorus metabolism; Z96.0 Presence of urogenital implants; Z86.16 Personal history of COVID-19; Z87.440 Personal history of urinary (tract) infections; Z74.01 Bed confinement status
CPT/HCPCS: 36415; 36592; 71045; 73700; 74177; 76000; 80048; 80053; 80202; 81001; 82274; 82607; 82728; 82746; 83540; 83550; 83605; 83735; 83880; 84100; 84145; 84443; 84484; 85025; 85045; 86140; 87040; 87070; 87075; 87077; 87086; 87186; 87205; 87641; 92610; 93005; 93306; 96365; 96367; 96372; 96375; 99291; C2625; J0743; J1650; J2270; J2543; J2704; J3010; J3370; J3475; J3480; J3490; J7030; J7040; J7050; Q9967

== ENCOUNTER 2021-06-10 13:16 | Day surgery (SDC) | payer MEDICAID, SELFPAY ==
[2021-06-07 11:52] VITALS: BMI 26.2
--- NOTE | 2021-06-07 12:06 | PC.NURSE ---
PHONE PRE OP DONE WITH DAUGHTER JONATHAN TRANSLATING WITH ME AND HER MOTHER FOR INFORMATION REGARDING PT
[2021-06-10] VITALS (7 sets, daily range): BP systolic 135–146; BP diastolic 84–94; PULSE 80–90; RESP 16–19; TEMP 36.2–37; O2SAT 97–100
--- NOTE | 2021-06-10 | SCC_ITS ---
Procedure Done: 1. Cystoscopy, BILATERAL: Stent removal, ureteroscopy, laser lithotripsy, stent replacement 2. Balloon dilation of suprapubic tube tract 70.5 seconds of fluoroscopic guidance, for a cumulative dose of 4.51 mGy, was provided to Dr. Cedeno by the radiology department. C-arm images of the abdomen were saved for the patient's permanent record. [facility]
--- NOTE | 2021-06-10 13:26 | XR_ITS ---
WS: [id number] KUB, AP view, 06/10/2021 Clinical Data: Preop bilateral ureteroscopy Comparison: Acute abdomen series, 11/18/2015. Findings: Bilateral ureteral stents are in position. There are calcifications overlying both kidneys. The largest calcification on the right is 1.0 cm and on the left 1.3 cm. There is a large amount of f ecal material in the rectum. XR/XR KUB [id number] Impression: 1. Bilateral ureteral stents. 2. Bilateral renal calcifications.
--- NOTE | 2021-06-10 15:01 | ANES.PREANE2 ---
Pre-Anesthetic Assessment Pre-Anesthetic Assessment: Height/Weight: Height 1.65 m Weight 71.668 kg Preop Diagnosis: Bilateral obstructing ureteral calculi, Status post stenting Proposed Procedure: Operation Date: 06/10/21 15:10 Proposed Procedures p Laser Lithotripsy 53170 36238 Z93.59(Not Applicable) - Bo Cedeno MD s Cystoscopy 11864 33869 Z93.59(Not Applicable) - Bo Cedeno MD s Ureteroscopy(Not Applicable) - Bo Cedeno MD s Ureteral Stent Placement(Not Applicable) - Bo Cedeno MD Was Beta Bam taken within 24 hours: N/A Was Clonidine taken within 24 hours: N/A Last intake: Intake Last Liquid Date 06/10/21 Last Liquid Time 08:30 Last Solid Date 06/08/21 Last Solid Time 10:00 Social: Social History: No alcohol and No tobacco Exam: Pre-Anes Outpt Exam: alert, oriented x 3, clear to auscultation bilaterally and regular rate & rhythm Airway: Submandibular: WNL Cervical ROM: WNL MP: 2 Dentition: False CV/HEM: CV/HEM: Anemia Musc/skel: Musc/skel: Weakness Comments: Severe MS, bedridden Anesthetic Plan: ASA status: 3 Anesthesia: General Risk of > 500 ml blood loss (7ml/kg in children): No PFSH Anesthesia PFSH: Medical History (Updated 06/06/21 @ 13:31 by Bo Cedeno MD) Bilateral renal stones Bilateral ureteral calculi Chronic constipation Multiple sclerosis History of Neurogenic bladder Urinary retention Surgical History Chronic suprapubic catheter Status post cholecystectomy Family History Other Pancreatic cancer Social History Smoking and tobacco status: never smoked Alcohol intake: never Caregiver/support person: Yes Marital status: Data Anesthesia Cardiac Studies: Echocardiogram 05/27/21
[2021-06-10] MEDS: sodium chloride 0.9% 1,000 ML 30 ML IV (15:03)
--- NOTE | 2021-06-10 16:12 | P.HPUD_ITS ---
Surgery/Procedure H&P Update DATE OF PROCEDURE: June 10, 2021 DATE H&P PERFORMED: 06/06/21 H&P UPDATE INFORMATION: I have reviewed H&P completed within last 30 days, I have examined patient prior to procedure, No changes to prior documentation and H&P is in [facility] on date indicated PREOP DIAGNOSIS: Bilateral obstructing ureteral calculi with UTI, Status post stenting PLANNED PROCEDURE: Operation Date: 06/10/21 15:10 Proposed Procedures p Laser Lithotripsy 79970 04097 Z93.59(Not Applicable) - Bo Cedeno MD s Cystoscopy 65324 82517 Z93.59(Not Applicable) - Bo Cedeno MD s Ureteroscopy(Not Applicable) - Bo Cedeno MD s Ureteral Stent Placement(Not Applicable) - Bo Cedeno MD
--- NOTE | 2021-06-10 16:12 | W.PM.OPSUD ---
Surgery/Procedure H&P Update DATE OF PROCEDURE: June 10, 2021 DATE H&P PERFORMED: 06/06/21 H&P UPDATE INFORMATION: I have reviewed H&P completed within last 30 days, I have examined patient prior to procedure, No changes to prior documentation and H&P is in [facility] EMR on date indicated PREOP DIAGNOSIS: Bilateral obstructing ureteral calculi with UTI, Status post stenting PLANNED PROCEDURE: Operation Date: 06/10/21 15:10 Proposed Procedures p Laser Lithotripsy 48232 66152 Z93.59(Not Applicable) - Bo Cedeno MD s Cystoscopy 52805 09012 Z93.59(Not Applicable) - Bo Cedeno MD s Ureteroscopy(Not Applicable) - oB Cedeno MD s Ureteral Stent Placement(Not Applicable) - Bo Cedeno MD
--- NOTE | 2021-06-10 16:40 | PM.OP ---
Operative Report Date of procedure: June 10, 2021 Pre-op Diagnosis: Bilateral obstructing ureteral calculi with UTI, Status post stenting Post-op diagnosis: same Procedure Done: 1. Cystoscopy, BILATERAL: Stent removal, ureteroscopy, laser lithotripsy, stent replacement 2. Balloon dilation of suprapubic tube tract Implants: Bilateral ureteral stents Pathology: Stone fragments Surgeon: Pao Anesthesia: MAC Urine output: Not measured Brief History: Found to Tad is a very pleasant but unfortunate 55-year-old white male with severe debilitating multiple sclerosis was recently hospitalized with UTI and obstructing (partially) proximal ureteral stones. Stents were placed and he recovered well. He is back now for attempt at definitive treatment of both sides. Endoscopic treatment was selected over ESWL with the hope of trying to get all the stone fragments out since he is catheter dependent via suprapubic tube. He is also had problems with his suprapubic tube tract becoming partially stenosed over time making it difficult to change the suprapubic tube. He uses a silicone catheter due to latex allergy and is required a special coud? tip silicone catheter for placement. We talked about assessing the suprapubic tube site to see if there was any stricture that could be dilated while we were in under anesthesia. Procedure: After routine preoperative evaluation examination and obtaining of informed consent he was taken to the operating suite on 06/10/2021 where general anesthesia was administered without difficulty after appropriate timeout was performed, SCDs confirmed to be functioning, preoperative antibiotics administered, beta-yazmin protocol confirmed. Prepped and draped in the usual sterile fashion in dorsolithotomy position paying careful attention to avoiding pressure points. He had a lot of contractures of the positioning was somewhat suboptimal but access to the genitalia was adequate. He had had a Platt catheter placed at the stent placement due to some intrinsic narrowing of the urethra and the catheter was left indwelling in order to cause passive dilation to make this procedure easier as far as accessing the ureters. The urethra was nicely dilated was easy to pass the scope into the bladder. A flexible tip guidewire was advanced up the right ureter next to the stent and the stent was then removed with grasping forceps after confirmation of the wires position. A second guidewire was placed and a 38 cm ureteral access sheath was advanced over the guidewire to just below the level of the UPJ The flexible digital ureteroscope was utilized and passed over the second wire into the renal pelvis and the wire was removed. The renal pelvis was irrigated clear. There is a lot of bloody dark fluid in the renal pelvis. 2 stones were identified as expected and were fragmented with a 200 ?m thulium superpulse laser fiber into very small fragments sand and dust. Much of this was basketed out with a X catch basket. Final inspection showed no large fragments no active bleeding. The access sheath was backed down to the hub of the scope and the ureter was inspected as the scope was removed. The ureter appeared to be healthy. Cystoscope was then backloaded over the guidewire and a 7 Botswanan by 26 cm double-pigtail stent was advanced over the guidewire through the cystoscope into appropriate position as confirmed via fluoroscopy and cystoscopy. Attention was then directed to the LEFT ureter. A flexible tip guidewire was then passed up next to the left ureteral stent the stent grasped and removed. A second wire was then passed and the first wire was used as a safety wire secured to the drapes with a hemostat. Over the working wire a 38 cm ureteral access sheath was again advanced easily to just below the UPJ. Scope was passed over this wire into the renal pelvis and the wire removed. Some irrigation was required to get good visualization. Again there were 2 stones seen in the largest was about twice the size of the smaller and was bigger than the other stones on the other side. For this 2 stones a 365 ?m thulium superpulse laser fiber was utilized which led to more timely fragmentation. Of smaller stone was pushed into one of the calyces posteriorly which made it easy to focus fragmentation without a lot of fragments spreading out. When that was completed some of the fragments were basketed but most of it was just sand. The larger stone was then pushed posteriorly over one of the posterior calyces and was also fragment in similar fashion. Large amount of sand dust and very small fragments were reduced and these were partially flushed and partially basketed. On final inspection I could not see any significant fragments. Hemostasis was good. Cystoscope was then backloaded over the guidewire and a 7 Botswanan by 26 cm double-pigtail stent was advanced over the guidewire through the cystoscope into appropriate position as confirmed via fluoroscopy and cystoscopy The suprapubic tube was then changed to an 18 Botswanan silicone coud? catheter in the urethra was drained temporarily with a 16 Botswanan silicone catheter. This was a protracted procedure and much more arduous than the typical stones treated with ureteroscopy. Ultimately it appeared to be very successful bilaterally. We will make a decision after recovery to see if he is a candidate for home care tonight postop. I know his was hoping to do that but we will see how he is doing. He was stable throughout the procedure with no untoward events. Remained hemodynamically stable as well PLANS: 1. Likely discharge from outpatient surgery 2. Can have home health nursing remove the Platt catheter from the urethra in 24 to 48 hours. Irrigate as needed 3. Follow-up in 2 weeks with [facility]. May require some further work to clean out any fragments that remain since he can spontaneously void.
[2021-06-10] MEDS: levofloxacin-dextrose 5 % 500 MG/100 ML PREMIX 100 MG IV (17:09)
--- NOTE | 2021-06-10 17:26 | SC_ITS ---
WS: [id number] C-arm [facility] for Urology REASON FOR EXAM: SURGICAL PROCEDURE FINDINGS: Previous CT scan 05/25/2021 demonstrates large calculus near the left UPJ J with obstructive uropathy. Cannulation and retrograde stent placement left kidney. No contrast injection. SC/C-arm [facility] for Urology IMPRESSION: Left ureteral stent placement.
--- NOTE | 2021-06-10 20:04 | ANE.PACU2 ---
Inpatient post-anesthesia follow up: Airway intact: Yes Vital signs: Temperature Pulse Rate Respiratory Rate Blood Pressure Pulse Oximetry Oxygen Delivery Me thod Room Air Oxygen Flow Rate Fraction of Inspir ed Oxygen Hydration adequate: Yes Nausea and vomiting: No Pain level: 1 Mental status: Baseline
--- NOTE | 2021-06-10 20:08 | SUR.PHASEI ---
2002 patient to pacu at this time from OR at this time. rr even and unlabored. parker cath in place, sinha colored urine noted in bag. patient appears comfortable at this time.
--- NOTE | 2021-06-10 20:27 | SUR.PHASEI ---
2024 patient to ops at this time. patient shakes head no when asked if he is in any pain. nodes head yes when nurse asked if he was ok. rr even and unlabored. parker cath in place with sinha colored urine noted. family notified of patient being in recovery and going to outpatients.
== END 2021-06-10 21:25 | disposition home or self-care (01) ==
PROVIDERS: PCP Family Medicine; Visit Provider Urology
PROC: (CPT 52356; principal; 2021-06-10 15:10)
PROC: 0TJB8ZZ Inspection of Bladder, Via Natural or Artificial Opening Endoscopic (ICD-10-PCS; CPT 52000; 2021-06-10 15:10)
PROC: 0TJ98ZZ Inspection of Ureter, Via Natural or Artificial Opening Endoscopic (ICD-10-PCS; CPT 52351; 2021-06-10 15:10)
PROC: (CPT 50605; 2021-06-10 15:10)
DX: N20.1 Calculus of ureter (principal); G35 Multiple sclerosis
CPT/HCPCS: 52356; 74018; 76000; 82365; 88300; C2625; J1100; J1956; J2405; J2704; J3010; J3490; J7030

== ENCOUNTER 2021-06-25 09:54 | Outpatient (CLI) | payer MEDICAID, SELFPAY ==
--- NOTE | 2021-06-25 10:07 | XRR_ITS ---
PROCEDURE INFORMATION: Exam: XR Abdomen Exam date and time: 06/25/2021 10:07 AM Age: 55 years old Clinical indication: Condition or disease; Kidney or ureter condition; Calculus (stone) in ureter; Additional info: Ureteral calculi TECHNIQUE: Imaging protocol: XR of the abdomen. Views: Frontal supine view of the abdomen. 1 View. COMPARISON: CR XR KUB [id number] 06/10/2021 1:36 PM FINDINGS: Tubes, catheters and devices: Bilateral ureteral stents present. No discrete calculi seen alongside the stents. Gastrointestinal tract: Nonobstructive bowel gas pattern. Bones/joints: Unremarkable. XR/XR KUB [id number] IMPRESSION: Bilateral ureteral stents present. No discrete calculi seen. Radiation Dose CTDIVOL = (mGy): DLP = (mGy-cm)
== END 2021-06-25 09:55 | disposition home or self-care (01) ==
PROVIDERS: PCP Family Medicine; Visit Provider Urology
DX: N20.1 Calculus of ureter (principal)
CPT/HCPCS: 74018; 87635

== ENCOUNTER 2021-07-01 12:42 | Day surgery (SDC) | payer MEDICAID, SELFPAY ==
--- NOTE | 2021-06-28 14:12 | PC.NURSE ---
PRE OP DONE WITH DAUGHTER OVER THE PHONE. PT DOES NOT SPEAK WELSH
--- NOTE | 2021-07-01 | SCC_ITS ---
Procedure Done: 1. Cystoscopy with removal of bilateral ureteral stents 2. Change of suprapubic tube (18 Swedish coud? tip silicone catheter) 8.7 seconds of fluoroscopic guidance, for a cumulative dose of 1.06 mGy, was provided to Dr. Cedeno by the radiology department. C-arm images of the abdomen were saved for the patient's permanent record. [facility]
[2021-07-01 13:03] VITALS: BP 132/93; PULSE 102; RESP 17; TEMP 36.7; O2SAT 96
--- NOTE | 2021-07-01 13:03 | SC_ITS ---
WS: [id number] Exam: C-arm FL for Urology Date/Time of Exam: 07/01/2021 1:03 PM Reason For Exam: Remove ureteral stents A single intraoperative C-arm image of the left abdomen is submitted for evaluation. Previously noted left ureteral stent catheter appears to have been removed from the region of the left kidney and upp er left ureter. No other significant finding on this limited study
[2021-07-01] MEDS: sodium chloride 0.9% 1,000 ML 30 ML IV (13:55)
--- NOTE | 2021-07-01 14:12 | W.PM.OPSUD ---
Surgery/Procedure H&P Update DATE OF PROCEDURE: July 01, 2021 DATE H&P PERFORMED: 06/25/21 H&P UPDATE INFORMATION: I have reviewed H&P completed within last 30 days, I have examined patient prior to procedure, No changes to prior documentation and H&P is in [facility] EMR on date indicated CHANGES TO PREVIOUS DOCUMENTATION: Family has asked me to change his suprapubic tube. He is due for that now. Also they were requesting that we consider shifting back suprapubic tube changes to the home health nurses which I think is a good idea. We will have the office contact them for the specific 2 types PREOP DIAGNOSIS: Bilateral ureteral stents PLANNED PROCEDURE: Operation Date: 07/01/21 14:25 Proposed Procedures p Cystoscopy 15554 N20.1(Not Applicable) - Bo Cedeno MD s Ureteral Stent Removal(Not Applicable) - Bo Cedeno MD
--- NOTE | 2021-07-01 14:16 | ANES.PREANE2 ---
Pre-Anesthetic Assessment Pre-Anesthetic Assessment: Height/Weight: Height 1.65 m Weight 71.668 kg Temp Pulse Resp BP Pulse Ox 98.1 F 102 H 17 132/93 96 07/01/21 13:03 07/01/21 13:03 07/01/21 13:03 07/01/21 13:03 07/01/21 13:03 Preop Diagnosis: Bilateral ureteral stents Proposed Procedure: Operation Date: 07/01/21 14:25 Proposed Procedures p Cystoscopy 10413 N20.1(Not Applicable) - Bo Cedeno MD s Ureteral Stent Removal(Not Applicable) - Bo Cedeno MD Was Beta Bam taken within 24 hours: N/A Was Clonidine taken within 24 hours: N/A Last intake: Intake Last Liquid Date 06/30/21 Last Liquid Time 21:00 Last Solid Date 06/30/21 Last Solid Time 21:00 Social: Social History: No alcohol and No tobacco Exam: Pre-Anes Outpt Exam: alert, clear to auscultation bilaterally and regular rate & rhythm Airway: Submandibular: WNL Cervical ROM: WNL MP: 2 Additional comments: Edentulous History/ROS: No significant history except as noted CV/HEM: CV/HEM: Anemia : Comments: Neurogenic bladder Musc/skel: Comments: MS Anesthetic Plan: ASA status: 3 Anesthesia: Anesthesia Evaluation and General Risk of > 500 ml blood loss (7ml/kg in children): No Meds/Allergies Current Medications: Current Medications Generic Name Dose Route Start Last Admin Trade Name Freq PRN Reason Stop Dose Admin Sodium Chloride 1,000 mls @ 30 ml s/hr 07/01/21 13:15 07/01/21 13:55 Sodium Chloride 0.9% IV 07/02/21 13:14 30 mls/hr .Q24H TEE Administration PFSH Anesthesia PFSH: Medical History Bilateral renal stones Bilateral ureteral calculi Chronic constipation Multiple sclerosis History of Neurogenic bladder Urinary retention Surgical History Chronic suprapubic catheter Status post cholecystectomy Family History Other Pancreatic cancer Social History Alcohol intake: never Caregiver/support person: Yes Marital status: Data Anesthesia Cardiac Studies: Echocardiogram 05/27/21
[2021-07-01] MEDS: levofloxacin-dextrose 5 % 500 MG/100 ML PREMIX 100 MG IV (14:37)
--- NOTE | 2021-07-01 15:06 | P.OP_ITS ---
Operative Report Date of procedure: July 01, 2021 Pre-op Diagnosis: Bilateral ureteral stents Post-op diagnosis: same Procedure Done: 1. Cystoscopy with removal of bilateral ureteral stents 2. Change of suprapubic tube (18 Egyptian coud? tip silicone catheter) Pathology: none sent Surgeon: Pao Anesthesia: MAC Estimated blood loss: None Urine output: Not measured Complications: None Findings: Both stents removed without difficulty. Good uncurling with withdrawal on fluoroscopic monitoring. Suprapubic tube changed without difficulty. No significant encrustation. Condition: stable Disposition: PACU Brief History: Delvin is a very pleasant but unfortunate 55-year-old white male with MS with neurogenic bladder. Was recently diagnosed with bilateral ureteral calculi and was treated endoscopically with laser lithotripsy and stenting. He did well. Stones were cleared. He also has a chronic suprapubic tube which is changed about every 3 weeks and he is due for change on that as well. Admitted today to have stent removed under anesthesia at his preference. Procedure: After routine preoperative evaluation examination and obtaining of informed consent he was taken to the operating suite on 07/01/2021 where general anesthesia was administered without difficulty after appropriate timeout was performed, SCDs confirmed to be functioning, preoperative antibiotics adm inistered, beta-yazmin protocol confirmed. Prepped and draped in the usual sterile fashion in dorsolithotomy position paying careful attention to avoiding pressure points. He does have some contractures so positioning was somewhat limited due to those contractures but plenty enough to expose his genitalia for scope. 21 Egyptian cystoscope with 30 degree lens was introduced into the urethral meatus and advanced into the bladder under videoscopy. Bladder was examined. Stent in the expected position. Suprapubic tube in expected position. The right ureteral stent was secured with grasping forceps and withdrawn under fluoroscopic monitoring with good uncurling of the stent and removal without difficulty. The left ureteral stent was then secured in the same fashion and removed in the same fashion without difficulty. The suprapubic tube which had been plugged prior to the cystoscopic portion of the procedure was then unplugged and the bladder was filled. Balloon was deflated and the suprapubic tube removed and replaced with another 18 Egyptian coud? tip silicone catheter. Catheter was confirmed to be working well, the balloon inflated and the catheter was secured to dependent drainage. He tolerated procedure well without complications and was awakened in the operating room and returned to PACU in stable condition. PLANS: 1. Anticipate discharge today from outpatient surgery 2. We will have his suprapubic tube changed by home health. They have been contacted and will plan on doing that about every 3 weeks. 3. Follow-up with urology to be arranged
[2021-07-01 15:19] VITALS: BP 139/96; PULSE 108; RESP 12; TEMP 36.9; O2SAT 99
[2021-07-01 15:25] VITALS: BP 140/89; PULSE 101; RESP 17; TEMP 36.9; O2SAT 100
[2021-07-01 15:35] VITALS: BP 134/89; PULSE 97; RESP 15; TEMP 36.1; O2SAT 99
[2021-07-01 16:00] VITALS: BP 143/92; PULSE 94; RESP 14; TEMP 36.6; O2SAT 99
--- NOTE | 2021-07-01 16:00 | ANE.PACU2 ---
Inpatient post-anesthesia follow up: Airway intact: Yes Vital signs: Temperature 97 F Pulse Rate 97 Respiratory Rate 15 Blood Pressure 134/89 Pulse Oximetry 99 Oxygen Delivery Me thod Room Air Oxygen Flow Rate Fraction of Inspir ed Oxygen Hydration adequate: Yes Nausea and vomiting: No Pain level: 2 Mental status: Baseline
== END 2021-07-01 16:27 | disposition home or self-care (01) ==
PROVIDERS: PCP Family Medicine; Visit Provider Urology
PROC: 0TJB8ZZ Inspection of Bladder, Via Natural or Artificial Opening Endoscopic (ICD-10-PCS; CPT 52000; principal; 2021-07-01 14:20)
PROC: (CPT 52310; 2021-07-01 14:20)
PROC: (CPT 51705; 2021-07-01 14:20)
DX: Z96.0 Presence of urogenital implants (principal); N31.9 Neuromuscular dysfunction of bladder, unspecified; G35 Multiple sclerosis
CPT/HCPCS: 51705; 52310; 76000; J1956; J2704; J3010; J7030

== ENCOUNTER 2023-04-20 19:31 | Inpatient (IN) | payer MEDICAID, SELFPAY ==
[2023-04-20 19:32] VITALS: BP 146/93; PULSE 108; RESP 21; TEMP 38.1; O2SAT 97
--- NOTE | 2023-04-20 19:55 | XRR_ITS ---
PROCEDURE INFORMATION: Exam: XR Chest Exam date and time: 04/20/2023 8:01 PM Age: 57 years old Clinical indication: Fever TECHNIQUE: Imaging protocol: Radiologic exam of the chest. Views: 1 view. COMPARISON: CR XR chest 1V portable [id number] 05/25/2021 9:13 PM FINDINGS: Lungs: Unremarkable. No consolidation. Pleural spaces: Unremarkable. No pleural effusion. No pneumothorax. Heart/Mediastinum: Unremarkable. No cardiomegaly. Bones/joints: Unremarkable. XR/XR chest 1V portable [id number] IMPRESSION: No acute findings.
[2023-04-20 20:24] VITALS: BP 157/105; PULSE 108; RESP 18; O2SAT 95
--- NOTE | 2023-04-20 20:27 | ED_ITS ---
HPI - Fever General: Chief Complaint: Fever Stated Complaint: fever Time Seen by Provider: 04/20/23 19:40 History of Present Illness: 57-year-old male with history of multiple sclerosis and bedbound. Patient with indwelling Platt catheter draining for past 7 years. Brought to emergency room by his due to fever x1 week. The via channel cementer outsole machine reviews the patient has been taking Motrin and Tylenol for the past 1 week. also reveals patient with some cough. Patient had a temp of 102 at home today. No known sick contacts or recent foreign travel. Associated symptoms: Reports chills Review of Systems General: Reports: ROS unobtainable due to medical condition Const: Reports: fever(s) and chills Resp: Reports: productive cough PFSH ED PFSH: Medical History Bilateral renal stones Bilateral ureteral calculi Chronic constipation Multiple sclerosis History of Neurogenic bladder Urinary retention Surgical History Chronic suprapubic catheter Status post cholecystectomy Family History Other Pancreatic cancer Social History Alcohol intake: never Caregiver/support person: Yes Marital status: Physical Exam Const: GENERAL APPEARANCE: comfortable; not in distress, not lethargic and no odor of alcohol detected ORIENTATION/CONSCIOUSNESS: not lethargic HENMT: COMMON NORMALS: normocephalic, atraumatic, hearing grossly normal bilaterally, external ears normal, EAC's normal, TM's normal bilaterally, Normal external nose present, Normal nasal mucous membranes and turbinates present, moist oral mucous membranes, oropharynx normal, dentition normal and gingiva normal HEAD & SCALP: normocephalic and atraumatic NOSE: Normal external nose present and Normal nasal mucous membranes and turbinates present EXTERNAL EAR: Yes external ears normal EXTERNAL AUDITORY CANAL: EAC's normal TYMPANIC MEMBRANE: TM's normal bilaterally Eye: COMMON NORMALS: Equal, round and reactive pupils present, EOMs intact bilaterally, conjunctivae normal, no scleral icterus, no papilledema, normal visual franco by confrontation and fundi normal bilaterally CONJUNCTIVA: Yes conjunctivae normal PUPIL: Yes Equal, round and reactive pupils present DIRECT OPHTHALMOSCOPY: Yes no papilledema and Yes fundi normal bilaterally Neck/C-Spine: COMMON NORMALS: full ROM, no lymphadenopathy, supple, no meningeal signs, no JVD, Thyroid normal and No carotid bruits THYROID: Thyroid normal Resp: AUSCULTATION: crackles, no rhonchi, no wheezes and diminished lung sounds Cardio: COMMON NORMALS: no JVD, S1 normal heart sound present, S2 normal heart sound present and Peripheral pulses 2+ throughout PALPATION: normal PMI RATE: tachycardic HEART SOUNDS: S1 normal heart sound present and S2 normal heart sound present PERIPHERAL PULSES: Peripheral pulses 2+ throughout GI: COMMON NORMALS: Normal to inspection, nondistended, normoactive bowel sounds present, Soft to palpation, non-tender, No hepatosplenomegaly present, no masses and no bruits INSPECTION: No Abdominal wall edema, No abdominal distension and Yes scar AUSCULTATION: Yes normoactive bowel sounds PALPATION: Yes Soft to palpation and Yes No hepatosplenomegaly present : PENIS: no swelling and no ulcerations MEATUS: other (Platt cath in place. With indwelling Platt cath times seven years years) Extremity: NARRATIVE EXTREMITY EXAM: Contractions Neuro: SENSORIUM/ORIENTATION: No lethargic MENINGEAL SIGNS: Yes no meningeal signs Skin: COMMON NORMALS: no rashes or lesions noted, no wounds, turgor normal, no jaundice, no petechiae and no mottling GENERAL SKIN EXAM: no rashes or lesions noted and turgor normal Course Vital Signs: Vital signs: Vital Signs Temperature 98.3 F 04/22/23 00:00 Pulse Rate 80 04/22/23 00:00 Respiratory Rate 15 04/22/23 00:00 Blood Pressure 110/72 04/22/23 00:00 Pulse Oximetry 94 04/22/23 00:00 Oxygen Delivery Me thod Room Air 04/22/23 00:00 MDM - Fever Medical Decision Making Patient was made comfortable emergency room and had extensive work-up for sepsis including CBC, CMP, prolactin, lactic acid, blood culture. Patient was given IV fluid, IV antibiotics. Discussed the lab findings with patient and daughter. Discussed patient with the hospitalist who gladly accept patient for admission. Differential Diagnosis Likely abdominal pain (UTI, pneumonia, viral syndrome, ulcer,) Lab Data 04/21/23 06:07 04/21/23 06:07 Radiology Impressions Chest X-Ray 04/20/23 19:55 IMPRESSION: No acute findings. Abdomen/Pelvis CT 04/20/23 22:40 IMPRESSION: 1. Moderate to severe right hydronephrosis with multiple nonobstructing stones, the largest of these is a 9.6 mm renal stone within the pelvis. 2. Urinary tract infection, recommend clinical correlation and urinalysis. 3. Possible right pyelonephritis. Laboratory Results WBC 10.7 10^3/uL (4.0-10.0) H 04/20/23 20: RBC 4.90 10^6/uL (4.1-5.3) 04/20/23 20: Hgb 13.8 g/dL (11.7-16.6) 04/20/23 20: Hct 42.7 % (42.0-52.0) 04/20/23 20: MCV 87.1 fl (80-94) 04/20/23 20: MCH 28.2 pg (28.0-34.0) 04/20/23 20: MCHC 32.3 g/dL (30.0-36.0) 04/20/23 20: RDW 14.1 % (12.1-15.1) 04/20/23: Plt Count 363 10^3/cmm (130-400) 04/20/23 20: MPV 8.4 fL (7.4-10.4) 04/20/23 20: Neut % (Auto) 78.6 % 04/20/23: Lymph % (Auto) 13.9 % 04/20/23 20: [place] % (Auto) 6.8 % 04/20/23 20: Eos % (Auto) 0.1 % 04/20/23: Baso % (Auto) 0.6 % 04/20/23: Neut # (Auto) 7.74 10^3/uL (1.8-7.7) H 04/20/23 20: Lymph # (Auto) 1.5 10^3/uL (0.8-4.8) 04/20/23 20: [place] # (Auto) 0.7 10^3/uL (0.2-0.9) 04/20/23 20:23 Eos # (Auto) 0.0 10^3/uL (0.0-0.8) 04/20/23 20: Baso # (Auto) 0.1 10^3/uL (0.0-0.1) 04/20/23 20:23 Nucleated RBC % (auto) 0 % 04/20/23 20: Nucleated RBCs # 0.0 /100WBC 04/20/23 20: D-Dimer 10.45 ug/mIFEU (0-0.59) H 04/20/23 20:23 Sodium 135 mmol/L (136-145) L 04/20/23 20: Potassium 4.3 mmol/L (3.5-5.1) 04/20/23 20: Chloride 102 mmol/L (98-107) 04/20/23 20:23 Carbon Dioxide 22 mmol/L (22-29) 04/20/23 20: Anion Gap 15.3 (5-19) 04/20/23 20:23 BUN 13 mg/dL (6-20) 04/20/23 20:23 Creatinine 0.5 mg/dL (0.7-1.2) L 04/20/23 20:23 GFR Calculation 172.0 mL/min (90-130) H 04/20/23 20: Glucose 119 mg/dL (65-115) H 04/20/23 20:23 Calculated Osmolality 281 mOsm/kg (285-295) L 04/20/23 20: Lactic Acid 0.7 mmol/L (0.5-2.2) 04/20/23 20: Calcium 7.9 mg/dL (8.5-10.5) L 04/20/23 20:23 Total Bilirubin 0.9 mg/dL (0.15-1.2) 04/20/23 20: AST 19 U/L (0-40) 04/20/23 20: ALT 35 U/L (0-41) 04/20/23 20:23 Alkaline Phosphatase 184 U/L (40-130) H 04/20/23 20:23 Total Protein 7.3 g/dL (6.6-8.7) 04/20/23 20:23 Albumin 3.4 g/dL (3.5-5.2) L 04/20/23 20: Globulin 3.9 g/dL (1.3-4.6) 04/20/23 20:23 Procalcitonin 0.55 ng/mL (0-0.5) H 04/20/23 20:23 Urine Color Yellow (Yellow) 04/20/23 20:55 Urine Appearance Cloudy (CLEAR) A 04/20/23 20:55 Urine pH 6 (5-7) 04/20/23 20:55 Ur Specific [place] 1.010 (1.005-1.030) 04/20/23 20:55 Urine Protein Trace (Negative) 04/20/23 20:55 Urine Glucose (UA) Norm (Normal) 04/20/23 20:55 Urine Ketones Negative (Negative) 04/20/23 20:55 Urine Blood 3+ (Negative) H 04/20/23 20:55 Urine Nitrate Negative (Negative) 04/20/23 20:55 Urine Bilirubin Neg (Negative) 04/20/23 20:55 Urine Urobilinogen Neg mg/dL (Negative) 04/20/23 20:55 Ur Leukocyte Esterase 2+ (Negative) H 04/20/23 20:55 Urine RBC 15-25 /hpf (0-2) H 04/20/23 20:55 Urine WBC 40-55 /hpf (0-5) H 04/20/23 20:55 Ur Squamous Epith Cells None /hpf (0-5) 04/20/23 20:55 Amorphous Sediment Not Reportable 04/20/23 20:55 Urine Bacteria 3+ /hpf (NONE) H 04/20/23 20:55 Discharge Plan Discharge Patient Disposition: Admitted As Inpatient Admit Provider: Nicki Yu Clinical Impression: Multiple sclerosis, Fever of unknown origin, Acute UTI Condition: Stable Coding Level of Care Code ED Behavioral Therapy Coordinator for Rona Machuca
[2023-04-20] MEDS: sodium chloride 0.9% 1,000 ML 999 ML IV ×2 (20:30→22:22)
[2023-04-20 20:33] LABS: Basophils # 0.1 10^3/uL (0.0-0.1); Basophils % 0.6 %; Eosinophils % 0.1 %; Hematocrit 42.7 % (42.0-52.0); Hemoglobin 13.8 g/dL (11.7-16.6); Lymphocytes # 1.5 10^3/uL (0.8-4.8); Lymphocytes % 13.9 %; Mean Corpuscular HGB Conc 32.3 g/dL (30.0-36.0); Mean Corpuscular Hemoglobin 28.2 pg (28.0-34.0); Mean Corpuscular Volume 87.1 fl (80-94); Mean Platelet Volume 8.4 fL (7.4-10.4); Monocytes # 0.7 10^3/uL (0.2-0.9); Monocytes % 6.8 %; Neutrophils # 7.74 10^3/uL (1.8-7.7); Nucleated Red Blood Cells % 0 %; Platelet Count 363 10^3/cmm (130-400); Red Cell Distribution Width 14.1 % (12.1-15.1); White Blood Count 10.7 10^3/uL (4.0-10.0)
[2023-04-20 20:50] LABS: Lactic Sepsis W/Reflex 0.7 mmol/L (0.5-2.2)
[2023-04-20 20:57] LABS: Alanine Aminotransferase 35 U/L (0-41); Albumin Level 3.4 g/dL (3.5-5.2); Alkaline Phosphatase 184 U/L (40-130); Anion Gap 15.3 (5-19); Aspartate Amino Transferase 19 U/L (0-40); Blood Urea Nitrogen 13 mg/dL (6-20); Calcium 7.9 mg/dL (8.5-10.5); Carbon Dioxide 22 mmol/L (22-29); Chloride 102 mmol/L (98-107); Globulin 3.9 g/dL (1.3-4.6); Glucose 119 mg/dL (65-115); Osmolality Calculated 281 mOsm/kg (285-295); Potassium 4.3 mmol/L (3.5-5.1); Sodium 135 mmol/L (136-145); Total Bilirubin 0.9 mg/dL (0.15-1.2); Total Protein 7.3 g/dL (6.6-8.7)
[2023-04-20 21:04] LABS: Procalcitonin 0.55 ng/mL (0-0.5)
[2023-04-20 21:06] LABS: Neutrophils % 78.6 %; Slide Review Slide Review Perform
[2023-04-20 21:08] LABS: Add Urine Microscopic? YES; Bilirubin Urine Neg (Negative); Blood Urine 3+ (Negative); Glucose Urine UA Norm (Normal); Ketones Urine Negative (Negative); Leukocyte Esterase Urine 2+ (Negative); Nitrate Urine Negative (Negative); Protein Urine Trace (Negative); RBC Urine 15-25 /hpf (0-2); Urine Appearance Cloudy (CLEAR); Urine Color Yellow (Yellow); Urobilinogen Urine Neg (Negative); WBC Urine 40-55 /hpf (0-5); pH Urine 6 (5-7)
[2023-04-20 21:09] LABS: Add Urine Culture? Yes; Bacteria Urine 3+ /hpf
[2023-04-20] MEDS: cefTRIAXone 1,000 MG in sodium chloride 0.9% (plus) 50 ML 100 MG IV (21:28)
[2023-04-20 21:30] VITALS: BP 154/95; PULSE 120; RESP 17; TEMP 38.4; O2SAT 96
[2023-04-20] MEDS: ketorolac 30 mg/mL INJ IVP (22:22)
--- NOTE | 2023-04-20 22:31 | P.HP_ITS ---
Providers/Chief Complaint Admitting Physician: Nicki Yu MD Primary Care Provider: Gaby Martines MD Chief Complaint: fever History of Present Illness Delvin Mittal is a 57 year old male with history of MS, chronic indwelling catheter which gets replaced every month, he is due to get his Platt catheter changed in next 2 days, presented for persistent fever. Family member at the bedside stating that he started spiking fever last Thursday, he was given antipyretics for 5 consecutive days which improved his fever but did not completely subside his fever, but today he started spiking high-grade fever 101 that prompted his visit to the ER. At baseline he is on pur?ed diet, not able to make his needs known, he gets easily short of breath on conversation with the family. Mumbles a few words. Family speaks [place]. [employer] Specialist was used to communicate with the family. No diarrhea, family is endorsing nonproductive cough. Suprapubic catheter gets changed by home health every 3 weeks In the ER he has been diagnosed with sepsis related to UTI, he has been given antibiotics, blood cultures and urine culture take Septic bolus administered by myself around 2 L Lactic acid is normal, tachypnea tachycardia fever and leukocytosis Review of Systems General: Reports: ROS unobtainable due to mental status Medications/Allergies Home Medications Medication Instructions Recorded Confirmed Last Taken Type levofloxacin 250 mg/10 mL oral 500 mg (20 mL) PO DAILY 14 days 06/12/21 07/01/21 06/30/21 Rx solution #480 mL Allergies Allergy/AdvReac Type Severity Reaction Status Date / Time latex Allergy BURNING Verified 04/20/23 19:46 PFSH Acute PFSH: Medical History Bilateral renal stones Bilateral ureteral calculi Chronic constipation Multiple sclerosis History of Neurogenic bladder Urinary retention Surgical History Chronic suprapubic catheter Status post cholecystectomy Family History Other Pancreatic cancer Social History Alcohol intake: never Caregiver/support person: Yes Marital status: Vitals/I&O/Wt Last Vital Signs Temp 101.2 F H 04/20/23 21:30 Pulse 120 H 04/20/23 21:30 Resp 17 04/20/23 21:30 BP 154/95 04/20/23 21:30 Pulse Ox 96 04/20/23 21:30 O2 Del Method Room Air 04/20/23 19:32 04/20/23 04/20/23 04/20/23 06:59 14:59 22:59 Intake Total 1000 / 1000 Balance 1000 / 1000 Weight last 48 hrs Weight 72.575 kg Physical Exam Narrative: male Disordered conjugate eye movement Not able to communicate Mumbles a few words Dry cough Bilateral breath sounds with rhonchi Febrile Tachycardia sinus tachycardia Lower extremity hypoactive atrophy, I do not appreciate any ulcers around ankles Offloading foam in place Neuro exam is limited however able to move extremities Abdomen soft Family at the bedside S1, S2 sinus tachycardia Patient currently on room air saturating well Sepsis exam Patient is nonverbal at baseline Mild skin mottling around extremities Cap refill less than 3 seconds Data 04/20/23 20:23 04/20/23 20:23 Micro: Microbiology 04/20/23 20:10 Blood Culture - Preliminary Blood SPECIMEN COLLECTED 04/20/23 20:23 Blood Culture - Preliminary Blood SPECIMEN COLLECTED A&P Assessment and plan (1) Acute UTI: (2) Decubitus ulcer of left hip, stage 3: (3) Acute on chronic anemia: (4) Multiple sclerosis: (5) Chronic suprapubic catheter: (6) Neurogenic bladder: (7) Sepsis: Plan Sepsis related to UTI Start meropenem Requested blood cultures, lactic acid, meropenem, septic bolus No signs of septic shock Start IV fluids Suprapubic catheter gets changed every month as per the family Requesting CT abdomen pelvis to rule out pyelonephritis, previous history of nephrolithiasis as well Patient has home health for suprapubic tube change every 3 weeks History of cystoscopy, bilateral ureteral stent placement with Dr. Cedeno Previous culture showed Serratia marcescens bacteremia History of MS with neurogenic bladder, Patient is bedbound, sacral ulcer present on admission Every 2 hours patient positioning Family takes care of him As per the family he is on pur?ed diet Goals of care discussed with the family: He is full code Pur?ed diet DVT prophylaxis Lovenox Records reviewed: EF 60% Dr. Cedeno date bilateral ureteral stent in the past, not sure if that has been removed, will review CT abdomen pelvis report Patient is nonverbal most of the information taken from the family, matching machine operator, ER physician and previous records reviewed Attestations Medical Necessity Statement*: More than 2 midnights anticipate Diagnoses Acute UTI N39.0 Decubitus ulcer of left hip, stage 3 L89.223 Acute on chronic anemia D64.9 Multiple sclerosis G35 Chronic suprapubic catheter Z93.59 Neurogenic bladder N31.9 Sepsis A41.9
--- NOTE | 2023-04-20 22:40 | CTR_ITS ---
PROCEDURE INFORMATION: Exam: CT Abdomen And Pelvis Without Contrast Exam date and time: 04/20/2023 11:15 PM Age: 57 years old Clinical indication: Prior surgery; Surgery date: 6+ months; Surgery type: Gb. Suprapubic cath; Patient HX: Fever with bacteriuria. ; Additional info: UTI sepsis TECHNIQUE: Imaging protocol: Computed tomography of the abdomen and pelvis without contrast. Radiation optimization: All CT scans at this facility use at least one of these dose optimization techniques: automated exposure control; mA and/or kV adjustment per patient size (includes targeted exams where dose is matched to clinical indication); or iterative reconstruction. REPORTING DATA: Count of CT and Cardiac NM exams in prior 12 months: This patient has received 0 known CTs and 0 known cardiac nuclear medicine studies in the 12 months prior to the current study. COMPARISON: CT abdomen pelvis w con* [id number] 05/25/2021 2:23 PM RADIATION DOSE METRICS: Total DLP (mGy-cm): 938.64 FINDINGS: Lungs: There is motion artifact in the visualized lung bases. There are no gross infiltrates noted. Liver: Normal. No mass. Gallbladder and bile ducts: The gallbladder is not visualized. Pancreas: Normal. No ductal dilation. Spleen: Normal. No splenomegaly. Adrenal glands: Normal. No mass. Kidneys and ureters: Left kidney is smaller than the right. The right, there is perinephric stranding, moderate hydronephrosis and multiple nonobstructing renal stones. The largest of which is 9.6 mm within the renal pelvis. There is no hydroureter. There are no obstructing ureteral calculi. Stomach and bowel: Unremarkable. No obstruction. No mucosal thickening. Appendix: No evidence of appendicitis. Intraperitoneal space: Unremarkable. No free air. No significant fluid collection. Vasculature: Unremarkable. No abdominal aortic aneurysm. Lymph nodes: Unremarkable. No enlarged lymph nodes. Urinary bladder: The bladder is completely decompressed with an indwelling suprapubic cystostomy tube. There is air within the urinary bladder which is associated with the Platt catheter. There are associated inflammatory changes in the tissue surrounding the urinary bladder, this indicates a UTI, recommend clinical correlation and urinalysis. Reproductive: Unremarkable as visualized. Bones/joints: Unremarkable. No acute fracture. Soft tissues: Unremarkable. CT/CT abdomen pelvis wo con [id number] IMPRESSION: 1. Moderate to severe right hydronephrosis with multiple nonobstructing stones, the largest of these is a 9.6 mm renal stone within the pelvis. 2. Urinary tract infection, recommend clinical correlation and urinalysis. 3. Possible right pyelonephritis.
[2023-04-20 22:44] VITALS: BP 156/86; PULSE 120; RESP 18; O2SAT 93
[2023-04-20 23:18] LABS: D Dimer 10.45 ug/mIFEU (0-0.59)
[2023-04-20] MEDS: meropenem 1,000 MG in sodium chloride 0.9% (plus) 50 ML 100 MG IV (23:53)
[2023-04-21] VITALS (8 sets, daily range): BP systolic 103–138; BP diastolic 63–79; PULSE 87–112; RESP 16–19; TEMP 36.9–38.3; O2SAT 94–96
[2023-04-21] MEDS: lactated ringers 1,000 ML 999 ML IV ×2 (00:03→01:41)
[2023-04-21] MEDS: enoxaparin 40 mg/0.4 mL Syringe SUBCUT (00:10)
--- NOTE | 2023-04-21 00:17 | PC.NURSE ---
ADMIT NOTE Pt was received to floor from ER at 2300. Received call from ER that pt was to go to CT before floor but was not done. Pt back downstairs for CT. Is Ukrainian and does not speak or understand [place]i. is with pt and does speak and understand some [place]i. Son able to help with admission/teaching plan of care translation over phone. Pt has MS and is bedbound. Is alert and does talk with in a quiet voice. relates pt has been sick about a week with fevers. Has a moist sounding cough and is told to nurses that he has trouble with secretions. HOB is elevated and yankeurs sx at bedside. Has chronic SP catheter. Urine is cloudy but color is light. IV patent to left hand but is only a 22 gauge. Need to run 2000ml of LR bolus ordered. repair weaver is going to attempt an US IV.
--- NOTE | 2023-04-21 01:34 | PC.NURSE ---
IV New IV was established with US. L hand IV dc'd per wifes request.
[2023-04-21] MEDS: sodium chloride 0.9% 1,000 ML 75 ML IV ×2 (03:22→17:12)
[2023-04-21] MEDS: ketorolac 30 mg/mL INJ 15 MG IVP ×2 (05:08→16:40)
[2023-04-21] MEDS: meropenem 1,000 MG in sodium chloride 0.9% (plus) 50 ML 100 MG IV ×3 (06:15→23:28)
[2023-04-21 06:37] LABS: Basophils % 0.4 %; Eosinophils % 0.1 %; Hematocrit 37.4 % (42.0-52.0); Hemoglobin 11.7 g/dL (11.7-16.6); Lymphocytes # 2.2 10^3/uL (0.8-4.8); Lymphocytes % 19.4 %; Mean Corpuscular HGB Conc 31.3 g/dL (30.0-36.0); Mean Corpuscular Hemoglobin 28.2 pg (28.0-34.0); Mean Corpuscular Volume 90.1 fl (80-94); Mean Platelet Volume 9.7 fL (7.4-10.4); Monocytes # 0.9 10^3/uL (0.2-0.9); Monocytes % 7.6 %; Neutrophils # 7.87 10^3/uL (1.8-7.7); Nucleated Red Blood Cells % 0 %; Platelet Count 230 10^3/cmm (130-400); Red Blood Count 4.15 10^6/uL (4.1-5.3); Red Cell Distribution Width 14.2 % (12.1-15.1); White Blood Count 11.4 10^3/uL (4.0-10.0)
[2023-04-21 07:17] LABS: Slide Review Slide Review Perform
[2023-04-21 07:23] LABS: Anion Gap 14.1 (5-19); Blood Urea Nitrogen 9 mg/dL (6-20); Calcium 7.7 mg/dL (8.5-10.5); Carbon Dioxide 20 mmol/L (22-29); Chloride 107 mmol/L (98-107); Glomerular Filtration Rate 222.5 mL/min (90-130); Glucose 113 mg/dL (65-115); Magnesium 1.9 mg/dL (1.7-2.3); Osmolality Calculated 283 mOsm/kg (285-295); Potassium 4.1 mmol/L (3.5-5.1); Sodium 137 mmol/L (136-145)
--- NOTE | 2023-04-21 07:30 | CT_ITS ---
WS: [id number] CT CHEST ANGIOGRAPHY WITH REFORMATS HISTORY: tachycardia TECHNIQUE: Contiguous axial images are obtained through the chest during arterial injection of intrav enous contrast. Images are reconstructed to evaluate the pulmonary arteries. MIP imaging also reviewe d. All CT scans at [facility] use at least one of these dose optimization techniques: automat ed exposure control; mA and/or kV adjustment per patient size (includes targeted exams where dose is matched to clinical indication); or iterative reconstruction. CONTRAST: Omnipaque 350; 100 mL IV. DLP: 327.62 mGy.cm COMPARISON: 12/21/2015, 04/15/2021 Good opacification of the pulmonary arteries. No filling defects within the pulmonary arteries. Sola l sized pulmonary artery. Mildly ectatic changes within the aorta. No aneurysm. Lung volumes are decreased. There are mild dependent changes throughout the lungs. No pulmonary mass. There are a few small micronodules in the right lung which are unchanged. Mild pleural thickening. N o pleural or pericardial effusions. Heart size is slightly enlarged. No mediastinal or hilar adenopat hy. Patient has a large known left neck mass which is most likely related to the thyroid. This mass has b een described since 2016 with slow increase in size. Solid mass extends over a length of 8.9 cm, carter sversely 7.8 cm and anterior posterior 7.2 cm. Mass begins at the level of the hyoid bone and extends inferior with loss of the normal fat plane of the sternocleidomastoid muscle and also fat planes adj acent to the trachea. Trachea is being displaced to the right. There may be external extension of thi s mass. There is also mild mass effect upon the great vessels. Reidentified is a sclerotic focus within the T9 vertebral body which is stable in size. IMPRESSION: 1. No pulmonary emboli. 2. No mass or pneumonia. 3. Large left neck mass with extension into the upper mediastinum has been previously described and present since 2016 with slow increase in size. Favor this is a thyroid mass. There is no adjacent sha nopathy. There is mass effect upon the surrounding soft tissue structures as described above.
[2023-04-21] MEDS: iohexol 350 mg/mL 500 mL Btl (per mL) IV (08:01)
--- NOTE | 2023-04-21 08:29 | PC.PHAR ---
ALL MEDS VERIFIED WITH PHARMACY. PT UNABLE TO VERIFY.
[2023-04-21] MEDS: pantoprazole 40 mg SDV IVP ×2 (09:36→17:13)
[2023-04-21] MEDS: enoxaparin 80 mg/0.8 mL Syringe 70 MG SUBCUT (09:37)
--- NOTE | 2023-04-21 13:43 | PM.PN ---
Subjective Subjective: Patient is awake and alert. His spouse is bedside. She speaks limited [place] so translation services between [place] and [place] were arranged via hospital language line on video tablet. Patient is reportedly mostly nonverbal at baseline. 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 Spouse reports that he is doing better this morning. He denies any pain. She reports his catheter is due to be changed tomorrow. Discussed findings from the work-up overnight and plan of care. Questions answered. Medications: Reviewed: Yes Vitals/I&O/Wt Last Vital Signs Temp 100.0 F H 04/21/23 12:00 Pulse 106 H 04/21/23 12:00 Resp 16 04/21/23 12:00 BP 131/79 04/21/23 12:00 Pulse Ox 95 04/21/23 12:00 O2 Del Method Room Air 04/21/23 12:00 04/20/23 04/21/23 04/21/23 22:59 06:59 14:59 Intake Total 1000 / 1000 2050 / 3050 1340 / 1340 Output Total 1150 / 1150 Balance 1000 / 1000 900 / 1900 1340 / 1340 Weight last 48 hrs Weight 72.575 kg Physical Exam Narrative: General: Patient is awake. Frail appearing. Febrile. Head: Eyes are disconjugate. Irises are different colors. Corneas are possibly lens are slightly cloudy. Neck: No JVD. Cardiovascular: RRR. No gallops. No murmurs. No peripheral edema. Lungs: Breath sounds are diminished at the bases, no use of accessory muscles, no crackles or wheezes. Skin: No jaundice. A complete skin exam was not performed [sacral rash not observed on exam] Abdomen: Normal bowel sounds, abdomen soft and nontender. Extremities: No cyanosis. Musculoskeletal: Poor muscle mass. Neurological: No myoclonus. Data 04/21/23 06:07 04/21/23 06:07 Micro: Microbiology 04/20/23 20:10 Blood Culture - Preliminary Blood 04/20/23 20:23 Blood Culture - Preliminary Blood A&P Assessment and plan (1) Sepsis: Source: UTI/pyelonephritis Imaging reviewed Follow-up cultures Continue meropenem Antipyretics IV fluids (2) Acute UTI: Antibiotics as above (3) Decubitus ulcer of left hip, stage 3: POA Wound care (4) Acute on chronic anemia: Monitor blood counts (5) Multiple sclerosis: With significant chronic debility, bedbound, mostly nonverbal Family cares for him, anticipate he will discharge to home when medically ready Continue home pur?ed diet (6) Chronic suprapubic catheter: Due to be changed on 04/22 (7) Neurogenic bladder: Secondary from sequela of multiple sclerosis Continue suprapubic cath as above (8) Neck mass: Incidentally seen on imaging again Unclear if patient has had work-up previously Can offer referral at discharge if desired (9) Hydronephrosis: Imaging reviewed Right-sided hydronephrosis with nonobstructive nephrolithiasis No obstructive stones noted History of prior stents (10) Positive D dimer: Venous Doppler negative CTA chest is negative for PE Decrease Lovenox dosing Plan DVT prophylaxis: Lovenox CODE STATUS: Full code Attestations Medical Necessity Statement*: Patient admitted for sepsis secondary to pyelonephritis requiring IV antibiotics, IV fluids, and supportive care. Coding Level of Care Code Acute Code for [facility] Fwd Diagnoses Sepsis A41.9 Acute UTI N39.0 Decubitus ulcer of left hip, stage 3 L89.223 Acute on chronic anemia D64.9 Multiple sclerosis G35 Chronic suprapubic catheter Z93.59 Neurogenic bladder N31.9 Neck mass R22.1 Hydronephrosis N13.30 Positive D dimer R79.89
--- NOTE | 2023-04-21 20:59 | PC.NURSE ---
ROUNDING NOTE Pt & speak & understand mostly Br[place]ian. can communicate in Upper Sorbian better than pt. Pt speaks few words at baseline. He did respond to me with Hi and said thank you clearly. reports he had a much better day today with decreased fevers and much less congestion & need for sx with secretions coughed up.
--- NOTE | 2023-04-21 23:52 | USCV_ITS ---
Delvin Mittal Age: 57 Gender: M : 1965 Exam Date: 04/21/2023 00:17 Ordering Phys: Nicki Yu MD Technologist: MADAI Exam Location: [facility] [place] Indication: swelling HISTORY: swelling PROCEDURES: Venous duplex imaging was performed in bilateral lower extremities. The following venous structures were evaluated: common femoral vein, profunda vein, proximal portion of the greater saphenous vein, superficial femoral vein, and the popliteal vein. In addition, the posterior tibial veins were evaluated. FINDINGS: Normal 2-D Doppler and augmentation and compressibility throughout the lower extremity venous structures. Additional imaging through the proximal calf veins also reveals no thrombus. Limited evaluation of the greater saphenous vein is patent with no thrombus. CONCLUSIONS No DVT bilateral lower extremities. Dr. Katheryn Kelley DO (Electronically Signed) Final Date: 21 April 2023 08:28 S
[2023-04-22] VITALS (8 sets, daily range): BP systolic 110–155; BP diastolic 71–91; PULSE 76–100; RESP 15–17; TEMP 36.8–37.7; O2SAT 94–98
[2023-04-22 05:13] LABS: Hematocrit 32.3 % (42.0-52.0); Hemoglobin 9.9 g/dL (11.7-16.6); Mean Corpuscular HGB Conc 30.7 g/dL (30.0-36.0); Mean Corpuscular Volume 91.2 fl (80-94); Mean Platelet Volume 8.8 fL (7.4-10.4); Platelet Count 292 10^3/cmm (130-400); Red Blood Count 3.54 10^6/uL (4.1-5.3); Red Cell Distribution Width 14.3 % (12.1-15.1); White Blood Count 8.4 10^3/uL (4.0-10.0)
[2023-04-22 05:42] LABS: Albumin Level 2.7 g/dL (3.5-5.2); Anion Gap 11.4 (5-19); Blood Urea Nitrogen 11 mg/dL (6-20); Calcium 7.4 mg/dL (8.5-10.5); Carbon Dioxide 25 mmol/L (22-29); Chloride 107 mmol/L (98-107); Glomerular Filtration Rate 222.5 mL/min (90-130); Glucose 126 mg/dL (65-115); Magnesium 1.9 mg/dL (1.7-2.3); Potassium 3.4 mmol/L (3.5-5.1); Sodium 140 mmol/L (136-145)
[2023-04-22 05:43] LABS: Slide Review Slide Review Perform
[2023-04-22 05:44] LABS: Absolute Eosinophils 0.1 10^3/cmm (0.0-0.7); Eosinophils 2 %; Lymphocytes 24 %; Monocytes Absolute 0.6 10^3/cmm (0.1-0.6); Platelet Estimate Normal (Normal); Segmented Neutrophils 60 %; Total Cells Counted 100 (0-100)
[2023-04-22 05:47] LABS: Procalcitonin 0.49 ng/mL (0-0.5)
[2023-04-22] MEDS: meropenem 1,000 MG in sodium chloride 0.9% (plus) 50 ML 100 MG IV ×3 (06:20→22:47)
[2023-04-22] MEDS: enoxaparin 40 mg/0.4 mL Syringe SUBCUT (08:50)
[2023-04-22] MEDS: pantoprazole 40 mg SDV IVP ×2 (08:50→17:29)
[2023-04-22] MEDS: sodium chloride 0.9% 1,000 ML 75 ML IV (08:50)
[2023-04-22] MEDS: potassium chloride oral liq 20 mEq/15 mL UDC PO (12:19)
--- NOTE | 2023-04-22 13:14 | PM.PN ---
Subjective Subjective: Patient seen and evaluated. His spouse is bedside. Again used language line video systems planner. Spouse reports that he is looking better today. Patient seems to endorses feeling better as well. Discussed bacteremia diagnosis and treatment plan. Spouse and patient in agreement. Inquired over incidentally found neck mass. Spouse reports they were unaware of this finding previously. Discussed he needs further work-up as outpatient, offered referral to PCP and/or endocrinology; she is agreeable. Medications: Reviewed: Yes Vitals/I&O/Wt Last Vital Signs Temp 98.8 F 04/22/23 12:00 Pulse 94 04/22/23 12:00 Resp 17 04/22/23 12:00 BP 129/84 04/22/23 12:00 Pulse Ox 96 04/22/23 12:00 O2 Del Method Room Air 04/22/23 12:00 04/21/23 04/22/23 04/22/23 22:59 06:59 14:59 Intake Total 1480 / 2870 1170 / 4040 1152.5 / 1152.5 Output Total 700 / 700 350 / 1050 Balance 780 / 2170 820 / 2990 1152.5 / 1152.5 Weight last 48 hrs Weight 72.575 kg Physical Exam Narrative: General: Patient is awake. Frail and chronically ill appearing. Lying in bed. Head: Eyes are disconjugate. Irises are different colors. Corneas are possibly lens are slightly cloudy. Eye exam is unchanged. Neck: No JVD. Supple. Palpable mass. Cardiovascular: RRR. No gallops. No murmurs. No peripheral edema. Lungs: Breath sounds are diminished at the bases, no use of accessory muscles, no crackles or wheezes. Skin: No jaundice. A complete skin exam was not performed [sacral rash not observed on exam] Abdomen: Normal bowel sounds, abdomen soft and nontender. Extremities: No cyanosis. Musculoskeletal: Poor muscle mass. Neurological: No myoclonus. Data 04/22/23 04:53 04/22/23 04:53 Micro: Microbiology 04/20/23 20:55 Urine Culture - Preliminary Urine,Clean Catch Gram Negative Rods 04/21/23 18:52 Blood Culture - Preliminary Blood SPECIMEN COLLECTED 04/21/23 18:52 Blood Culture - Preliminary Blood SPECIMEN COLLECTED 04/20/23 20:10 Blood Culture - Preliminary Blood Klebsiella pneumoniae 04/20/23 20:23 Blood Culture - Preliminary Blood Klebsiella pneumoniae A&P Assessment and plan (1) Sepsis: Source: Klebsiella pneumoniae UTI/pyelonephritis complicated by bacteremia Imaging reviewed Follow-up cultures for sensitivities Continue meropenem Antipyretics IV fluids (2) Acute UTI: Antibiotics as above (3) Decubitus ulcer of left hip, stage 3: POA Wound care (4) Acute on chronic anemia: Monitor blood counts (5) Multiple sclerosis: With significant chronic debility, bedbound, mostly nonverbal Family cares for him, anticipate he will discharge to home when medically ready Continue home diet, will defer to spouse regarding specifics on what he does well with (6) Chronic suprapubic catheter: Due to be changed on 04/22 (7) Neurogenic bladder: Secondary from sequela of multiple sclerosis Continue suprapubic cath as above (8) Neck mass: Incidentally seen on imaging again Spouse denies further work-up Will refer discharge (9) Hydronephrosis: Imaging reviewed Right-sided hydronephrosis with nonobstructive nephrolithiasis No obstructive stones noted History of prior stents (10) Positive D dimer: Plan DVT prophylaxis: Lovenox CODE STATUS: Full code Attestations Medical Necessity Statement*: Patient requires ongoing hospitalization for IV antibiotics, IV fluids, and supportive care for Klebsiella bacteremia sepsis. Coding Level of Care Code Acute Code for [facility] Fw Diagnoses Sepsis A41.9 Acute UTI N39.0 Decubitus ulcer of left hip, stage 3 L89.223 Acute on chronic anemia D64.9 Multiple sclerosis G35 Chronic suprapubic catheter Z93.59 Neurogenic bladder N31.9 Neck mass R22.1 Hydronephrosis N13.30 Positive D dimer R79.89
[2023-04-22 14:06] LABS: Thyroid Stimulating Hormone 1.53 uIU/mL (0.27-4.20)
[2023-04-23] VITALS (7 sets, daily range): BP systolic 126–134; BP diastolic 76–86; PULSE 75–90; RESP 14–19; TEMP 36.7–37.6; O2SAT 97–98
[2023-04-23 05:54] LABS: Basophils % 0.6 %; Eosinophils # 0.1 10^3/uL (0.0-0.8); Eosinophils % 0.9 %; Hematocrit 35.7 % (42.0-52.0); Hemoglobin 11.2 g/dL (11.7-16.6); Lymphocytes # 2.2 10^3/uL (0.8-4.8); Lymphocytes % 33.8 %; Mean Corpuscular HGB Conc 31.4 g/dL (30.0-36.0); Mean Corpuscular Hemoglobin 27.9 pg (28.0-34.0); Mean Corpuscular Volume 88.8 fl (80-94); Mean Platelet Volume 8.3 fL (7.4-10.4); Monocytes # 0.6 10^3/uL (0.2-0.9); Neutrophils # 3.11 10^3/uL (1.8-7.7); Neutrophils % 48.5 %; Nucleated Red Blood Cells % 0 %; Platelet Count 372 10^3/cmm (130-400); Red Blood Count 4.02 10^6/uL (4.1-5.3); White Blood Count 6.4 10^3/uL (4.0-10.0)
[2023-04-23 06:14] LABS: Albumin Level 2.9 g/dL (3.5-5.2); Anion Gap 13.6 (5-19); Blood Urea Nitrogen 7 mg/dL (6-20); Calcium 7.7 mg/dL (8.5-10.5); Carbon Dioxide 25 mmol/L (22-29); Chloride 105 mmol/L (98-107); Glomerular Filtration Rate 310.1 mL/min (90-130); Glucose 105 mg/dL (65-115); Magnesium 1.8 mg/dL (1.7-2.3); Potassium 3.6 mmol/L (3.5-5.1); Sodium 140 mmol/L (136-145)
[2023-04-23 06:16] LABS: Slide Review Slide Review Perform
[2023-04-23] MEDS: meropenem 1,000 MG in sodium chloride 0.9% (plus) 50 ML 100 MG IV (07:24)
[2023-04-23] MEDS: pantoprazole 40 mg SDV IVP (08:12)
[2023-04-23] MEDS: enoxaparin 40 mg/0.4 mL Syringe SUBCUT (08:12)
--- NOTE | 2023-04-23 10:08 | US_ITS ---
WS: [id number] THYROID ULTRASOUND HISTORY: Neck Mass COMPARISON: Chest CT 04/21/2023 Right lobe: 1.4 cm x 1.4 cm x 4.2 cm (w x ap x l). Volume: 4.1 cm3. Normal size and echotexture. No significant are dominant nodules are present. Left lobe: 7.5 cm x 5.9 cm x 8.4 cm (w x ap x l). Volume: 195.0 cm3. Markedly enlarged heterogeneous thyroid. Increased vascularity throughout the left thyroid. There is a large mass replacing the left thyroid and extending into the isthmus. Mass measures at least 7.5 x 5.9 x 8.3 cm. Mass has slowly increased in size since 2016 as noted on prior imaging studies. No echo genic foci. Isthmus: 0.8 cm. IMPRESSION: Large solid mass with increased vascularity replacing the left thyroid and extending into the isthmus . Recommend evaluation by ENT for possible ultrasound-guided FNA. Neoplasm needs to be excluded.
--- NOTE | 2023-04-23 10:52 | PC.CHAP ---
Pastoral Care Encounter/Spiritual Assessment Type of Contact [] Declined mortgage loan assistant visit [] Patient/Family/Request visit [] Outpatient visit [] Follow-up visit [] Physician referral [] Code/Alert [x] Routine visit [] Staff referral [] Actively dying [] Patient sleeping [] Family support [] [] Out of room [] Palliative care [] [x] Receiving care in room [] Pre-surgical visit [] Trauma [] Long length of stay [] ICU visit [] Other: Relational/Emotional Strength [x] Patient feels connected with others/family/visitors/staff [] Distress [] Loneliness/isolation [] Abandonment Spirituality of Patient [x] Person of Jia [] Attends Restoration of their Jia [x] Believes in Prayer [] Reads Bible or Methodist materials [] There are Spiritual issues to be addressed Circulation Sales Representative Interventions [x] Prayer [x] Active listening [x] Non-anxious presence [x] Spiritual/emotional support [] Crisis/trauma care [x] Spiritual counseling [] Bereavement support [] Provided bereavement packet [] Provided Bible/devotional materials [] Provided toy/stuffed animal, coloring book to patient or family member [] Provided Communion [] Anointing/[place] [] Salvation [x] Completed spiritual assessment [] Other: Impact on Illness or Injury [] Angry [] Fearful [] Anxious [] Often cries [] Exhaustion [] Unable to work [] Unable to attend yarsani [] Unable to walk/stand [] Unable to read [] Unable to drive [] Unable to eat/drink [] Unable to sleep [] Unable to be with family [] Patient intubated [] Other: Summary removed [facility] feels better has a good attitude well go home Time spent with patient 10 mins
--- NOTE | 2023-04-23 15:22 | PM.PN ---
Subjective Subjective: Patient seen and evaluated. Spouse is bedside. Language line tablet for Peruvian-Swedish translation utilized. Patient continues to have a poverty of word in the setting of multiple sclerosis. She reports that she does not feel as good today. He is more fatigued and tired. Otherwise he seems to be doing okay. I discussed the plan of care including the culture and sensitivity results from the bacteremia. Also discussed the planned ultrasound for his neck mass. Patient and spouse in agreement. All questions answered. Medications: Reviewed: Yes Vitals/I&O/Wt Last Vital Signs Temp 98.5 F 04/23/23 11:20 Pulse 90 04/23/23 11:20 Resp 15 04/23/23 11:20 BP 133/80 04/23/23 11:20 Pulse Ox 97 04/23/23 11:20 O2 Del Method Room Air 04/23/23 11:20 04/23/23 04/23/23 04/23/23 06:59 14:59 22:59 Intake Total 50 / 1492.5 290 / 290 Output Total 1200 / 1750 Balance -1150 / -257.5 290 / 290 Physical Exam Narrative: General: Patient is awake. Frail and chronically ill appearing. Lying in bed. Appears more fatigued today. Head: Eyes are disconjugate. Irises are different colors. Corneas are possibly lens are slightly cloudy. Eye exam is unchanged from prior exams. Neck: No JVD. Supple. Palpable mass. Cardiovascular: No peripheral edema. Lungs: Nonlabored. No accessory muscle use. On room air. Skin: No jaundice. A complete skin exam was not performed [sacral rash not observed on exam] Abdomen: Not distended. Extremities: No cyanosis. Musculoskeletal: Poor muscle mass. Neurological: No myoclonus. Data 04/23/23 05:49 04/23/23 05:49 Micro: Microbiology 04/20/23 20:55 Urine Culture - Final Urine,Clean Catch Klebsiella pneumoniae Enterobacter cloacae 04/21/23 18:52 Blood Culture - Preliminary Blood NEGATIVE TO DATE 04/21/23 18:52 Blood Culture - Preliminary Blood NEGATIVE TO DATE 04/20/23 20:10 Blood Culture - Preliminary Blood Klebsiella pneumoniae 04/20/23 20:23 Blood Culture - Preliminary Blood Klebsiella pneumoniae A&P Assessment and plan (1) Sepsis: Source: Klebsiella pneumoniae UTI/pyelonephritis/bacteremia Urine and blood cultures reviewed Discontinue meropenem Start ciprofloxacin Antipyretics as needed (2) Acute UTI: Antibiotics as above (3) Decubitus ulcer of left hip, stage 3: POA Wound care (4) Acute on chronic anemia: Monitor blood counts (5) Multiple sclerosis: With significant chronic debility, bedbound, mostly nonverbal Family cares for him, anticipate he will discharge to home when medically ready, possibly as early as Thursday Continue home diet, will continue to listen to spouse regarding specifics on what he does well with (6) Chronic suprapubic catheter: Reportedly changed 04/22 (7) Neurogenic bladder: Secondary from sequela of multiple sclerosis Continue suprapubic cath as above (8) Neck mass: TSH WNL Thyroid US Plan for outpt referral at in (9) Hydronephrosis: No obstructive uropathy noted (10) Positive D dimer: Plan DVT prophylaxis: Lovenox CODE STATUS: Full code Attestations Medical Necessity Statement*: Patient requires ongoing hospitalization for treatment of sepsis. Coding Level of Care Code Acute Code for [facility] Diagnoses Sepsis A41.9 Acute UTI N39.0 Decubitus ulcer of left hip, stage 3 L89.223 Acute on chronic anemia D64.9 Multiple sclerosis G35 Chronic suprapubic catheter Z93.59 Neurogenic bladder N31.9 Neck mass R22.1 Hydronephrosis N13.30 Positive D dimer R79.89
[2023-04-23] MEDS: ciprofloxacin 500 mg Tablet PO (20:46)
[2023-04-24 00:25] VITALS: BP 136/88; PULSE 83; RESP 19; TEMP 36.9; O2SAT 98
[2023-04-24 03:50] VITALS: BP 125/80; PULSE 77; RESP 18; TEMP 37.1; O2SAT 97
[2023-04-24 05:07] LABS: Hematocrit 36.8 % (42.0-52.0); Hemoglobin 11.8 g/dL (11.7-16.6); Mean Corpuscular HGB Conc 32.1 g/dL (30.0-36.0); Mean Corpuscular Volume 87.2 fl (80-94); Mean Platelet Volume 8.3 fL (7.4-10.4); Platelet Count 431 10^3/cmm (130-400); Red Blood Count 4.22 10^6/uL (4.1-5.3); Red Cell Distribution Width 13.8 % (12.1-15.1); White Blood Count 6.3 10^3/uL (4.0-10.0)
[2023-04-24 05:26] LABS: Anion Gap 14.4 (5-19); Blood Urea Nitrogen 10 mg/dL (6-20); Calcium 8.2 mg/dL (8.5-10.5); Carbon Dioxide 25 mmol/L (22-29); Chloride 102 mmol/L (98-107); Glomerular Filtration Rate 495.2 mL/min (90-130); Glucose 95 mg/dL (65-115); Magnesium 1.8 mg/dL (1.7-2.3); Phosphorus 2.3 mg/dL (2.5-4.5); Potassium 3.4 mmol/L (3.5-5.1); Sodium 138 mmol/L (136-145)
[2023-04-24 05:37] LABS: Slide Review Slide Review Perform; Total Cells Counted 100 (0-100)
[2023-04-24 05:38] LABS: Eosinophils 1 %; Giant Platelets Trace; Lymphocytes 31 %; Monocytes Absolute 0.9 10^3/cmm (0.1-0.6); Platelet Estimate Increased (Normal); Segmented Neutrophils 48 %
[2023-04-24 07:40] VITALS: PULSE 86; RESP 18; O2SAT 97
--- NOTE | 2023-04-24 09:29 | P.DS_ITS ---
Discharge Providers Date of Admission: 04/20/23 22:19 Date of Discharge: April 24, 2023 Attending Provider at Admission: Nicki Yu MD Attending Provider at Discharge: Reno Salinas MD Primary Care Provider: Gaby Ruiz MD Diagnoses at Discharge Discharge Diagnosis (1) Sepsis: Status: Inactive (2) Acute UTI: Status: Inactive (3) Decubitus ulcer of left hip, stage 3: Status: Acute (4) Acute on chronic anemia: Status: Resolved (5) Multiple sclerosis: Status: Acute Permanent problem details: History of (6) Chronic suprapubic catheter: Status: Acute (7) Neurogenic bladder: Status: Acute (8) Neck mass: Status: Acute (9) Hydronephrosis: Status: Acute (10) Positive D dimer: Status: Resolved Reason for Visit Reason for Visit: fever Hospital Course Hospital Course Delvin Mittal is a 57-year-old Kosovan-speaking male with a past medical history significant for multiple sclerosis with subsequent bedbound debility, neurogenic bladder with chronic indwelling Platt catheter, and bilateral nephrolithiasis who presented with fever, found to have sepsis secondary to Klebsiella pneumoniae urinary tract infection, pyelonephritis, and bacteremia. Patient was treated with broad-spectrum antibiotics and narrowed to oral ciprofloxacin at discharge. His symptomatology improved. His urinary catheter was exchanged (typically exchanged monthly). Patient also noted to incidentally have neck mass had grown in size on prior imaging. Thyroid function was within normal limits. Patient referred for ultrasound-guided biopsy. He will need referred to the appropriate specialist pending the biopsy results. Physical Exam Narrative: General: Patient is awake.? Alert. Chronically ill appearing.? Neck: No JVD.? Supple.? Palpable mass. Cardiovascular:? No peripheral edema. Normal S1 and S2. No murmur. Lungs: Nonlabored.? No accessory muscle use.? No crackles. No wheezing. No rales. Skin: No jaundice. Abdomen: Not distended. Extremities: No cyanosis. Musculoskeletal: Poor muscle mass. Neurological: No myoclonus. Discharge Data Studies Completed and Pending Completed Studies During Hospitalization Category Date Time Status CT abdomen pelvis wo con [id number] Stat Cat Scan 04/20/23 22:40 Completed CTA PE [CT angio chest PE protcl [id number]] Routine Cat Scan 04/21/23 07:30 Completed XR chest 1V portable [id number] Stat Exams 04/20/23 19:55 [place] [id number] Routine Ultrasound 04/21/23 23:52 Completed US thyroid [id number] Routine Ultrasound 04/23/23 10:08 Completed Pending at discharge Category Date Time Status Blood Culture Stat Lab 04/20/23 20:23 Results Blood Culture Stat Lab 04/21/23 18:52 Results Radiology Impressions Chest X-Ray 04/20/23 19:55 IMPRESSION: No acute findings. Abdomen/Pelvis CT 04/20/23 22:40 IMPRESSION: 1. Moderate to severe right hydronephrosis with multiple nonobstructing stones, the largest of these is a 9.6 mm renal stone within the pelvis. 2. Urinary tract infection, recommend clinical correlation and urinalysis. 3. Possible right pyelonephritis. Laboratory Results WBC 6.3 10^3/uL (4.0-10.0) 04/24/23 04:34 RBC 4.22 10^6/uL (4.1-5.3) 04/24/23 04:34 Hgb 11.8 g/dL (11.7-16.6) 04/24/23 04:34 Hct 36.8 % (42.0-52.0) L 04/24/23 04:34 MCV 87.2 fl (80-94) 04/24/23 04:34 MCH 28.0 pg (28.0-34.0) 04/24/23 04:34 MCHC 32.1 g/dL (30.0-36.0) 04/24/23 04:34 RDW 13.8 % (12.1-15.1) 04/24/23 04:34 Plt Count 431 10^3/cmm (130-400) H 04/24/23 04:34 MPV 8.3 fL (7.4-10.4) 04/24/23 04:34 Neut % (Auto) 48.5 % 04/23/23 05:49 Lymph % (Auto) Not Reportable 04/24/23 04:34 [place] % (Auto) Not Reportable 04/24/23 04:34 Eos % (Auto) 0.9 % 04/23/23 05:49 Baso % (Auto) 0.6 % 04/23/23 05:49 Neut # (Auto) 3.11 10^3/uL (1.8-7.7) 04/23/23 05:49 Lymph # (Auto) Not Reportable 04/24/23 04:34 [place] # (Auto) Not Reportable 04/24/23 04:34 Eos # (Auto) 0.1 10^3/uL (0.0-0.8) 04/23/23 05:49 Baso # (Auto) 0.0 10^3/uL (0.0-0.1) 04/23/23 05:49 Nucleated RBC % (auto) 0 % 04/23/23 05:49 Total Counted 100 (0-100) 04/24/23 04:34 Atypical Lymphs % Not Reportable 04/24/23 04:34 Segmented Neutrophils 48 % 04/24/23 04:34 Abs Segm Neuts (Man) 3.0 10/cmm (1.6-7.1) 04/24/23 04:34 Band Neutrophils Not Reportable 04/24/23 04:34 Lymphocytes (Manual) 31 % 04/24/23 04:34 Monocytes (Manual) 14.0 % 04/24/23 04:34 Absolute Monocytes 0.9 10^3/cmm (0.1-0.6) H 04/24/23 04:34 Eosinophils (Manual) 1 % 04/24/23 04:34 Absolute Eosinophils 0.0 10^3/cmm (0.0-0.7) 04/24/23 04:34 Basophils (Manual) 0.0 % 04/24/23 04:34 Absolute Basophils 0.0 10^3/cmm (0.0-0.2) 04/24/23 04:34 Metamyelocytes 1.0 % 04/22/23 04:53 Myelocytes 6.0 % 04/24/23 04:34 Nucleated RBCs # 0.0 /100WBC 04/23/23 05:49 Platelet Estimate Increased (Normal) 04/24/23 04:34 Giant Platelets Trace 04/24/23 04:34 D-Dimer 10.45 ug/mIFEU (0-0.59) H 04/20/23 20:23 Sodium 138 mmol/L (136-145) 04/24/23 04:34 Potassium 3.4 mmol/L (3.5-5.1) L 04/24/23 04:34 Chloride 102 mmol/L (98-107) 04/24/23 04:34 Carbon Dioxide 25 mmol/L (22-29) 04/24/23 04:34 Anion Gap 14.4 (5-19) 04/24/23 04:34 BUN 10 mg/dL (6-20) 04/24/23 04:34 Creatinine 0.2 mg/dL (0.7-1.2) L 04/24/23 04:34 GFR Calculation 495.2 mL/min (90-130) H 04/24/23 04:34 Glucose 95 mg/dL (65-115) 04/24/23 04:34 Calculated Osmolality 283 mOsm/kg (285-295) L 04/21/23 06:07 Lactic Acid 0.7 mmol/L (0.5-2.2) 04/20/23 20:23 Calcium 8.2 mg/dL (8.5-10.5) L 04/24/23 04:34 Phosphorus 2.3 mg/dL (2.5-4.5) L 04/24/23 04:34 Magnesium 1.8 mg/dL (1.7-2.3) 04/24/23 04:34 Total Bilirubin 0.9 mg/dL (0.15-1.2) 04/20/23 20:23 AST 19 U/L (0-40) 04/20/23 20:23 ALT 35 U/L (0-41) 04/20/23 20:23 Alkaline Phosphatase 184 U/L (40-130) H 04/20/23 20:23 C-Reactive Protein 160.0 mg/L (0.0-4.9) H 04/21/23 06:07 Total Protein 7.3 g/dL (6.6-8.7) 04/20/23 20:23 Albumin 3.0 g/dL (3.5-5.2) L 04/24/23 04:34 Globulin 3.9 g/dL (1.3-4.6) 04/20/23 20:23 Procalcitonin 0.49 ng/mL (0-0.5) 04/22/23 04:53 TSH 1.53 uIU/mL (0.27-4.20) 04/22/23 04:53 Urine Color Yellow (Yellow) 04/20/23 20:55 Urine Appearance Cloudy (CLEAR) A 04/20/23 20:55 Urine pH 6 (5-7) 04/20/23 20:55 Ur Specific Matthews 1.010 (1.005-1.030) 04/20/23 20:55 Urine Protein Trace (Negative) 04/20/23 20:55 Urine Glucose (UA) Norm (Normal) 04/20/23 20:55 Urine Ketones Negative (Negative) 04/20/23 20:55 Urine Blood 3+ (Negative) H 04/20/23 20:55 Urine Nitrate Negative (Negative) 04/20/23 20:55 Urine Bilirubin Neg (Negative) 04/20/23 20:55 Urine Urobilinogen Neg mg/dL (Negative) 04/20/23 20:55 Ur Leukocyte Esterase 2+ (Negative) H 04/20/23 20:55 Urine RBC 15-25 /hpf (0-2) H 04/20/23 20:55 Urine WBC 40-55 /hpf (0-5) H 04/20/23 20:55 Ur Squamous Epith Cells None /hpf (0-5) 04/20/23 20:55 Amorphous Sediment Not Reportable 04/20/23 20:55 Urine Bacteria 3+ /hpf (NONE) H 04/20/23 20:55 Vitals Last Vital Signs Temp 98.8 F 04/24/23 03:50 Pulse 77 04/24/23 03:50 Resp 18 04/24/23 03:50 BP 125/80 04/24/23 03:50 Pulse Ox 97 04/24/23 03:50 O2 Del Method Room Air 04/23/23 20:00 Discharge Plan Discharge Patient Disposition: Home Condition: Stable Prescriptions: New ciprofloxacin HCl 500 mg Tablet 500 mg PO BID@0900,2100 11 Days Qty: 22 0RF Continued sodium chloride 0.9 % solution See Rx Instructions .ROUTE .COMPLEX Rx Instructions: USE 60 ML TO IRRIGATE SP TUBE TWICE DAILY Procto-Med HC 2.5 % cream with perineal applicator 1 applic topical TID triamcinolone acetonide 0.1 % lotion 1 applic TOPICAL TID Discharge Orders: Discharge Order (Routine); Ordered 04/24/23 Ordered By: Reno Salinas Other Ambulatory Orders: US biopsy/FNA thyroid [id number] (Routine) Timeframe: 1 Week Facility: [facility] - Location: Radiology Ordered By: Reno Salinas Referrals: Gaby Ruiz MD [Primary Care Provider] - 4-7 days (We have notified your physician's clinic of the need for a follow-up appointment to be scheduled. If you have not heard from them within the next 2 business days, please call them directly. You may also reach out to our purchasing manager at [phone] and she can assist you. DR RUIZ USUALLY DOES HOME VISITS. SHE WILL CALL HIM WITH A TIME) Discharge Diet: Advance as tolerated and Usual diet Discharge Activity: Resume usual activity and Increase activity as tolerated Patient Instructions: Ciprofloxacin (By mouth) (Cipro), Urinary Tract Infection in Men (DC), Sepsis (DC), Opioid Safety Activity Restrictions/Additional Instructions: 1. Take medications as prescribed. 2. Radiology will call to schedule neck biopsy. 3. Follow up with primary care provider. Discharge Attestations Time Spent in Discharge Care*: greater than 30 min Status at Discharge: Cognitive status at discharge: moderately impaired cognition , Behavioral status at discharge: cooperative , Quality Metrics Clinical Quality Measures [ No reported AMI, CVA or VTE this stay] Coding Level of Care Code Acute Code for [facility] Diagnoses Sepsis A41.9 Acute UTI N39.0 Decubitus ulcer of left hip, stage 3 L89.223 Acute on chronic anemia D64.9 Multiple sclerosis G35 Chronic suprapubic catheter Z93.59 Neurogenic bladder N31.9 Neck mass R22.1 Hydronephrosis N13.30 Positive D dimer R79.89
[2023-04-24] MEDS: ciprofloxacin 500 mg Tablet PO (09:39)
[2023-04-24] MEDS: enoxaparin 40 mg/0.4 mL Syringe SUBCUT (09:43)
[2023-04-24 11:01] VITALS: PULSE 86; RESP 18; O2SAT 97
[2023-04-24 11:04] VITALS: PULSE 86; RESP 18; O2SAT 97
[2023-04-24 11:17] VITALS: BP 128/82; PULSE 82; RESP 15; TEMP 36.8; O2SAT 97
== END 2023-04-24 11:22 | disposition home or self-care (01) | DRG 698 ==
LOC: ER 22:07 → MEDSURG 22:19
PROVIDERS: Admitting Provider Internal Medicine; Emergency Provider Family Medicine; PCP Family Medicine; Visit Provider Internal Medicine
DX: T83.511A Infection and inflammatory reaction due to indwelling urethral catheter, initial encounter (principal); A41.9 Sepsis, unspecified organism; L89.223 Pressure ulcer of left hip, stage 3; N12 Tubulo-interstitial nephritis, not specified as acute or chronic; Y73.8 Miscellaneous gastroenterology and urology devices associated with adverse incidents, not elsewhere classified; Z96.0 Presence of urogenital implants; B96.1 Klebsiella pneumoniae [K. pneumoniae] as the cause of diseases classified elsewhere; G35 Multiple sclerosis; Z74.01 Bed confinement status; N31.9 Neuromuscular dysfunction of bladder, unspecified; N20.0 Calculus of kidney; R22.1 Localized swelling, mass and lump, neck; K59.09 Other constipation; D64.9 Anemia, unspecified; M79.89 Other specified soft tissue disorders
CPT/HCPCS: 36415; 71045; 71275; 74176; 76536; 80048; 80053; 80069; 81001; 83605; 83735; 84145; 84443; 85007; 85025; 85378; 86140; 87040; 87077; 87086; 87150; 87186; 87205; 93970; 96365; 96372; 96375; 99285; C9113; J0696; J1650; J1885; J2185; J7030; J7120; Q9967

== ENCOUNTER 2023-09-25 10:56 | Emergency (ER) | payer MEDICAID, SELFPAY ==
[2023-09-25 11:02] VITALS: BP 149/96; PULSE 78; RESP 18; TEMP 36.7; O2SAT 96; BMI 23.7
--- NOTE | 2023-09-25 11:20 | W.ED.SKABFB ---
HPI - Skin/Abscess/Foreign Bdy General: Chief complaint: Skin/Abscess/Foreign Body Stated complaint: neck infection Time Seen by Provider: 09/25/23 11:08 Source: patient and family Mode of arrival: wheelchair Limitations: no limitations History of Present Illness: Patient is a 58-year-old male here with his along with his daughter on the phone who acts as a sheriff's officer here for concerns of an infection to the posterior aspect of his neck. According to daughter patient has had an area on his neck for a long time that will intermittently drain before reportedly clearing up on its own. She states about a week ago it began draining. They were seen by their primary care provider and placed on Keflex and Mupirocin ointment. Daughter states she felt like area initially improved but then began draining again. They reportedly sent a picture to the primary care provider who sent them to the emergency department. No fevers. Patient has a history of MS and is minimally verbal and non-ambulatory. MD complaint: abscess/boil Onset (ago): day(s) Tetanus up to date: yes Location: neck Severity: mild Pain Consistency: intermittent Relieving factors: none Exacerbating factors: none Context: none Associated symptoms: Reports no associated symptoms; Deny fever(s), nausea or vomiting Treatments prior to arrival: antibiotic Review of Systems Const: Denies: fever(s) GI: Denies: nausea or vomiting Skin/Breast: Reports: other (abscess to neck) [facility] ED PFSH: Medical History Sepsis Acute UTI Bilateral ureteral calculi Bilateral renal stones Chronic constipation Neurogenic bladder Urinary retention Multiple sclerosis History of Surgical History Status post cholecystectomy Chronic suprapubic catheter Family History Other Pancreatic cancer Social History Alcohol intake: never Caregiver/support person: Yes Marital status: Physical Exam Const: COMMON NORMALS: alert EXAM LIMITATIONS: other limitations (minimally verbal, non-ambulatory; chronically ill appearing) GENERAL APPEARANCE: cooperative Neck/C-Spine: COMMON NORMALS: full ROM, no lymphadenopathy and no meningeal signs NECK IMAGES: 1. draining/infected sebaceous cyst; about quarter sized Resp: COMMON NORMALS: normal respiratory effort Cardio: COMMON NORMALS: regular rate and regular rhythm RATE: regular rate RHYTHM: regular rhythm Neuro: SENSORIUM/ORIENTATION: Yes alert MENINGEAL SIGNS: Yes no meningeal signs Course Vital Signs: Vital signs: Vital Signs Temperature 98.1 F 09/25/23 11:02 Pulse Rate 70 09/25/23 11:24 Respiratory Rate 14 09/25/23 11:24 Blood Pressure 149/96 09/25/23 11:24 Pulse Oximetry 97 09/25/23 11:24 Oxygen Delivery Me thod Room Air 09/25/23 11:24 MDM - Skin/Abscess/Foreign Bdy Medicial Decision Making Patient here with an infected sebaceous cyst to his left posterior neck. This was actively draining. Culture obtained. Wound was fully expressed with a large amount of sebaceous thick material. Cavity will be packed. Patient will be placed on antibiotics. Discussed referral to general surgery for cyst removal however patient declines. They would like to follow-up with her primary care provider. Medical Records I reviewed the patient's medical records. No radiology studies performed this visit Discharge Plan Discharge Patient Disposition: Home Clinical Impression: Infected sebaceous cyst of skin Condition: Stable Prescriptions: New Bactrim DS 800-160 mg tablet 1 tab PO BID 7 Days Qty: 14 0RF No Action sodium chloride 0.9 % solution See Rx Instructions .ROUTE .COMPLEX Rx Instructions: USE 60 ML TO IRRIGATE SP TUBE TWICE DAILY Procto-Med HC 2.5 % cream with perineal applicator 1 applic topical TID triamcinolone acetonide 0.1 % lotion 1 applic TOPICAL TID Discharge Orders: Discharge ED (Routine); Ordered 09/25/23 Ordered By: Indiana Colon Referrals: Gaby Martines MD [Primary Care Provider] - Patient Instructions: Cyst (ED) Activity Restrictions/Additional Instructions: As we discussed patient did not want a referral to general surgery for evaluation of cyst removal at this time. I will place him on antibiotics. Culture was obtained. You may remove packing in 72 hours. Please follow-up with your primary care provider. Coding Level of Care Code ED Vacuum Frame Operator for Rona Machuca
[2023-09-25 11:24] VITALS: BP 149/96; PULSE 70; RESP 14; O2SAT 97
[2023-09-25 13:02] VITALS: BP 141/92; PULSE 72; RESP 16; O2SAT 97
[2023-09-25 13:56] VITALS: BP 142/95; PULSE 76; RESP 15; O2SAT 96
[2023-09-25 14:26] VITALS: BP 142/95; PULSE 76; RESP 15; TEMP 36.7; O2SAT 96
== END 2023-09-25 14:40 | disposition home or self-care (01) ==
PROVIDERS: Emergency Provider Physician Assistant; PCP Family Medicine
DX: L72.3 Sebaceous cyst (principal); G35 Multiple sclerosis
CPT/HCPCS: 87070; 87075; 87205; 99283

== ENCOUNTER 2024-09-06 12:36 | Inpatient (IN) | payer MEDICAID, SELFPAY ==
[2024-09-06] VITALS (9 sets, daily range): BP systolic 134–184; BP diastolic 91–108; PULSE 105–127; RESP 15–20; TEMP 37.2–37.5; O2SAT 92–96; BMI 23.7
--- NOTE | 2024-09-06 12:39 | ED_ITS ---
HPI - General Adult 2 General: Chief complaint: Fever Stated complaint: Fever Time Seen by Provider: 09/06/24 12:37 History of Present Illness: 59-year-old female who presents to the e mergency room with complaints of cough and a fever at home. He has had problems with urosepsis in the past. Initially on arrival he is tachycardic his oxygen sats are well-maintained. No reports of vomiting or diarrhea no skin breakdown or ulcerations. Patient and his speak [place]ian one of our nurses who speaks fluent [place]ian helped to translate. Associated symptoms: Deny chest pain, dyspnea or rash Related Data Home Medications Medication Instructions Recorded Confirmed sodium chloride 0.9 % irrigation See Rx Instructions .Route .COMPLEX 04/21/23 09/06/24 solution bisacodyl 10 mg rectal suppository 10 mg [place] DAILY PRN CONSTAPATION 09/06/24 09/06/24 cranberry extract 650 mg capsule 1,300 mg PO DAILY 09/06/24 09/06/24 (Theracran) hydrocortisone 1 % topical cream 1 applic topical DAILY 09/06/24 09/06/24 with perineal applicator hbshdqmvpkqxq-MW-tmfrxichnbiuw 5 15 ml PO DAILY PRN Cold Symptoms 09/06/24 09/06/24 mg-10 mg-325 mg/15 mL oral liquid (Daytime Cold-Flu) triamcinolone acetonide 0.1 % 1 applic topical TID 09/06/24 09/06/24 lotion Previous Rx's Medication Instructions Recorded cefdinir 300 mg capsule 300 mg PO BID 10 days #20 caps 09/08/24 levofloxacin 750 mg tablet 750 mg PO DAILY 10 days #10 tabs 09/08/24 Allergies Allergy/AdvReac Type Severity Reaction Status Date / Time latex Allergy BURNING Verified 09/06/24 12:51 Review of Systems 2 Const: Reports: fever(s) and chills Card: Denies: chest pain Resp: Denies: dyspnea GI: Denies: abdominal pain : Denies: dysuria, urinary frequency or urinary urgency Musc: Denies: neck pain or back pain Skin/Breast: Denies: rash PFSH ED 2 PFSH: Medical History Sepsis Acute UTI Bilateral ureteral calculi Bilateral renal stones Chronic constipation Neurogenic bladder Urinary retention Multiple sclerosis History of Surgical History Status post cholecystectomy Chronic suprapubic catheter Family History Other Pancreatic cancer Social History Alcohol intake: never Caregiver/support person: Yes Marital status: Physical Exam 2 Const: GENERAL APPEARANCE: cooperative ORIENTATION/CONSCIOUSNESS: Yes awake, Yes oriented to person, Yes oriented to place and Yes oriented to time HENMT: COMMON NORMALS: normocephalic, atraumatic and hearing grossly normal bilaterally HEAD & SCALP: normocephalic and atraumatic Resp: COMMON NORMALS: normal respiratory effort, No retractions, No use of accessory muscles and clear to auscultation bilaterally AUSCULTATION: clear to auscultation bilaterally Cardio: COMMON NORMALS: regular rate, regular rhythm and No murmurs present (Cardio) RATE: regular rate RHYTHM: regular rhythm GI: COMMON NORMALS: Soft to palpation and No hepatosplenomegaly present A USCULTATION: Yes normoactive bowel sounds PALPATION: Yes Soft to palpation, No Tenderness to palpation present (GI), No Guarding due to palpation present (GI) and Yes No hepatosplenomegaly present Extremity: COMMON NORMALS: normal to inspection, capillary refill normal, no clubbing, cyanosis or edema, no calf tenderness and no pedal edema Neuro: SENSORIUM/ORIENTATION: Yes oriented to person, Yes oriented to place and Yes oriented to time Skin: COMMON NORMALS: no rashes or lesions noted GENERAL SKIN EXAM: no rashes or lesions noted Course 2 Vital Signs: Vital signs: Vital Signs Temperature 98.3 F 09/08/24 18:46 Pulse Rate 88 09/08/24 18:46 Respiratory Rate 14 09/08/24 15:52 Blood Pressure 146/87 09/08/24 18:46 Pulse Oximetry 93 09/08/24 18:46 Oxygen Delivery Me thod Room Air 09/08/24 15:52 MDM - General Adult Medical Decision Making Cystitis RSV history of renal stones no obstruction at this time will admit cultures done started on antibiotics. Discussed with hospitalist orders written CT does not show any ureteral lithiasis or obstruction. Lab Data 09/08/24 03:55 09/08/24 03:55 Radiology Impressions Chest X-Ray 09/06/24 13:27 Impression: Negative chest. Abdomen/Pelvis CT 09/06/24 16:15 IMPRESSION: 1. Multiple right renal calculi, with the largest measuring 8.5 mm within the inferior right renal pelvis. Ragg-cf-nqpdfkpj hydronephrosis of the right kidney without findings of ureteral dilatation or ureteral calculus. Consider partial UPJ obstruction or underlying infection/pyelonephritis. 2. Suprapubic catheter within the urinary bladder which is decompressed. Mild adjacent stranding and consider inflammation/infection. 3. Suggestion of previous cholecystectomy. 4. Hnacd-yiskgyw-rgtv-left bibasilar atelectasis on the lung windows. 5. Ondwynoq-oq-onion stool content within the sigmoid colon and rectum. Laboratory Results WBC 8.64 10^3/uL (3.29-11.43) 09/06/24 13:00 RBC 5.24 10^6/uL (3.85-5.65) 09/06/24 13:00 Hgb 14.80 g/dL (11.27-16.99) 09/06/24 13:00 Hct 45.5 % (37-53) 09/06/24 13:00 MCV 86.8 fl (82-101) 09/06/24 13:00 MCH 28.2 pg (27-33) 09/06/24 13:00 MCHC 32.5 g/dL (30-55) 09/06/24 13:00 RDW 13.4 % (12.1-15.1) 09/06/24 13:00 Plt Count 241 10^3/cmm (157-399) 09/06/24 13:00 MPV 9.3 fL (7.4-10.4) 09/06/24 13:00 Neut % (Auto) 61.2 % 09/06/24 13:00 Lymph % (Auto) 27.2 % 09/06/24 13:00 Baldwin % (Auto) 9.5 % 09/06/24 13:00 Eos % (Auto) 1.3 % 09/06/24 13:00 Baso % (Auto) 0.3 % 09/06/24 13:00 Neut # (Auto) 5.29 10^3/uL (1.8-7.7) 09/06/24 13:00 Lymph # (Auto) 2.4 10^3/uL (0.8-4.8) 09/06/24 13:00 Baldwin # (Auto) 0.8 10^3/uL (0.2-0.9) 09/06/24 13:00 Eos # (Auto) 0.1 10^3/uL (0.0-0.8) 09/06/24 13:00 Baso # (Auto) 0.0 10^3/uL (0.0-0.1) 09/06/24 13:00 Nucleated RBC % (auto) 0 % 09/06/24 13:00 Nucleated RBCs # 0.0 /100WBC 09/06/24 13:00 Sodium 136 mmol/L (136-145) 09/06/24 13:39 Potassium 3.8 mmol/L (3.5-5.1) 09/06/24 13:39 Chloride 98 mmol/L (98-107) 09/06/24 13:39 Carbon Dioxide 23 mmol/L (22-29) 09/06/24 13:39 Anion Gap 18.8 (5-19) 09/06/24 13:39 BUN 9 mg/dL (6-20) 09/06/24 13:39 Creatinine 0.2 mg/dL (0.7-1.2) L 09/06/24 13:39 GFR Calculation 491.7 mL/min (90-130) H 09/06/24 13:39 Glucose 124 mg/dL (65-115) H 09/06/24 13:39 Calculated Osmolality 282 mOsm/kg (285-295) L 09/06/24 13:39 Lactic Acid 1.0 mmol/L (0.5-2.2) 09/06/24 13:08 Calcium 8.4 mg/dL (8.5-10.5) L 09/06/24 13:39 Magnesium 2.0 mg/dL (1.7-2.3) 09/06/24 13:39 Total Bilirubin 1.0 mg/dL (0.15-1.2) 09/06/24 13:39 AST 104 U/L (0-40) H 09/06/24 13:39 ALT 98 U/L (0-41) H 09/06/24 13:39 Alkaline Phosphatase 114 U/L (40-130) 09/06/24 13:39 Creatine Kinase 36 U/L (39-308) L 09/06/24 13:39 NT-Pro-B Natriuret Pep 37 pg/mL (0-125) 09/06/24 13:39 Total Protein 6.9 g/dL (6.6-8.7) 09/06/24 13:39 Albumin 3.5 g/dL (3.5-5.2) 09/06/24 13:39 Globulin 3.4 g/dL (1.3-4.6) 09/06/24 13:39 Lipase 26 U/L (13-60) 09/06/24 13:39 Procalcitonin 0.08 ng/mL (0-0.5) 09/06/24 13:39 Urine Color Yellow (Yellow) 09/06/24 12:53 Urine Appearance Turbid (CLEAR) A 09/06/24 12:53 Urine pH 6.0 (5-7) 09/06/24 12:53 Ur Specific Sutter 1.016 (1.005-1.030) 09/06/24 12:53 Urine Protein 1+ (Negative) A 09/06/24 12:53 Urine Glucose (UA) Negative (Normal) 09/06/24 12:53 Urine Ketones Trace (Negative) 09/06/24 12:53 Urine Blood 2+ (Negative) A 09/06/24 12:53 Urine Nitrate Negative (Negative) 09/06/24 12:53 Urine Bilirubin Negative (Negative) 09/06/24 12:53 Urine Urobilinogen 1.0 mg/dL (Negative) 09/06/24 12:53 Ur Leukocyte Esterase 3+ (Negative) A 09/06/24 12:53 Urine RBC 21-50 /hpf (0-2) H 09/06/24 12:53 Urine WBC >100 /hpf (0-5) H 09/06/24 12:53 Ur Squamous Epith Cells 0-5 /hpf (0-5) 09/06/24 12:53 Amorphous Sediment 2+ /hpf 09/06/24 12:53 Urine Bacteria 4+ /hpf (NONE) H 09/06/24 12:53 Hyaline Casts 51.70 /lpf 09/06/24 12:53 Coronavirus (PCR) Negative (Negative) 09/06/24 12:52 Influenza A (PCR) Negative (Negative) 09/06/24 12:52 Influenza Type B (PCR) Negative (Negative) 09/06/24 12:52 RSV (PCR) Positive (Negative) A 09/06/24 12:52 All radiology interpretation(s) finalized by discharge Discharge Plan Discharge Patient Disposition: Admitted As Inpatient Admit Provider: Natacha Bahena Clinical Impression: Cystitis, Multiple sclerosis, Bilateral ureteral calculi, Chronic suprapubic catheter, RSV infection Condition: Stable Discharge Diet: Usual diet Discharge Activity: Resume usual activity Coding Level of Care Code ED Telephone Triage Nurse for Rona Machuca
[2024-09-06 13:06] LABS: Bilirubin Urine Negative (Negative); Blood Urine 2+ (Negative); Glucose Urine UA Negative (Normal); Ketones Urine Trace (Negative); Leukocyte Esterase Urine 3+ (Negative); Nitrate Urine Negative (Negative); Protein Urine 1+ (Negative); Specific Gravity, Urine 1.016 (1.005-1.030); Urine Appearance Turbid (CLEAR); Urine Color Yellow (Yellow)
[2024-09-06 13:11] LABS: Basophils % 0.3 %; Eosinophils # 0.1 10^3/uL (0.0-0.8); Eosinophils % 1.3 %; Hematocrit 45.5 % (37-53); Lymphocytes # 2.4 10^3/uL (0.8-4.8); Lymphocytes % 27.2 %; Mean Corpuscular HGB Conc 32.5 g/dL (30-55); Mean Corpuscular Hemoglobin 28.2 pg (27-33); Mean Corpuscular Volume 86.8 fl (82-101); Mean Platelet Volume 9.3 fL (7.4-10.4); Monocytes # 0.8 10^3/uL (0.2-0.9); Monocytes % 9.5 %; Neutrophils # 5.29 10^3/uL (1.8-7.7); Neutrophils % 61.2 %; Nucleated Red Blood Cells % 0 %; Platelet Count 241 10^3/cmm (157-399); Red Blood Count 5.24 10^6/uL (3.85-5.65); Red Cell Distribution Width 13.4 % (12.1-15.1); White Blood Count 8.64 10^3/uL (3.29-11.43)
[2024-09-06 13:12] LABS: Add Urine Microscopic? YES; Bacteria Urine 4+ /hpf; RBC Urine 21-50 /hpf (0-2); Squamous Epithelial Cell Urine 0-5 /hpf (0-5); WBC Urine >100 /hpf (0-5)
[2024-09-06 13:24] LABS: UA Slide Review UA Slide Review Perf
[2024-09-06 13:25] LABS: Add Urine Culture? Yes; Amorphous Sediment Urine 2+ /hpf
--- NOTE | 2024-09-06 13:27 | XR_ITS ---
WS: [id number] Portable AP upright chest, 09/06/2024 Clinical Data: dyspnea/cough Comparison: Portable chest, 04/20/2023 Findings: No nodules, masses or effusions are seen. The heart is normal. The pulmonary vascularity is not increased. No pneumonia or pneumothorax is seen. There is deviation of the trachea from left to right probably from an enlarged left thyroid. XR/XR chest 1V portable [id number] Impression: Negative chest.
[2024-09-06 13:43] LABS: Influenza A NEGATIVE (Negative); Influenza B NEGATIVE (Negative); SARS-CoV-2 PCR NEGATIVE (Negative)
[2024-09-06 13:44] LABS: Respiratory Syncytial Virus Ce POSITIVE (Negative)
[2024-09-06] MEDS: piperacillin-tazobactam 3.375 GM in sodium chloride 0.9% (plus) 50 ML IV (14:20)
[2024-09-06 14:28] LABS: Alanine Aminotransferase 98 U/L (0-41); Albumin Level 3.5 g/dL (3.5-5.2); Alkaline Phosphatase 114 U/L (40-130); Anion Gap 18.8 (5-19); Aspartate Amino Transferase 104 U/L (0-40); Blood Urea Nitrogen 9 mg/dL (6-20); Calcium 8.4 mg/dL (8.5-10.5); Carbon Dioxide 23 mmol/L (22-29); Chloride 98 mmol/L (98-107); Creatine Phosphokinase 36 U/L (39-308); Creatinine Clr Calc Pharmacy 399.0097; Globulin 3.4 g/dL (1.3-4.6); Glomerular Filtration Rate 491.7 mL/min (90-130); Glucose 124 mg/dL (65-115); Lipase 26 U/L (13-60); NT Pro B Type Natriuretic Pept 37 pg/mL (0-125); Osmolality Calculated 282 mOsm/kg (285-295); Potassium 3.8 mmol/L (3.5-5.1); Sodium 136 mmol/L (136-145); Total Protein 6.9 g/dL (6.6-8.7)
--- NOTE | 2024-09-06 16:15 | CTR_ITS ---
PROCEDURE INFORMATION: Exam: CT Abdomen And Pelvis With Contrast Exam date and time: 09/06/2024 4:25 PM Age: 59 years old Clinical indication: Fever; Additional info: UTI, R/O hydronephrosis, HX of stones TECHNIQUE: Imaging protocol: Computed tomography of the abdomen and pelvis with contrast. Radiation optimization: All CT scans at this facility use at least one of these dose optimization techniques: automated exposure control; mA and/or kV adjustment per patient size (includes targeted exams where dose is matched to clinical indication); or iterative reconstruction. Contrast material: OMNI 350; Contrast volume: 100 ml; Contrast route: INTRAVENOUS (IV); COMPARISON: CT abdomen pelvis wo con [id number] 04/20/2023 11:15 PM RADIATION DOSE METRICS: Total DLP (mGy-cm): 539.04 FINDINGS: Tubes, catheters and devices: Suprapubic catheter is seen within a decompressed urinary bladder with small amount of air in association with the catheter balloon. Limited evaluation of the urinary bladder secondary to decompression. Mild adjacent stranding. Lungs: Lung windows of the visualized lung bases demonstrate tuzxs-ukscvev-fsvj-left bibasilar atelectasis. Liver: Normal. No mass. Gallbladder and biliary ducts: Gallbladder is not seen, likely previous cholecystectomy. No significant biliary ductal dilatation. Pancreas: Normal. No ductal dilation. Spleen: Normal. No splenomegaly. Adrenal glands: Normal. No mass. Kidneys and ureters: Multiple right renal calculi, the largest measuring approximately 8.5 mm within the inferior right renal pelvis. Mild to moderate hydronephrosis of the right kidney in relation to the left. No findings of ureteral calculus or ureteral dilatation. Mild right perinephric stranding. No renal cortical mass. Stomach and bowel: No obstruction. No significant mucosal thickening. Piekziyi-gz-ahrfu stool content within the rectum and sigmoid colon. No pericolonic mesenteric stranding Appendix: The appendix is visualized. No evidence of appendicitis. Intraperitoneal space: No free fluid or ascites. No free air. Vasculature: Abdominal aorta is unremarkable in caliber. Major vascular structures appear patent. Lymph nodes: Unremarkable. No enlarged lymph nodes. Urinary bladder: See Tubes, catheters and devices finding. Reproductive: Unremarkable as visualized. Bones/joints: Bone windows demonstrate spondylotic change with bridging anterior vertebral marginal spur formation L3-L4 level. Mild degenerative change about the hips. Soft tissues: Unremarkable. CT/CT abdomen pelvis w con* [id number] IMPRESSION: 1. Multiple right renal calculi, with the largest measuring 8.5 mm within the inferior right renal pelvis. Lbbd-nh-hgddbzfm hydronephrosis of the right kidney without findings of ureteral dilatation or ureteral calculus. Consider partial UPJ obstruction or underlying infection/pyelonephritis. 2. Suprapubic catheter within the urinary bladder which is decompressed. Mild adjacent stranding and consider inflammation/infection. 3. Suggestion of previous cholecystectomy. 4. Ehwae-dyrizzd-sojs-left bibasilar atelectasis on the lung windows. 5. Bbtkidge-ft-ppbex stool content within the sigmoid colon and rectum.
[2024-09-06] MEDS: iohexol 350 mg/mL 500 mL Btl (per mL) IV (16:27)
[2024-09-06] MEDS: vancomycin 2,000 MG/400 ML PIGGYBACK 200 MG IV (17:01)
--- NOTE | 2024-09-06 18:23 | PM.HP ---
Providers/Chief Complaint Admitting Physician: Natacha Bahena MD Primary Care Provider: Gaby Martines MD Chief Complaint: Fever History of Present Illness Delvin Mittal is a 59 year old male past medical history of severe debility from multiple sclerosis, neurogenic bladder, chronic suprapubic catheter, history of recurrent UTIs, history of Covid infection, recent history of UTI sensitive to cephalosporin, it was Enterobacter and Klebsiella, presented today with fever and cough and flulike symptoms. Patient tested positive for RSV. No report of vomiting or diarrhea. I called his daughter over the phone who helps in interpretation, her name is Natasha, is at the bedside who is also [place]an-speaking, patient started having fever 38 ?C for last few days associated with cough, is also concerned about blood in urine, she is stating that every time there is UTI he always get blood in urine otherwise his catheter gets changed by his on monthly basis and she does not notice urine most of the time. Patient eats without any signs of aspiration, he eats mechanical soft diet because he is edentulous. They use a dry primer powder blender to make soft diet. Patient has not seen an ENT surgeon, is stating that his neck gets swelling with antibiotics and every time he given fluids. 2020 patient had sepsis related to pyelonephritis stents/ureteral stents were placed by Dr. Cedeno. Patient has not reported significant shortness of breath, chest pain, no recent diarrhea. Workup in the ER revealed signs of UTI with partial obstructive kidney stone without worsening kidney function, patient is afebrile, not requiring oxygen, tachycardic, patient developed vancomycin associated rash, he was given Benadryl, vancomycin discontinued, he was put on Zosyn, previous urine culture showed Klebsiella and Enterobacteria sensitive to cephalosporins and Zosyn Patient is due for suprapubic catheter exchange by tomorrow Patient is able to communicate with his in [place]an, is able to understand his speech which is muffled and hard to understand Review of Systems General: Reports: ROS unobtainable due to medical condition Medications/Allergies Home Medications Medication Instructions Recorded Confirmed Last Taken Type sodium chloride 0.9 % irrigation See Rx Instructions .Route .COMPLEX 04/21/23 09/06/24 09/06/24 History solution bisacodyl 10 mg rectal suppository 10 mg [place] DAILY PRN CONSTAPATION 09/06/24 09/06/24 Unknown History cranberry extract 650 mg capsule 1,300 mg PO DAILY 09/06/24 09/06/24 09/05/24 History (Theracran) hydrocortisone 1 % topical cream 1 applic topical DAILY 09/06/24 09/06/24 Unknown History with perineal applicator kxcwopvrpyjsg-VJ-rdeillbrrwcep 5 15 ml PO DAILY PRN Cold Symptoms 09/06/24 09/06/24 09/05/24 History mg-10 mg-325 mg/15 mL oral liquid (Daytime Cold-Flu) triamcinolone acetonide 0.1 % 1 applic topical TID 09/06/24 09/06/24 09/06/24 History lotion Allergies Allergy/AdvReac Type Severity Reaction Status Date / Time latex Allergy BURNING Verified 09/06/24 12:51 PFSH Acute PFSH: Medical History Sepsis Acute UTI Bilateral ureteral calculi Bilateral renal stones Chronic constipation Neurogenic bladder Urinary retention Multiple sclerosis History of Surgical History Status post cholecystectomy Chronic suprapubic catheter Family History Other Pancreatic cancer Social History Alcohol intake: never Caregiver/support person: Yes Marital status: Vitals/I&O/Wt Last Vital Signs Temp 99.0 F 09/06/24 18:17 Pulse 105 H 09/06/24 18:17 Resp 15 09/06/24 18:17 BP 138/91 09/06/24 18:17 Pulse Ox 95 09/06/24 18:17 O2 Del Method Room Air 09/06/24 18:17 09/06/24 09/06/24 09/06/24 06:59 14:59 22:59 Intake Total 50 / 50 Balance 50 / 50 Weight last 48 hrs Weight 72.575 kg Physical Exam Narrative: Patient looks slightly dehydrated Abdomen soft No pressure ulcers noted Vancomycin associated rash around the face noted, No active respiratory distress Currently on room air Tachycardia Normotensive Suprapubic catheter in place with yellow-colored urine I did not appreciate hematuria S1, S2 tachycardia Abdomen soft Neuroexam is limited Lower extremity mistress atrophy of muscles Sarcopenia Extremity contracture Data 09/06/24 13:00 09/06/24 13:39 A&P Assessment and plan (1) Neck mass: (2) Bilateral ureteral calculi: (3) Hydronephrosis: (4) Neurogenic bladder: (5) Chronic suprapubic catheter: (6) Multiple sclerosis: (7) RSV (acute bronchiolitis due to respiratory syncytial virus): (8) Hydronephrosis: (9) Acute UTI: Plan RSV infection Currently on room air Afebrile No sign of sepsis Will continue DuoNeb treatment along with Decadron Recurrent UTI Previous culture showed Klebsiella and Enterobacteria: Continue Zosyn Requested cultures Bedbound related to multiple sclerosis No active worsening of pressure ulcers Suprapubic catheter secondary to neurogenic bladder patient is due for an exchange by tomorrow, mostly at home exchanges the catheter, No active gross hematuria noted Nephrolithiasis multiple right renal calculi mild to moderate hydronephrosis without ureteral dilation partial obstruction versus pyelonephritis/UTI Creatinine within normal range, patient is afebrile, no sign of sepsis In case patient starts showing sign of sepsis, then he will need transfer for urology for now we are treating him conservatively Family is agreeable Constipation: Will give lactulose and enema Full code discussed with the family and the patient I will use mechanical soft diet DVT prophylaxis heparin Spoke with the family, daughter helped with interpretation Previous records revealed recurrent UTIs, Attestations Medical Necessity Statement*: More than 2 midnights anticipated Diagnoses Neck mass R22.1 Bilateral ureteral calculi N20.1 Hydronephrosis N13.30 Neurogenic bladder N31.9 Chronic suprapubic catheter Z93.59 Multiple sclerosis G35 RSV (acute bronchiolitis due to respiratory syncytial virus) J21.0 Acute UTI N39.0
[2024-09-06 19:04] LABS: Procalcitonin 0.08 ng/mL (0-0.5)
--- NOTE | 2024-09-06 20:48 | PC.NURSE ---
Per day shift, nurse patient became red during IV Vanc infusion. Vanc was paused by day shift nurse and IV Benadryl ordered. Verified with Dr. Yu if he wants the IV vancomycin infusion to be finished after patient receives IV Benadryl and IV Solu-medrol. He ordered to NOT finish the infusion and to discontinue the Vanc. Currently awaiting ipad for steeple jack to educate patient on medications before administering medications.
[2024-09-06] MEDS: diphenhydrAMINE 50 mg/mL SDV 1mL 25 MG IVP (21:59)
[2024-09-06] MEDS: methylPREDNISolone sod succ 40 mg/mL INJ 30 MG IVP (21:59)
[2024-09-06] MEDS: piperacillin-tazobactam 4.5 GM in sodium chloride 0.9% (plus) 50 ML IV (21:59)
[2024-09-06] MEDS: heparin 5,000 unit/mL INJ 1 mL 5000 UNIT SUBCUT (21:59)
[2024-09-06] MEDS: sodium chloride 0.9% 1,000 ML 75 ML IV (22:00)
--- NOTE | 2024-09-06 22:57 | PC.NURSE ---
Addendum entered by Shira Burroughs RN 09/06/24 23:02: No wounds on patient. Original Note: Via art professor, discussion with and patient: Patient and refusing Lactulose and enema. This RN educated on Lactulose and enema. They are in agreeance to try Lactulose first and do an enema if the Lactulose does not work. states she is not very concerned with patient's constipation. She states the patient's last BM was Thursday and that he is not pooping because he hasn't been eating much. states that the patient can swallow pills whole, but that the patient requires a soft diet for food. states that the patient will need an 18 Yoruba latex free parker catheter for when his catheter is changed out tomorrow.
[2024-09-06] MEDS: lactulose oral liq 20 gm/30 mL UDC PO (23:09)
[2024-09-07] VITALS (9 sets, daily range): BP systolic 133–144; BP diastolic 49–90; PULSE 89–113; RESP 15–21; TEMP 36.4–36.8; O2SAT 93–96
--- NOTE | 2024-09-07 04:14 | PC.NURSE ---
Milk and Molassess enema administered with moderate, soft bowel movement returned. Suprapubic catheter changed. 18F latex free used. refused stat lock and used tape that she uses at home instead.
[2024-09-07] MEDS: piperacillin-tazobactam 4.5 GM in sodium chloride 0.9% (plus) 50 ML IV ×3 (04:22→21:16)
[2024-09-07 06:21] LABS: Basophils % 0.2 %; Lymphocytes # 1.1 10^3/uL (0.8-4.8); Lymphocytes % 26.1 %; Mean Corpuscular HGB Conc 32.4 g/dL (30-55); Mean Corpuscular Hemoglobin 28.5 pg (27-33); Mean Corpuscular Volume 88.1 fl (82-101); Mean Platelet Volume 9.1 fL (7.4-10.4); Monocytes # 0.1 10^3/uL (0.2-0.9); Neutrophils # 2.89 10^3/uL (1.8-7.7); Neutrophils % 70.5 %; Nucleated Red Blood Cells % 0 %; Platelet Count 242 10^3/cmm (157-399); Red Blood Count 4.77 10^6/uL (3.85-5.65); Red Cell Distribution Width 13.3 % (12.1-15.1)
[2024-09-07 06:33] LABS: Blood Urea Nitrogen 12 mg/dL (6-20); Calcium 8.5 mg/dL (8.5-10.5); Carbon Dioxide 22 mmol/L (22-29); Chloride 107 mmol/L (98-107); Creatinine Clr Calc Pharmacy 253.1264; Glomerular Filtration Rate 307.9 mL/min (90-130); Glucose 159 mg/dL (65-115); Magnesium 2.2 mg/dL (1.7-2.3); Osmolality Calculated 299 mOsm/kg (285-295); Sodium 143 mmol/L (136-145)
[2024-09-07 07:24] LABS: Slide Review Slide Review Perform
--- NOTE | 2024-09-07 08:48 | PC.CHAP ---
Pastoral Care Encounter/Spiritual Assessment Type of Contact [] Declined assistant professor of art visit [] Patient/Family/Request visit [] Outpatient visit [] Follow-up visit [] Physician referral [] Code/Alert [] Routine visit [] Staff referral [] Actively dying [] Patient sleeping [] Family support [] [] Out of room [] Palliative care [] [] Receiving care in room [] Pre-surgical visit [] Trauma [] Long length of stay [] ICU visit [x] Other:Contact precautions. No visit. Relational/Emotional Strength [] Patient feels connected with others/family/visitors/staff [] Distress [] Loneliness/isolation [] Abandonment Spirituality of Patient [] Person of Jia [] Attends Congregational of their Jia [] Believes in Prayer [] Reads Bible or Taoist materials [] There are Spiritual issues to be addressed Manager Pacu Interventions [] Prayer [] Active listening [] Non-anxious presence [] Spiritual/emotional support [] Crisis/trauma care [] Spiritual counseling [] Bereavement support [] Provided bereavement packet [] Provided Bible/devotional materials [] Provided toy/stuffed animal, coloring book to patient or family member [] Provided Communion [] Anointing/[place] [] Salvation [] Completed spiritual assessment [] Other: Impact on Illness or Injury [] Angry [] Fearful [] Anxious [] Often cries [] Exhaustion [] Unable to work [] Unable to attend islam [] Unable to walk/stand [] Unable to read [] Unable to drive [] Unable to eat/drink [] Unable to sleep [] Unable to be with family [] Patient intubated [] Other: Summary Time spent with patient
[2024-09-07] MEDS: lactulose oral liq 20 gm/30 mL UDC PO (09:15)
[2024-09-07] MEDS: heparin 5,000 unit/mL INJ 1 mL 5000 UNIT SUBCUT ×2 (09:15→21:20)
[2024-09-07] MEDS: methylPREDNISolone sod succ 40 mg/mL INJ 30 MG IVP ×2 (09:15→21:18)
[2024-09-07] MEDS: sodium chloride 0.9% 100 mL Bag 60 ML XX ×2 (09:15→17:10)
[2024-09-07] MEDS: tamsulosin 0.4 mg Capsule PO (09:16)
--- NOTE | 2024-09-07 09:45 | P.PN_ITS ---
Subjective 2 Subjective: Seen this morning Patient's is at bedside. Patient denies any pain at this time. She states he is feeling better. Afebrile overnight Vitals/I&O/Wt Last Vital Signs Temp 98.3 F 09/07/24 08:00 Pulse 105 H 09/07/24 08:00 Resp 18 09/07/24 08:00 BP 144/49 09/07/24 08:00 Pulse Ox 94 09/07/24 08:00 O2 Del Method Room Air 09/07/24 08:00 09/06/24 09/07/24 09/07/24 22:59 06:59 14:59 Intake Total 300 / 350 50 / 400 Output Total 550 / 550 350 / 900 Balance -250 / -200 -300 / -500 Weight last 48 hrs Weight 64.093 kg Weight 72.575 kg Weight 72.575 kg Physical Exam 2 Narrative: Appears slightly dehydrated. Abdomen soft No pressure ulcers noted Vancomycin associated rash around the face noted, No active respiratory distress Currently on room air Tachycardia Normotensive Suprapubic catheter in place with yellow-colored urine?no hematuria noted. S1, S2 normal, regular rate rhythm Abdomen soft Neuroexam is limited Lower extremity mistress atrophy of muscles Sarcopenia Extremity contracture Data 09/07/24 06:08 09/07/24 06:08 Micro: Microbiology 09/06/24 18:10 Blood Culture - Preliminary Blood SPECIMEN COLLECTED 09/06/24 18:08 Blood Culture - Preliminary Blood SPECIMEN COLLECTED A&P Assessment and plan (1) Neck mass: (2) Bilateral ureteral calculi: (3) Hydronephrosis: (4) Neurogenic bladder: (5) Chronic suprapubic catheter: (6) Multiple sclerosis: (7) RSV (acute bronchiolitis due to respiratory syncytial virus): (8) Hydronephrosis: (9) Acute UTI: Plan RSV infection Currently on room air Afebrile No sign of sepsis Will continue DuoNeb treatment along with Decadron Recurrent UTI Previous culture showed Klebsiella and Enterobacteria: Continue Zosyn Requested cultures Bedbound related to multiple sclerosis No active worsening of pressure ulcers Suprapubic catheter secondary to neurogenic bladder patient is due for an exchange by tomorrow, mostly at home exchanges the catheter, No active gross hematuria noted Nephrolithiasis multiple right renal calculi mild to moderate hydronephrosis without ureteral dilation partial obstruction versus pyelonephritis/UTI Creatinine within normal range, patient is afebrile, no sign of sepsis In case patient starts showing sign of sepsis, then he will need transfer for urology for now we are treating him conservatively Family is agreeable Constipation: Will give lactulose and enema Full code discussed with the family and the patient I will use mechanical soft diet DVT prophylaxis heparin Spoke with the family, daughter helped with interpretation Previous records revealed recurrent UTIs, 09/07/2024 -Continue management as per assessment plan. Await urine culture Blood culture Continue Zosyn 12 pubic catheter to be changed today. Will discuss with nursing staff ? Count normal Check labs in a.m. Attestations 2 Medical Necessity Statement*: More than 2 midnights anticipated Diagnoses Neck mass R22.1 Bilateral ureteral calculi N20.1 Hydronephrosis N13.30 Neurogenic bladder N31.9 Chronic suprapubic catheter Z93.59 Multiple sclerosis G35 RSV (acute bronchiolitis due to respiratory syncytial virus) J21.0 Acute UTI N39.0
[2024-09-07] MEDS: sodium chloride 0.9% 1,000 ML 75 ML IV ×2 (10:22→23:21)
[2024-09-08] VITALS (7 sets, daily range): BP systolic 127–149; BP diastolic 81–90; PULSE 85–92; RESP 14–20; TEMP 36.7–36.8; O2SAT 93–95
[2024-09-08 04:45] LABS: Basophils % 0.2 %; Hematocrit 37.2 % (37-53); Lymphocytes # 1.3 10^3/uL (0.8-4.8); Mean Corpuscular HGB Conc 30.9 g/dL (30-55); Mean Corpuscular Hemoglobin 27.7 pg (27-33); Mean Corpuscular Volume 89.6 fl (82-101); Mean Platelet Volume 9.7 fL (7.4-10.4); Monocytes # 0.3 10^3/uL (0.2-0.9); Monocytes % 6.4 %; Neutrophils % 64.1 %; Nucleated Red Blood Cells % 0 %; Platelet Count 258 10^3/cmm (157-399); Red Blood Count 4.15 10^6/uL (3.85-5.65); Red Cell Distribution Width 13.1 % (12.1-15.1); White Blood Count 4.53 10^3/uL (3.29-11.43)
[2024-09-08 05:10] LABS: Anion Gap 9.6 (5-19); Blood Urea Nitrogen 12 mg/dL (6-20); Calcium 8.4 mg/dL (8.5-10.5); Carbon Dioxide 25 mmol/L (22-29); Chloride 112 mmol/L (98-107); Creatinine Clr Calc Pharmacy 253.1264; Glomerular Filtration Rate 307.9 mL/min (90-130); Glucose 170 mg/dL (65-115); Osmolality Calculated 300 mOsm/kg (285-295); Potassium 3.6 mmol/L (3.5-5.1); Sodium 143 mmol/L (136-145)
[2024-09-08] MEDS: piperacillin-tazobactam 4.5 GM in sodium chloride 0.9% (plus) 50 ML IV ×2 (05:32→12:21)
[2024-09-08] MEDS: tamsulosin 0.4 mg Capsule PO (08:42)
[2024-09-08] MEDS: methylPREDNISolone sod succ 40 mg/mL INJ 30 MG IVP (08:42)
[2024-09-08] MEDS: heparin 5,000 unit/mL INJ 1 mL 5000 UNIT SUBCUT (08:43)
[2024-09-08] MEDS: sodium chloride 0.9% 100 mL Bag 60 ML XX (08:47)
[2024-09-08] MEDS: sodium chloride 0.9% 1,000 ML 75 ML IV (12:22)
--- NOTE | 2024-09-08 13:48 | PC.SOCIAL ---
Nurse norified CM that patient needs a stretcher medicaid ride set up to get home. CM called [place] and set up ride. #[phone]
--- NOTE | 2024-09-08 14:10 | PM.DCS ---
Discharge Providers Date of Admission: 09/06/24 16:14 Date of Discharge: September 08, 2024 Attending Provider at Admission: Natacha Bahena MD Attending Provider at Discharge: Natacha Bahena MD Primary Care Provider: Gaby Martines MD Diagnoses at Discharge Discharge Diagnosis (1) Neck mass: Status: Acute (2) Bilateral ureteral calculi: Status: Acute (3) Hydronephrosis: Status: Acute (4) Neurogenic bladder: Status: Acute (5) Chronic suprapubic catheter: Status: Acute (6) Multiple sclerosis: Status: Acute Permanent problem details: History of (7) RSV (acute bronchiolitis due to respiratory syncytial virus): Status: Resolved (8) Acute UTI: Status: Resolved Reason for Visit Reason for Visit: Fever Hospital Course Hospital Course [place] warehouse logistics manager was used to talk to patient and his . Patient presented with RSV infection however was on room air and was asymptomatic from respiratory standpoint. Found to have UTI in ER and treated with Zosyn. Cultures requested. Patient also found to have mild to moderate hydronephrosis without ureteral dilatation partial obstruction versus pyelonephritis/UTI. Case was discussed with urology in [place] and discussed with Dr. Gates who would like to see patient in his clinic within the next week for possible stent placement and stone removal versus lithotripsy. At this time patient is not showing any signs of sepsis he is afebrile white count is normal. Is back to his baseline. Patient's suprapubic catheter was changed during hospitalization. Above plan was discussed with patient's and she was in agreement. There was concern regarding transportation to go see urology as an outpatient for which I discussed patient's care with his primary care doctor Dr. Brower over the phone. She will help patient set up medical transport to get to the urology appointment in the upcoming week. Will discharge patient home via ambulance in stable condition at this time. Urine culture during hospitalization did not show any growth however there is a possibility that he was given antibiotics prior to obtaining the sample.Pt will be sent home on cefdinir and Levaquin. Physical Exam Narrative: Appears well today Abdomen soft No pressure ulcers noted Vancomycin associated rash around the face noted, No active respiratory distress Currently on room air Normotensive Suprapubic catheter in place with yellow-colored urine?no hematuria noted. S1, S2 normal, regular rate rhythm Abdomen soft Neuroexam is limited Lower extremity mistress atrophy of muscles Sarcopenia Extremity contracture Discharge Data Studies Completed and Pending Completed Studies During Hospitalization Category Date Time Status CT abdomen pelvis w con* [id number] Stat Cat Scan 09/06/24 16:15 Completed XR chest 1V portable [id number] Stat Exams 09/06/24 13:27 Completed Pending at discharge Category Date Time Status Blood Culture Stat Lab 09/06/24 18:10 Results Sputum Culture and Gram Stain Stat Lab 09/06/24 16:20 Uncollected Urine Culture Stat Lab 09/07/24 15:00 Results Urine Culture Stat Lab 09/08/24 08:52 Uncollected Radiology Impressions Chest X-Ray 09/06/24 13:27 Impression: Negative chest. Abdomen/Pelvis CT 09/06/24 16:15 IMPRESSION: 1. Multiple right renal calculi, with the largest measuring 8.5 mm within the inferior right renal pelvis. Xfmn-ks-vovnkrrr hydronephrosis of the right kidney without findings of ureteral dilatation or ureteral calculus. Consider partial UPJ obstruction or underlying infection/pyelonephritis. 2. Suprapubic catheter within the urinary bladder which is decompressed. Mild adjacent stranding and consider inflammation/infection. 3. Suggestion of previous cholecystectomy. 4. Ykzge-aqjmahe-ywos-left bibasilar atelectasis on the lung windows. 5. Qenjlziu-zt-rbxtd stool content within the sigmoid colon and rectum. Laboratory Results WBC 4.53 10^3/uL (3.29-11.43) 09/08/24 03:55 RBC 4.15 10^6/uL (3.85-5.65) 09/08/24 03:55 Hgb 11.50 g/dL (11.27-16.99) 09/08/24 03:55 Hct 37.2 % (37-53) 09/08/24 03:55 MCV 89.6 fl (82-101) 09/08/24 03:55 MCH 27.7 pg (27-33) 09/08/24 03:55 MCHC 30.9 g/dL (30-55) 09/08/24 03:55 RDW 13.1 % (12.1-15.1) 09/08/24 03:55 Plt Count 258 10^3/cmm (157-399) 09/08/24 03:55 MPV 9.7 fL (7.4-10.4) 09/08/24 03:55 Neut % (Auto) 64.1 % 09/08/24 03:55 Lymph % (Auto) 28.0 % 09/08/24 03:55 [place] % (Auto) 6.4 % 09/08/24 03:55 Eos % (Auto) 0.0 % 09/08/24 03:55 Baso % (Auto) 0.2 % 09/08/24 03:55 Neut # (Auto) 2.90 10^3/uL (1.8-7.7) 09/08/24 03:55 Lymph # (Auto) 1.3 10^3/uL (0.8-4.8) 09/08/24 03:55 [place] # (Auto) 0.3 10^3/uL (0.2-0.9) 09/08/24 03:55 Eos # (Auto) 0.0 10^3/uL (0.0-0.8) 09/08/24 03:55 Baso # (Auto) 0.0 10^3/uL (0.0-0.1) 09/08/24 03:55 Nucleated RBC % (auto) 0 % 09/08/24 03:55 Nucleated RBCs # 0.0 /100WBC 09/08/24 03:55 Sodium 143 mmol/L (136-145) 09/08/24 03:55 Potassium 3.6 mmol/L (3.5-5.1) 09/08/24 03:55 Chloride 112 mmol/L (98-107) H 09/08/24 03:55 Carbon Dioxide 25 mmol/L (22-29) 09/08/24 03:55 Anion Gap 9.6 (5-19) 09/08/24 03:55 BUN 12 mg/dL (6-20) 09/08/24 03:55 Creatinine 0.3 mg/dL (0.7-1.2) L 09/08/24 03:55 GFR Calculation 307.9 mL/min (90-130) H 09/08/24 03:55 Glucose 170 mg/dL (65-115) H 09/08/24 03:55 Calculated Osmolality 300 mOsm/kg (285-295) H 09/08/24 03:55 Lactic Acid 1.0 mmol/L (0.5-2.2) 09/06/24 13:08 Calcium 8.4 mg/dL (8.5-10.5) L 09/08/24 03:55 Magnesium 2.0 mg/dL (1.7-2.3) 09/08/24 03:55 Total Bilirubin 1.0 mg/dL (0.15-1.2) 09/06/24 13:39 AST 104 U/L (0-40) H 09/06/24 13:39 ALT 98 U/L (0-41) H 09/06/24 13:39 Alkaline Phosphatase 114 U/L (40-130) 09/06/24 13:39 Creatine Kinase 36 U/L (39-308) L 09/06/24 13:39 NT-Pro-B Natriuret Pep 37 pg/mL (0-125) 09/06/24 13:39 Total Protein 6.9 g/dL (6.6-8.7) 09/06/24 13:39 Albumin 3.5 g/dL (3.5-5.2) 09/06/24 13:39 Globulin 3.4 g/dL (1.3-4.6) 09/06/24 13:39 Lipase 26 U/L (13-60) 09/06/24 13:39 Procalcitonin 0.08 ng/mL (0-0.5) 09/06/24 13:39 Urine Color Yellow (Yellow) 09/06/24 12:53 Urine Appearance Turbid (CLEAR) A 09/06/24 12:53 Urine pH 6.0 (5-7) 09/06/24 12:53 Ur Specific [place] 1.016 (1.005-1.030) 09/06/24 12:53 Urine Protein 1+ (Negative) A 09/06/24 12:53 Urine Glucose (UA) Negative (Normal) 09/06/24 12:53 Urine Ketones Trace (Negative) 09/06/24 12:53 Urine Blood 2+ (Negative) A 09/06/24 12:53 Urine Nitrate Negative (Negative) 09/06/24 12:53 Urine Bilirubin Negative (Negative) 09/06/24 12:53 Urine Urobilinogen 1.0 mg/dL (Negative) 09/06/24 12:53 Ur Leukocyte Esterase 3+ (Negative) A 09/06/24 12:53 Urine RBC 21-50 /hpf (0-2) H 09/06/24 12:53 Urine WBC >100 /hpf (0-5) H 09/06/24 12:53 Ur Squamous Epith Cells 0-5 /hpf (0-5) 09/06/24 12:53 Amorphous Sediment 2+ /hpf 09/06/24 12:53 Urine Bacteria 4+ /hpf (NONE) H 09/06/24 12:53 Hyaline Casts 51.70 /lpf 09/06/24 12:53 Coronavirus (PCR) Negative (Negative) 09/06/24 12:52 Influenza A (PCR) Negative (Negative) 09/06/24 12:52 Influenza Type B (PCR) Negative (Negative) 09/06/24 12:52 RSV (PCR) Positive (Negative) A 09/06/24 12:52 Vitals Last Vital Signs Temp 98.2 F 09/08/24 11:38 Pulse 88 09/08/24 11:38 Resp 16 09/08/24 11:38 BP 149/88 09/08/24 11:38 Pulse Ox 93 09/08/24 11:38 O2 Del Method Room Air 09/08/24 11:38 Discharge Plan Discharge Patient Disposition: Home Condition: Stable Prescriptions: Continued bisacodyl 10 mg suppository 10 mg AK DAILY PRN (Reason: CONSTAPATION) triamcinolone acetonide 0.1 % lotion 1 applic TOPICAL TID hydrocortisone 1 % cream with perineal applicator 1 applic topical DAILY Daytime Cold-Flu 5-10-325 mg/15 mL Liquid 15 ml PO DAILY PRN (Reason: Cold Symptoms) Theracran 650 mg Capsule 1,300 mg PO DAILY Rx Instructions: administer with a meal sodium chloride 0.9 % solution See Rx Instructions .ROUTE .COMPLEX Rx Instructions: USE 60 ML TO IRRIGATE SP TUBE TWICE DAILY Discharge Orders: Discharge Order (Routine); Ordered 09/08/24 Ordered By: Natacha Bahena Referrals: Tin Gates [Referring] - 1-3 days (Dr. Gates will schedule appointment for next week (as per Dr. Gates). Large kidney stone with pyelo and partial obstruction) Gaby Martines MD [Primary Care Provider] - 1-3 days (We have notified your physician's clinic of the need for a follow-up appointment to be scheduled. If you have not heard from them within the next 2 business days, please call them directly. ) Discharge Diet: Usual diet Discharge Activity: Resume usual activity Patient Instructions: Levofloxacin (By mouth) (Levaquin, Levaquin Leva-angelika), Cefdinir (By mouth), Hydronephrosis (GEN), Opioid Safety Discharge Attestations Time Spent in Discharge Care*: less than 30 min Status at Discharge: Cognitive status at discharge: moderately impaired cognition, Behavioral status at discharge: cooperative, Quality Metrics Clinical Quality Measures [ No reported AMI, CVA or VTE this stay] Coding Level of Care Code Acute Code for Chg Fwd Diagnoses Neck mass R22.1 Bilateral ureteral calculi N20.1 Hydronephrosis N13.30 Neurogenic bladder N31.9 Chronic suprapubic catheter Z93.59 Multiple sclerosis G35 RSV (acute bronchiolitis due to respiratory syncytial virus) J21.0 Acute UTI N39.0
== END 2024-09-08 18:48 | disposition home or self-care (01) | DRG 699 ==
LOC: ER 13:29 → MEDSURG 16:14
PROVIDERS: Admitting Provider Internal Medicine; Emergency Provider Family Medicine; PCP Family Medicine; Visit Provider Internal Medicine
DX: T83.510A Infection and inflammatory reaction due to cystostomy catheter, initial encounter (principal); N13.6 Pyonephrosis; N20.1 Calculus of ureter; J20.5 Acute bronchitis due to respiratory syncytial virus; B97.4 Respiratory syncytial virus as the cause of diseases classified elsewhere; N31.9 Neuromuscular dysfunction of bladder, unspecified; K59.00 Constipation, unspecified; G35 Multiple sclerosis; Y73.1 Therapeutic (nonsurgical) and rehabilitative gastroenterology and urology devices associated with adverse incidents; Z74.01 Bed confinement status; Z11.52 Encounter for screening for COVID-19; Z87.440 Personal history of urinary (tract) infections; Z80.8 Family history of malignant neoplasm of other organs or systems; Z86.16 Personal history of COVID-19; L27.1 Localized skin eruption due to drugs and medicaments taken internally; T36.8X5A Adverse effect of other systemic antibiotics, initial encounter; Y92.230 Patient room in hospital as the place of occurrence of the external cause
CPT/HCPCS: 36415; 71045; 74177; 80048; 80053; 81001; 82550; 83605; 83690; 83735; 83880; 84145; 85025; 87040; 87086; 87637; 96365; 96367; 96372; 99232; 99285; J1200; J1644; J2543; J2919; J3372; J7030